=== PATIENT | male | born 1980 | race Caucasian/White ===

== ENCOUNTER 2019-01-04 22:31 | Emergency (ER) | payer OTHER ==
[~2019-01-04] VITALS: Ht 185.4 cm; Wt 143.2 kg
--- OUTSIDE RECORDS SUMMARY | ~2019-01-04 | XMS | Encounter Summary ---
Demographics + + + | Address | [address] | | | [place] [address] | + + + | Home Phone | | + + + | Preferred Language | Unknown | + + + | Marital Status | Single | + + + | Anabaptism Affiliation | NRP | + + + | Race | White | + + + | Ethnic Group | Not or | + + + Author + + + | Author | [facility] | + + + | Organization | [facility] | + + + | Address | Unknown | + + + | Phone | Unavailable | + + + Support + + +---------+ + | Name | Relationship | Address | Phone | + + +---------+ + | Marla Portillo | ECON | Unknown | | + + +---------+ + | Celia Castellanos | ECON | Unknown | | + + +---------+ + Care Team Providers + +------+ + | Care Pathology Tech Name | Role | Phone | + +------+ + | No Pcp Per Patient | PCP | Unavailable | + +------+ + Encounter Details +--------+ + + + + | Date | Type | Department | Care Team | Description | +--------+ + + + + | 09/13/ | Pharmacy | Outpatient Retail | | | | 2015 | Visit | [facility] | | | | | | [address] | | | | | | [facility] | | | | | | [place], [place] | | | | | | [address] | | | +--------+ + + + + Social History + + + +--------+------+ | Tobacco Use | Types | Packs/Day | Years | Date | | | | | Used | | + + + +--------+------+ | Current Every Day | Cigarettes | 1 | 24 | | | Smoker | | | | | + + + +--------+------+ + +---+---+---+ | Smokeless Tobacco: | | | | | Never Used | | | | + +---+---+---+ + + | Comments: smoking since age 10 | + + + + +---------+ + | Alcohol Use | Drinks/Week | oz/Week | Comments | + + +---------+ + | No | 0 Standard drinks | 0.0 | | | | or equivalent | | | + + +---------+ + + + + | Sex Assigned at | Date Recorded | | | | + + + | Not on file | | + + + + + + + | Job Start Date | Occupation | Industry | + + + + | Not on file | Not on file | Not on file | + + + + + + + + | Travel History | Travel Start | Travel End | + + + + + + | No recent travel history available. | + + documented as of this encounter Plan of Treatment Not on filedocumented as of this encounter Visit Diagnoses Not on filedocumented in this encounter"
--- OUTSIDE RECORDS SUMMARY | ~2019-01-04 | XMS | Encounter Summary ---
Demographics + + + | Address | [address] | | | [place] [address] | + + + | Home Phone | | + + + | Preferred Language | Unknown | + + + | Marital Status | Single | + + + | Mormon Affiliation | NRP | + + + | Race | White | + + + | Ethnic Group | Not or | + + + Author + + + | Author | [facility] | + + + | Organization | [facility] | + + + | Address | [...] Team Providers + +------+ + | Care Draw Frame Tender Name | Role | Phone | + +------+ + | Ana Ascencio NP | PCP | Unavailable | + +------+ + Encounter Details +--------+ + + + + | Date | Type | Department | Care Team | Description | +--------+ + + + + | 09/30/ | Telephone | Hematology/Medical | Rut Slade, | | | 2016 | | Oncology at [place] | MD Darron Lerner | | | | | [facility] | [place], [place] | | | | | [address] | [address] | | | | | Mailcode: [place] | [phone] | | | | | for Health and | | | | | | Healing, [address] | | | | | | [place], [place] | | | | | | [address] | | | | | | [phone] | | | +--------+ + + + [...]
--- OUTSIDE RECORDS SUMMARY | ~2019-01-04 | XMS | Encounter Summary ---
Demographics + + + | Address | [address] | | | [place] [address] | + + + | Home Phone | | + + + | Preferred Language | Unknown | + + + | Marital Status | Single | + + + | Adventism Affiliation | NRP | + + + | Race | White | + + + | Ethnic Group | Not or | + + + Author + + + | Author | [facility] | + + + | Organization | [facility] | + + + | Address [...] Team Providers + +------+ + | Care Mining Engineer Name | Role | Phone | + +------+ + | No Pcp Per Patient | PCP | Unavailable | + +------+ + Reason for Visit Consultation (Routine) +--------+--------+ + + + + | Status | Reason | Specialty | Diagnoses / | Referred By | Referred To | | | | | Procedures | Contact | Contact | +--------+--------+ + + + + | Closed | | Hematology & | Diagnoses | Vasquez, | [place], | | | | Oncology | Perirectal | [place] | MD Rut | | | | | abscess | [address] [address] | [address] | | | | | Procedures | [address] | | | | | CONSULT TO | [facility] | [place], [place] | | | | | HEMATOLOGY / | Rd | [address] | | | | | ONCOLOGY | [facility] [place] | Phone: | | | | | | [address] | [phone] | | | | | | Phone: | Fax: | | | | | | [phone] | [phone] | | | | | | Fax: | | | | | | | [phone] | | +--------+--------+ + + + + Encounter Details +--------+---------+ + + + | Date | Type | Department | Care Team | Description | +--------+---------+ + + + | 09/24/ | Office | Hematology/Medical | Rut Slade, | Chronic deep vein | | 2017 | Visit | Oncology at Center | [address] | thrombosis (DVT) of | | | | for Health [facility] Healing | [place], [place] | femoral vein of left | | | | [address] | [address] | lower extremity | | | | Mailcode: [place] | [phone] | (HCC) (Primary Dx) | | | | for Health and | | | | | | Healing, [address] | | | | | | [place], [place] | | | | | | [address] | | | | | | [phone] | | | +--------+---------+ + + + Social History + + [...] + + documented as of this encounter Progress Notes Rut Slade MD - 09/24/2016 1:30 PM PSTOutpatient Hematology Note Consult: 09/25/2015 Last visit: 09/25/2015 Today: 09/24/2016 Referring provider: ALESSANDRO Steward DX: h/o L. Leg DVT [id number] US: L. Leg DVT Patient did not arrive to appointment. 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
--- OUTSIDE RECORDS SUMMARY | ~2019-01-04 | XMS | Encounter Summary ---
Demographics + + + | Address | [address] | | | [place] [address] | + + + | Home Phone | | + + + | Preferred Language | Unknown | + + + | Marital Status | Single | + + + | Baptist Affiliation | NRP | + + + | Race | White | + + + | Ethnic Group | Not or | + + + Author + + + | Author | [facility] | + + + | Organization | [facility] | + + + | Address | Unknown | + + + | Phone | Unavailable | + + + Support + + +---------+ + | Name | Relationship | Address | Phone | + + +---------+ + | Marla Kent | ECON | Unknown | | + + +---------+ + | Celia Castellanos | ECON | Unknown | | + + +---------+ + Care Team Providers + +------+ + | Care [employer]mer Name | Role | Phone | + +------+ + | Ana Ascencio SOIL SCIENCE PROFESSOR | PCP | Unavailable | + +------+ + Reason for Referral Consultation (Routine) +--------+--------+ + + + + | Status | Reason | Specialty | Diagnoses / | Referred By | Referred To | | | | | Procedures | Contact | Contact | +--------+--------+ + + + + | Closed | | Hematology & | Diagnoses | Vasquez, | [place] | | | | Oncology | Perirectal | Sully | MD Francisca | | | | | abscess | ACNP [address] | [address] | | | | | Procedures | [address] | | | | | CONSULT TO | [facility] | [place], [place] | | | | | HEMATOLOGY / | Rd | [address] | | | | | ONCOLOGY | [place], [place] | Phone: | | | | | | [address] | [phone] | | | | | | Phone: | Fax: | | | | | | [phone] | [phone] | | | | | | Fax: | | | | | | | [phone] | | +--------+--------+ + + + + Reason for Visit AUTH/CERT +--------+--------+ + + + + | Status | Reason | Specialty | Diagnoses / | Referred By | Referred To | | | | | Procedures | Contact | Contact | +--------+--------+ + + + + | | | | | | | +--------+--------+ + + + + Encounter Details +--------+ + + + + | Date | Type | Department | Care Team | Description | +--------+ + + + + | 09/10/ | Hospital | [facility] [address] | Cinthia Oro MD | | | 2016 - | Encounter | [address] | [address] | | | | | [place] [address] | [place], | | | 09/13/ | | [phone] | [place] [address] | | | 2015 | | | [phone] | | | | | | | | +--------+ + + + [...] + + documented as of this encounter Last Filed Vital Signs + + + + + | Vital Sign | Reading | Time Taken | Comments | + + + + + | Blood Pressure | 138/71 | 09/13/2015 8:02 AM | | | | | PST | | + + + + + | Pulse | 81 | 09/13/2015 8:02 AM | | | | | PST | | + + + + + | Temperature | 36.6 C (97.9 F) | 09/13/2015 8:02 AM | | | | | PST | | + + + + + | Respiratory Rate | 19 | 09/13/2015 8:02 AM | | | | | PST | | + + + + + | Oxygen Saturation | 95% | 09/13/2015 8:02 AM | | | | | PST | | + + + + + | Inhaled Oxygen | - | - | | | Concentration | | | | + + + + + | Weight | 151 kg (332 lb 12.8 | 09/10/2015 12:39 PM | | | | oz) | PST | | + + + + + | Height | 185.4 cm (6' 1") | 09/10/2015 12:39 PM | | | | | PST | | + + + + + | Body Mass Index | 43.91 | 09/10/2015 12:39 PM | | | | | PST | | + + + + + documented in this encounter Discharge Summaries Sully Ovalle ACNP - 09/13/2015 9:15 AM PST INPATIENT PHYSICIAN DISCHARGE SUMMARY [facility] Green Surgery Team Attending Physician: Cinthia Oro MD PCP: Ana Ascencio NP Admission Date: 09/10/2015 Discharge Date: Diagnoses Principal Final Diagnosis: 1. Hidradenitis suppurativa, pilonidal sinus with left pilonidal abscess, infected left gre ater than right perianal hidradenitis, morbid obesity with BMI 44, severe anal pain Additional Diagnoses: poorly controlled Type 2 Diabetes, tobacco use Procedures 1. Anorectal exam under anesthesia. 2. Drainage of pilonidal abscess. 3. Drainage of infected perianal hidradenitis, extensive. 4. Placement of 4 setons, 1 seton into the pilonidal abscess and the other 3 setons into th e right hidradenitis suppurative Reason For Admission: Morbid obesity, pilonidal sinus with left pilonidal abscess, infected left great than right perianal hidradenitis Hospital Course: Fede Townsend is a 34-year-old male, a morbidly obese ( BMI 44), diabetic male smoker, wh o complained of intermittent low back swelling, pain and drainage since about 2005 without surgical intervention. He was seen by Dr. Oro on September 10, 2015, [facility] Dr[facility] Devan Butler. He had multiple openings in the posterior anal margin and in th e left superior buttock that were draining with uncertain abscess formation. He had severe p ain as well. He was admitted for pain control on September 10, had improvement in his glycem ic control, with nutritional support, insulin coverage, and continued evaluation/discussion about his chosen foods, carb load and choosing lower portions of food, as well as meal plann ing. The hemoglobin A1 C was 10.5 on admission, from 10.4 in June 2015 at the PCP clinic at [facility] in [place]. The vascular duplex of BLE revealed a chronic righ t popliteal/femoral thrombus, non-occlusive with recommendations from Hematology for 2 weeks of 40 mg subcu Lovenox, and followup with the Parks Recreation Coordinator on September 25.. He underwen t exam under anesthesia, placement of 4 Setons, and unroofing of an inflamed hydradenitis wi thout complications.. Findings included numerous openings around the posterior anal margin , pus coming from the left posterior anal margin, a sinus in the midline that was more cep halad which communicated with a left posterior abscess. This appeared to be a pilonidal cyst with an associated abscess and partially draining infected hidradenitis suppurativa. The t unnels were well cannulated and he had placement of 3 setons on the right and 1 seton betwee n the pilonidal sinus and the abscess. There were no complications. He recovered well, wa s eating well without nausea, having bowel movements, vital signs were in range and afebrile . The CBG was 104 in the morning on average every morning, and elevated in the high 140's t o 150's after daytime intake. He was instructed in Lovenox injection daily for 13 days. . He was discharged home in stable condition on HD 4, POD 1. He will return on September 25 for followup with Hematology for discussion of his DVT and postop with Colorectal Surgery cl inic. . Discharge Medication List as of 09/13/2015 12:52 PM START taking these medications Details enoxaparin 40 mg/0.4 mL subcutaneous syringe Inject 0.4 mL under the skin once daily in the evening for 13 doses., Disp-5.2 mL, R-0, eRx oxyCODONE, immediate release, 5 mg oral tablet Take 1 to 3 tablets by mouth every 3 hours a s needed for moderate pain. Taper down to last for 2 weeks., Disp-135 tablet, R-0, eRx polyethylene glycol 17 gram/dose oral powder Dissolve 17g in at least 4 ounces of liquid an d drink once daily., Disp-255 g, R-0, eRx CONTINUE these medications which have CHANGED or have new prescriptions Details acetaminophen 325 mg oral tablet Take 1 to 2 tablets by mouth every 4 hours as needed for m oderate pain., Disp-100 tablet, R-1, eRx CONTINUE these medications which have NOT CHANGED Details cyclobenzaprine 10 mg oral tablet Take 10 mg by mouth three times daily as needed. Do not u se longer than 2-3 weeks., Historical Med docusate sodium 100 mg oral capsule Take 100 mg by mouth two times daily., Historical Med glipiZIDE 5 mg oral tablet Take 5 mg by mouth once daily., Historical Med linagliptin 5 mg oral tablet Take 5 mg by mouth once daily., Historical Med metFORMIN 1,000 mg oral tablet Take 1,000 mg by mouth two times daily., Historical Med MULTIVITAMIN ORAL Take 1 tablet by mouth once daily., Historical Med Potassium Gluconate 595 (99) mg oral tablet Take 595 mg by mouth every two days., Historica l Med PSYLLIUM SEED, WITH DEXTROSE, (FIBER ORAL) Take by mouth. Fiber gummies 2 once a day, Hist orical Med STOP taking these medications oxyCODONE-acetaminophen 5-325 mg oral tablet Comments: Reason for Stopping: Wound Care Keep your anal area dry. Shower twice daily with antibacterial soap, pat dry. Diet Diabetic (Consistent Carbohydrate) Diabetic diet (Consistent Carbohydrate)- You should be careful to control your daily inta ke of carbohydrates and ensure that you are consuming the same amount of carbohydrates each day. Your health care provider will work with you to determine the appropriate amount of ca rbohydrates your body needs. Dilute your juices in half, use the diet Tea with no sugar. Se e your instructions for carb counting. Reduce desserts to 1/2, and spread out over 2 days. Activity 1. No heavy lifting > 10lbs for 2 weeks 2. No driving while on narcotics or feeling weak and dizzy 3. Tub baths or shower twice daily for anal care 4. May shower Destination: Destination: Home Condition on Discharge Stable Future Appointments Provider Department Dept Phone Center 09/25/2015 4:40 PM Cinthia Oro [facility] 6th Floor [phone] [facility] Schedule the following appointment(s) when you get home Follow up with CINTHIA ORO MD In 2 weeks. Specialty: General Surgery Contact information [address] [place] [address] Follow up with FRANCISCA BANERJEE MD On 09/25/2015. Specialty: Hematology & Oncology Why: at 1pm for follow up regarding lower extremity DVT Contact information [address] [place] [address] Other Discharge Orders and Instructions Medication Refill Instructions: If you need a refill on any narcotic pain medications, please call the clinic ([phone] ) by 2 pm on for any weekend needs. It will take 3 business days to mail any presc riptions to you. The resident will not be able to fill narcotic scripts after 5 pm daily an d on the weekends. Please plan ahead and keep track of how many pain pills you have left. When to Call the Doctor - If your incision becomes red, swollen, or has any bloody or pus-like drainage. - If you have a fever of 101.5 F or greater or if you have chills - If you have increased pain, unrelieved by your pain medications - If you have persistent nausea, vomiting, diarrhea, or no bowel movement for more than 2 d ays after discharge from the hospital - If you develop any unusual signs or symptoms, including chest pain, shortness of breath, pulmonary embolism, leg swelling, pain or redness that is abnormal for you, and other sympto ms of concern - If you have any questions or concerns. How to Call the Doctor - You may contact your doctor Wednesday through Wednesday during the day time hours by calling [facility] surgery office at [phone] - After hours, weekends and holidays, you may call the hospital paving machine operator at [phone] an d have the tone artist apprentice [place] Team for general surgery paged. Constipation: It is very important to avoid constipation and straining while trying to have a bowel movem ent. It is common to experience constipation after your operation and when taking narcotics . There are medication like stool softeners ( colace a.k.a. Docusate Sodium) or laxatives ( miralax, senokot+stool softener, Dulcolax suppository). Please work towards having a bowel movement every 1-2 days. A hot drink each morning will also help the sphincter to work in p ushing the stool forward. It is important to stay hydrated, about 45- 60 fluid ounces daily , and this will help your bowel function. Pain: It is expected that you will experience pain after your operation, and it is important to h ave you manage your pain to increase your activity, sleep and overall healing. You are bein g sent home with a prescription for pain relief. This should be taken every 3-6 hours per y our instructions. Some medications, like lortab or hydrocodone have Tylenol in it. Make yaya e you do not take more than 3,000 mg of tylenol or acetaminophen in 24 hours. Outstanding labs/studies: ALESSANDRO Steward [facility] [address] [facility] [place] [address] Discharging Physician: ALESSANDRO Steward Attending Physician: Cinthia Oro MD documented in thi s encounter Medications at Time of Discharge + + + +---------+--------+ + | Medication | Sig | Dispensed | Refills | Start | End Date | | | | | | Date | | + + + +---------+--------+ + | glipiZIDE 5 mg | Take 5 mg by mouth | | 0 | | | | oral tablet | once daily. | | | | | + + + +---------+--------+ + | linagliptin 5 mg | Take 5 mg by mouth | | 0 | | | | oral tablet | once daily. | | | | | + + + +---------+--------+ + | metFORMIN 1,000 mg | Take 1,000 mg by | | 0 | | | | oral tablet | mouth two times | | | | | | | daily. | | | | | + + + +---------+--------+ + | MULTIVITAMIN ORAL | Take 1 tablet by | | 0 | | | | | mouth once daily. | | | | | + + + +---------+--------+ + | Potassium | Take 595 mg by mouth | | 0 | | | | Gluconate 595 (99) | every two days. | | | | | | mg oral tablet | | | | | | + + + +---------+--------+ + | PSYLLIUM SEED, | Take by mouth. | | 0 | | | | WITH DEXTROSE, | Fiber gummies 2 once | | | | | | (FIBER ORAL) | a day | | | | | + + + +---------+--------+ + documented as of this encounter Progress Notes Sully Ovalle ACNP - 09/13/2015 7:41 AM PST [facility] Green Surgery Inpatient Progress Note Hospital Day #3 Author: ALESSANDRO Steward Attending: Cinthia Oro MD ID: Fede Boyer is a 34 year old male, POD 1, HD 4 anorectal exam under anesthesia, d rainage of pilonidal abscess, drainage of infected perianal hidradenitis, extensive, 4 seton s placed Interval Hx: - Down smoking on 8th floor, nicotine patch was only used once - Pain with sitting, improved now with oral pain med - Dc today - Will discuss the need for 2 weeks of Lovenox, discuss his willingness to give these in jections, F/U with Hematology here. [address], compliance has been an issue with diabeti c management - Was given the glucose monitor, teaching was done Subjective: 1. Pain: 2. Nausea and vomitin. Diet 4. Flatus 5. Bowel Movement/ostomy: 6. Ambulation: Physical Examination Last Vitals: BP 108/45 | Pulse 97 | Temp 36.8 C (98.2 F) | RR 20 | Ht 1.854 m (6' 1") | Wt 150.957 kg (332 lb 12.8 oz) | SpO2 95% | BMI 43.92 kg/(m^2) 24 Hour Vital Min/Max: Systolic (24hrs), Av mmHg, Min:108 mmHg, Max:148 mmHgDiastolic (24hrs), Av mmHg, M in:45 mmHg, Max:75 mmHgPulse Av.1 Min: 85 Max: 111 Temp Av.8 C (98.3 F) Min: 36.6 C (97.9 F) Max: 37.6 C (99.7 F) Resp Av.7 Min: 16 Max: 25 SpO2 Av.8 % Min: 82 % Max: 99 % Intake/Output Summary (Last 24 hours) at 09/13/15 0700 Last data filed at 09/13/15 0600 Gross per 24 hour Intake 3072.5 ml Output 4850 ml Net -1777.5 ml General: Awake, alert, and oriented x4, no acute distress HEENT: PERRLA, EOMI Pulm: Bilaterally clear to auscultation; negative wheezes or rales; excellent inspiratory e ffort Cardio: Regular rate and rhythm; negative murmur, rubs, or gallops; S1S2 Abdomen: Soft. Non-tender to palpation in all four quadrants, Normal active bowel sounds MS: Moves all extremities well, Warm and well perfused Derm: -no erythema, edema, ecchymosis Wound: moisture evident at the anal area, [address], decreased drainage/swellin g, no pus Current Inpatient Medications Medication Dose Route Frequency acetaminophen (TYLENOL) tablet 325-650 mg 325-650 mg oral Q4H PRN cyclobenzaprine (FLEXERIL) tablet 10 mg 10 mg oral Q8H PRN docusate sodium (COLACE) capsule 100 mg 100 mg oral BID enoxaparin (LOVENOX) injection 40 mg 40 mg subcutaneous QPM glucagon (GLUCAGEN) injection 1 mg 1 mg intramuscular PRN glucose chewable tablet 16 g 16 g oral PRN HYDROmorphone (DILAUDID) injection 0.2-0.6 mg 0.2-0.6 mg intravenous Q2H PRN insulin lispro (HUMALOG) injection subcutaneous QID nalOXone (NARCAN) injection intravenous PRN nicotine polacrilex (NICORETTE) gum 2 mg 2 mg oral PRN ondansetron (ZOFRAN) injection 4 mg 4 mg intravenous Q12H PRN oxyCODONE (immediate release) (ROXICODONE) tablet 5-15 mg 5-15 mg oral Q3H PRN promethazine (PHENERGAN) injection 12.5 mg 12.5 mg intravenous Q8H PRN Chemistries: Last 72 Hours (or 3 results): Recent Labs 09/10/15 1255 09/12/15 0528 09/12/15 1832 09/12/15 2209 09/13/15 0712 NA 139 -- 137 -- -- -- -- K 4.0 -- 4.0 -- -- -- -- CL 105 -- 103 -- -- -- -- BICARB 27 -- 27 -- -- -- -- BUN 7 -- 14 -- -- -- -- CR 0.66* -- 0.68* -- -- -- -- GLU 100* < > 137* < > 160* 104* 196* CA 8.7 -- 8.7 -- -- -- -- MG 1.4* -- 1.7* -- -- -- -- PO4 3.7 -- 4.1 -- -- -- -- < > = values in this interval not displayed. CBC with diff last 72 hours (or 3 results) Recent Labs 09/11/15 0448 09/12/15 0528 09/13/15 0517 WBC 10.44 8.66 10.82 HB 13.2* 13.3* 13.7 HCT 38.8* 38.4* 40.0* PLT 197 208 215 Patient Active Problem List Diagnosis Perirectal abscess DVT (deep venous thrombosis) ([facility]) DM2 (diabetes mellitus, type 2) ([facility]) Obesity Nicotine addiction ASSESSMENT AND PLAN: Fede Boyer is a 34 y.o. 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 PO D 1 now for anorectal exam under anesthesia, HD 4 NEURO - - Pain control: prn tylenol, prn Oral oxycodone, IV dilaudid for breakthrough CV - BP in range -Continue to monitor PULM - Room air sats in range FEN -no labs were needed GI - Pilonidal/perirectal abscess - had discussion with Dr. Quintero about findings, procedure, care and preventioin RENAL - No issues - Eval for adequate UO ENDO - Hx fo poorly controlled DM2, home medications include three hypoglycemics - Moderate insulin sliding scale, CBGs, no insulin needs in last 24hrs - Hold home oral regimen - Nutrition following for ongoing education, sugar free tea recommended - Called his PCP for last HgA1C. 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 Provide for a home One Touch Monitor. P CP contact number at [facility] is [phone]. I was able to talk with his provider, Pancho Ascencio SOIL SCIENCE PROFESSOR, who has had 2 clinic visits, changed from the prior provider due to noncom pliance. The last HgA1C was 10.4 on 07/06/2015. She added the Tragenta, with 1 tab daily (no t the 1-2 tabs he is describing with high carb intake). 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 She d iscussed exercise, lifestyle changes to improve his Diabetes. HEME/ID - Hx of prior DVT, duplex with evidence of chronic appearing popliteal/femoral thro mbus, non-occlusive, - prophy lovenox for 2 weeks, see if patient if agreeable - patient is agreeable for 2 weeks of home Lovenox, patient education. Will run the script for cost. See Hematology and Dr. Oro on September 25 ALESSANDRO Steward [facility] [address] [place] [address] This assessment and plan was formulated both independently and in conjunction with the Surg ical team as well as the attending provider above. Shun Turpin MD - 09/12/2015 1:40 PM PSTBrief Post Rounds Addendum: Final result of lower extremity duplex: RIGHT: No evidence of deep or superficial vein thrombosis in the right leg. LEFT: In the left leg, there is deep vein thrombosis in the distal femoral and popliteal ve ins. There is no evidence of superficial vein thrombosis in the left leg. This is difficult to interpret given reported history of similar clot and he has undergone some treatment. At this time, we would recommend continuing prophylactic dose lovenox (40mg daily) at the time of discharge for [address] a hematology consult (please reque st appointment with Dr. Banerjee) at the time of discharge to discuss with plaster mechanic abo ut future plans. Shun Garcia MD [facility] Internal Medicine PGY-3 Pager [phone] Patient staffed with attending physician, Dr. Banerjee, who agrees with the above assessme nt and plan. Kenny Loco Md - 09/12/2015 12:30 PM PSTINPATIENT BRIEF OPERATIVE NOTE Procedure Date: 09/12/2015 Author: Kenny Quintero MD Attending Physician: MD Brandy Assistants: MD Leon Prior to the beginning of the procedure, the team paused to verify the patient s identity , the procedure to be performed (in accordance with the consent,) and the correct side/site. The patient was positioned appropriately. All relevant images and results were properly lab eled and displayed. We addressed antibiotic prophylaxis and fluids for irrigation as applica ble to this patient. Any safety precautions were addressed. Preoperative Diagnosis: Hydradenitis, Pilonidal Disease Postoperative Diagnosis: Same Procedure Performed: Exam under anesthesia, Placement of Seton x 4, Unroofing of inflamed h ydradenitis Estimated Blood Loss: 5cc Janet Mcelroy MD - 09/12/2015 5:52 AM PST GREEN PROGRESS: Attending Physician: Cinthia Oro MD 09/12/2015 ID:Fede Boyer is a 34 y.o. 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 HD#2 INTERVAL/SUBJECTIVE: -Seen by [facility] consultant yesterday -Hematology recommendations pending final report of duplex, enoxaparin held for surgery tod ay -Feeling well this am and ready for surgery -Afebrile, non-tachycardic -Blood sugars moderately well controlled, no insulin requirements in last 24 hours -Tolerated diabetic diet yesterday MEDICATIONS: Current facility-administered medications: acetaminophen (TYLENOL) tablet 325-650 mg, 325-6 50 mg, oral, Q4H PRN, Janet Raza MD, 650 mg at 09/12/15 0025 dextrose 50 % in water IV 25 mL, 25 mL, intravenous, PRN, Janet Raza MD docusate sodium (COLACE) capsule 100 mg, 100 mg, oral, BID, Sully Ovalle, ACNP, 100 mg at 09/12/15 0025 glucagon (GLUCAGEN) injection 1 mg, 1 mg, intramuscular, PRN, Janet Raza MD glucose chewable tablet 16 g, 16 g, oral, PRN, Janet Raza MD HYDROmorphone (DILAUDID) injection 0.2-0.6 mg, 0.2-0.6 mg, intravenous, Q2H PRN, Janet Raza MD insulin lispro (HUMALOG) injection, , subcutaneous, QID, Janet Raza MD, 2 Units at 0 09/11/15 0630 lactated ringers IV, 75 mL/hr, intravenous, CONTINUOUS, ALESSANDRO Steward, Last Rate: 75 mL/hr at 09/12/15 0128, 75 mL/hr at 09/12/15 0128 nicotine (NICOTROL) 21 mg/24 hr patch 1 patch, 1 patch, transdermal, DAILY, ALESSANDRO Walters, Stopped at 09/10/15 2113 nicotine polacrilex (NICORETTE) gum 2 mg, 2 mg, oral, PRN, Janet Raza MD ondansetron (ZOFRAN) injection 4 mg, 4 mg, intravenous, Q12H PRN, Janet Raza MD oxyCODONE (immediate release) (ROXICODONE) tablet 5-15 mg, 5-15 mg, oral, Q3H PRN, ALESSANDRO Steward, 15 mg at 09/12/15 0331 sodium phosphates (FLEET) 19-7 gram/118 mL rectal enema 1 Bottle, 1 Bottle, rectal, ONCE, V ictoria ALESSANDRO Ovalle OBJECTIVE: Last Vitals: BP 138/70 | Pulse 78 | Temp 36.5 C (97.7 F) | RR 20 | Ht 1.854 m (6' 1") | Wt 150.957 kg (332 lb 12.8 oz) | SpO2 93% | BMI 43.92 kg/(m^2) 24 Hour Vital Min/Max: Systolic (24hrs), Av mmHg, Min:113 mmHg, Max:144 mmHg Diastolic (24hrs), Av mmHg, Min:61 mmHg, Max:77 mmHg Pulse Min: 68 Max: 78 Temp Min: 36.5 C (97.7 F) Max: 36.6 C (97.9 F) Resp Min: 18 Max: 20 SpO2 Min: 92 % Max: 96 % Intake/Output Summary (Last 24 hours) at 09/12/15 0554 Last data filed at 09/12/15 0500 Gross per 24 hour Intake 2371 ml Output 3125 ml Net -754 ml PHYSICAL EXAM: General: Alert and oriented, NAD Respiratory: unlabored, breathing comfortably on Room air CV: Normal peripheral perfusion Abdomen: obese, soft, nontender, nondistended. Extremities: Warm and well perfused LABS: Chemistries Recent Labs 09/10/15 1255 09/11/15 1146 09/11/15 1822 09/12/15 0025 NA 139 -- -- -- -- K 4.0 -- -- -- -- CL 105 -- -- -- -- BICARB 27 -- -- -- -- BUN 7 -- -- -- -- CR 0.66* -- -- -- -- GLU 100* < > 133* 134* 124* CA 8.7 -- -- -- -- MG 1.4* -- -- -- -- PO4 3.7 -- -- -- -- AST 26 -- -- -- -- ALT 35 -- -- -- -- AP 74 -- -- -- -- TBILI 0.4 -- -- -- -- ALB 3.1* -- -- -- -- < > = values in this interval not displayed. CBC with diff Recent Labs 09/10/15 1255 09/11/15 0448 09/12/15 0528 WBC 8.98 10.44 8.66 HB 14.8 13.2* 13.3* HCT 42.4 38.8* 38.4* PLT 228 197 208 [facility] Lab Results Component Value Date INRPT 1.14 09/10/2015 CBG's Recent Labs 09/10/15 1255 09/10/15 1324 09/10/15 1835 09/10/15 2216 09/11/15 0618 09/11/15 1146 09/11/15 1822 09/12/15 0025 GLU 100* 84 147* 142* 156* 133* 134* 124* ASSESSMENT AND PLAN: Fede Boyer is a 34 y.o. 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 Plan for OR today. NEURO - - Pain control: prn tylenol, prn Oral oxycodone, IV dilaudid for breakthrough CV - BP in range -Continue to monitor PULM - Room air sats in range FEN - NPO for procedure today GI - Pilonidal/perirectal abscess - Consented for OR today; EUA, possible I&D, possible seton, possible fistulotomy RENAL - No issues - Eval for adequate UO ENDO - Hx fo poorly controlled DM2, home medications include three hypoglycemics - Moderate insulin sliding scale, CBGs, no insulin needs in last 24hrs - Hold home oral regimen - Nutrition following for ongoing education, sugar free tea recommended - Called his PCP for last HgA1C. 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 Provide for a home One Touch Monitor. P CP contact number at [facility] is [phone]. I was able to talk with his provider, Pancho Ascencio SOIL SCIENCE PROFESSOR, who has had 2 clinic visits, changed from the prior provider due to noncom pliance. The last HgA1C was 10.4 on 07/06/2015. She added the Tragenta, with 1 tab daily (no t the 1-2 tabs he is describing with high carb intake). 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 She d iscussed exercise, lifestyle changes to improve his Diabetes. HEME/ID - Hx of prior DVT, duplex with evidence of chronic appearing popliteal/femoral thro mbus, non-occlusive, by initial read, final pending - Therapeutic lovenox - Follow up duplex final read and hematology recommendations, DVT ppx per standard protocol PROPHY - therapeutic lovenox, held for procedure today Prophylaxis: Feeding: NPO Activity: Ambulate Sedation/Sleep: na VTE PPY: SCDs, Lovenox Head of bed: >30 degrees Ulcer PPY: none Glycemic Control: SSI Infection PPY: IS, all catheter & line dates reviewed; Janet Raza MD [facility] Surgery, [address] [place] [id number] Diagnoses: K61.1 Perirectal abscess Sully Lugo ACNP - 09/11/2015 6:13 AM PST [place] PROGRESS: Attending Physician: Cinthia Oro MD 09/11/2015 ID:Fede Boyer is a 34 y.o. 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 The Brisk bottled Sweetened Tea that he likes throughout the day has 19 G sugar, 19 g carbs. He will eat at times a whole carton of cottage cheese with canned peaches, tries fo r lite syrup choice. He has difficulty eating healthy on the road, and while on a budget. Angela viera feels that if a doctor comes to tell him what to do with his Diabetes, then he will be ups et. We discussed his current HgA1C of 10, and ways to improve it, including the Dietary cho ices. He is amenable to the Park Services Specialist talking with him. Will provide the One Touch Meche sabrina today for his use MEDICATIONS: Current facility-administered medications: acetaminophen (TYLENOL) tablet 325-650 mg, 325-6 50 mg, oral, Q4H PRN, Janet Raza MD, 325 mg at 09/11/15 0610 dextrose 50 % in water IV 25 mL, 25 mL, intravenous, PRN, Janet Raza MD docusate sodium (COLACE) capsule 100 mg, 100 mg, oral, BID, ALESSANDRO Steward, 100 mg at 09/10/153 enoxaparin (LOVENOX) injection 150 mg, 1 mg/kg, subcutaneous, Q12H (Scheduled), Vivi lomeli MD, 150 mg at 09/10/152112 glucagon (GLUCAGEN) injection 1 mg, 1 mg, intramuscular, PRN, Janet Raza MD glucose chewable tablet 16 g, 16 g, oral, PRN, Janet Raza MD HYDROmorphone (DILAUDID) injection 0.2-0.6 mg, 0.2-0.6 mg, intravenous, Q2H PRN, Janet Raza MD insulin lispro (HUMALOG) injection, , subcutaneous, QID, Janet Raza MD, 2 Units at 0 09/10/15 222 lactated ringers IV, 50 mL/hr, intravenous, CONTINUOUS, ALESSANDRO Steward, Last Rate: 50 mL/hr at 09/10/15 1425, 50 mL/hr at 09/10/15 1425 nicotine (NICOTROL) 21 mg/24 hr patch 1 patch, 1 patch, transdermal, DAILY, ALESSANDRO Walters, Stopped at 09/10/152112 nicotine polacrilex (COMMIT) lozenge 2 mg, 2 mg, oral, Q2H PRN, ALESSANDRO Steward ondansetron (ZOFRAN) injection 4 mg, 4 mg, intravenous, Q12H, Janet Raza MD, 4 mg at 09/10/15 1424 ondansetron (ZOFRAN) injection 4 mg, 4 mg, intravenous, Q12H PRN, Janet Raza MD oxyCODONE (immediate release) (ROXICODONE) tablet 5-15 mg, 5-15 mg, oral, Q3H PRN, ALESSANDRO Steward, 10 mg at 09/11/15 0610 [START ON 09/12/2015] sodium phosphates (FLEET) 19-7 gram/118 mL rectal enema 1 Bottle, 1 Naeem ttle, rectal, ONCE, ALESSANDRO Steward OBJECTIVE: Last Vitals: BP 121/63 | Pulse 78 | Temp 36.5 C (97.7 F) | RR 18 | Ht 1.854 m (6' 1") | Wt 150.957 kg (332 lb 12.8 oz) | SpO2 96% | BMI 43.92 kg/(m^2) 24 Hour Vital Min/Max: Systolic (24hrs), Av mmHg, Min:119 mmHg, Max:137 mmHg Diastolic (24hrs), Av mmHg, Min:63 mmHg, Max:67 mmHg Pulse Min: 77 Max: 78 Temp Min: 36.5 C (97.7 F) Max: 36.5 C (97.7 F) Resp Min: 16 Max: 18 SpO2 Min: 95 % Max: 96 % Intake/Output Summary (Last 24 hours) at 09/11/15 0613 Last data filed at 09/11/15 0300 Gross per 24 hour Intake 1934.17 ml Output 725 ml Net 1209.17 ml PHYSICAL EXAM: General: Alert and oriented, NAD Respiratory: unlabored, breathing comfortably on Room air CV: Normal peripheral perfusion Abdomen: obese, soft, nontender, nondistended. Extremities: Warm and well perfused, LLE larger in diameter than RLE LABS: Chemistries Recent Labs 09/10/15 1255 09/10/15 1324 09/10/15183409/10/156 NA 139 -- -- -- K 4.0 -- -- -- CL 105 -- -- -- BICARB 27 -- -- -- BUN 7 -- -- -- CR 0.66* -- -- -- GLU 100* 84 147* 142* CA 8.7 -- -- -- MG 1.4* -- -- -- PO4 3.7 -- -- -- AST 26 -- -- -- ALT 35 -- -- -- AP 74 -- -- -- TBILI 0.4 -- -- -- ALB 3.1* -- -- -- CBC with diff Recent Labs 09/10/15 1255 09/11/15 0448 WBC 8.98 10.44 HB 14.8 13.2* HCT 42.4 38.8* PLT 228 197 Coag Lab Results Component Value Date INRPT 1.14 09/10/2015 CBG's Recent Labs 09/10/15 1255 09/10/15 1324 09/10/15 18309/10/156 GLU 100* 84 147* 142* ASSESSMENT AND PLAN: Fede Boyer is a 34 y.o. 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 NEURO - - Pain control: prn tylenol, prn Oral oxycodone, IV dilaudid for breakthrough CV - BP in range -Continue to monitor PULM - Room air sats in range FEN - Diabetic diet, NPO at midnight with MIVF GI - Pilonidal/perirectal abscess - Consented for OR tomorrow; EUA, possible I&D, possible seton, possible fistulotomy RENAL - No issues - Eval for adequate UO ENDO - Hx fo poorly controlled DM2, home medications include three hypoglycemics - Moderate insulin sliding scale, CBGs - Hold home oral regimen - Possible Endo consult today for home insulin control planning or care areas of improvemen t including education, Nutritional choices, call his PCP for last HgA1C. 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 Provide for a home One Touch Monitor. PCP contact number at [facility] is [phone] . I was able to talk with his provider, Ana Ascencio NP, who has had 2 clinic visits, ch anged from the prior provider due to noncompliance. The last HgA1C was 10.4 on 07/06/2015. She added the Tragenta, with 1 tab daily (not the 1-2 tabs he is describing with high carb intake). 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 She will send me the last clinic note. He has dif ficulty following up with the necessary clinic visits for followup. She discussed exercise, lifestyle changes to improve his Diabetes. HEME/ID - Hx of prior DVT, duplex with evidence of chronic appearing popliteal/femoral thro mbus, non-occlusive - Therapeutic lovenox - Hematology consult this am PROPHY - therapeutic lovenox Prophylaxis: Feeding: Diabetic diet Activity: Ambulate Sedation/Sleep: na VTE PPY: SCDs, Lovenox Head of bed: >30 degrees Ulcer PPY: none Glycemic Control: SSI Infection PPY: IS, all catheter & line dates reviewed; Janet Raza MD [facility] Green Surgery, [address] [place] [id number] -addendum Sully Ovalle, [facility] [address] [place] [address] Diagnoses: K61.1 Perirectal abscess Associated attestation - Cinthia Oro MD - 09/12/2015 7:39 AM PST[facility] Progress Note I have seen and examined the patient with the resident. I have repeated the critical porti ons of the history and exam. I discussed the case with the resident team, agree with the h istory and findings, and formulated the plan as documented in the resident's note and as add ended by Ms. Ovalle, with the following additions: Assessment: 34 y.o. morbidly obese (BMI 44.7) male with prior yeast infection near penis prior left calf DVT diabetes/1 ppd x 24 years smoker LE dopplers (09/10/15) await final read Hematology consult Ok to hold therapeutic lovenox for surgery Further recommendations to follow final read of LE dopplers Plan: Appreciate nutrition/dietary consult. Appreciate hematology consult. Hold lovenox tonight. NPO after midnight Anorectal exam under anesthesia, possible drainage, possible seton, possible fistulotomy, t omorrow, on 09/26/14. Prone heri-knife position. Fleets enema the morning of surgery. Continue pain medications. Review of systems: See resident/Ms. Ovalle's note. All other systems reviewed and are ne gative. documented in this encounter Plan of Treatment Not on filedocumented as of this encounter Procedures + +--------+ + + + | Procedure Name | Priori | Date/Time | Associated Diagnosis | Comments | | | ty | | | | + +--------+ + + + | OPERATION RECORD | | 10/07/2015 | | Results for this | | | | 2:59 PM | | procedure are in the | | | | PST | | results section. | + +--------+ + + + | CAPILLARY BLOOD | Routin | 09/13/2015 | Perirectal abscess | Results for this | | GLUCOSE (NO CHG), | e | 8:00 AM | | procedure are in the | | POC | | PST | | results section. | + +--------+ + + + | CAPILLARY BLOOD | Routin | 09/13/2015 | Perirectal abscess | Results for this | | GLUCOSE (NO CHG), | e | 7:12 AM | | procedure are in the | | POC | | PST | | results section. | + +--------+ + + + | CBC (HEMOGRAM) ONLY | Urgent | 09/13/2015 | | Results for this | | | | 5:17 AM | | procedure are in the | | | | PST | | results section. | + +--------+ + + + | CBC ONLY | Urgent | 09/13/2015 | | Results for this | | | | 5:17 AM | | procedure are in the | | | | PST | | results section. | + +--------+ + + + | CAPILLARY BLOOD | Routin | 09/12/2015 | Perirectal abscess | Results for this | | GLUCOSE (NO CHG), | e | 10:09 PM | | procedure are in the | | POC | | PST | | results section. | + +--------+ + + + | CAPILLARY BLOOD | Routin | 09/12/2015 | Perirectal abscess | Results for this | | GLUCOSE (NO CHG), | e | 6:32 PM | | procedure are in the | | POC | | PST | | results section. | + +--------+ + + + | CAPILLARY BLOOD | Routin | 09/12/2015 | Perirectal abscess | Results for this | | GLUCOSE (NO CHG), | e | 1:06 PM | | procedure are in the | | POC | | PST | | results section. | + +--------+ + + + | ANAL FISTULOTOMY | Electi | 09/12/2015 | Rectal pain | | | | ve | 10:56 AM | | | | | Surgic | PST | | | | | al | | | | + +--------+ + + + +---+--------+ | | | | | Specia | | | l | | | Needs | | | Pt to | | | admit | | | 2 | | | days | | | prior | +---+--------+ + +--------+ + + + | CAPILLARY BLOOD | Routin | 09/12/2015 | Perirectal abscess | Results for this | | GLUCOSE (NO CHG), | e | 6:38 AM | | procedure are in the | | POC | | PST | | results section. | + +--------+ + + + | CBC (HEMOGRAM) ONLY | Urgent | 09/12/2015 | | Results for this | | | | 5:28 AM | | procedure are in the | | | | PST | | results section. | + +--------+ + + + | RENAL FUNCTION SET | Routin | 09/12/2015 | | Results for this | | (NA,K,CL,CO2,BUN,CRE | e | 5:28 AM | | procedure are in the | | AT,GLUC,CA,PHOS,ALB | | PST | | results section. | | ) | | | | | + +--------+ + + + | CBC ONLY | Urgent | 09/12/2015 | | Results for this | | | | 5:28 AM | | procedure are in the | | | | PST | | results section. | + +--------+ + + + | MAGNESIUM, PLASMA | Routin | 09/12/2015 | | Results for this | | | e | 5:28 AM | | procedure are in the | | | | PST | | results section. | + +--------+ + + + | CAPILLARY BLOOD | Routin | 09/12/2015 | Perirectal abscess | Results for this | | GLUCOSE (NO CHG), | e | 12:25 AM | | procedure are in the | | POC | | PST | | results section. | + +--------+ + + + | CAPILLARY BLOOD | Routin | 09/11/2015 | Perirectal abscess | Results for this | | GLUCOSE (NO CHG), | e | 6:22 PM | | procedure are in the | | POC | | PST | | results section. | + +--------+ + + + | CAPILLARY BLOOD | Routin | 09/11/2015 | Perirectal abscess | Results for this | | GLUCOSE (NO CHG), | e | 11:46 AM | | procedure are in the | | POC | | PST | | results section. | + +--------+ + + + | CAPILLARY BLOOD | Routin | 09/11/2015 | Perirectal abscess | Results for this | | GLUCOSE (NO CHG), | e | 6:18 AM | | procedure are in the | | POC | | PST | | results section. | + +--------+ + + + | CBC (HEMOGRAM) ONLY | Urgent | 09/11/2015 | | Results for this | | | | 4:48 AM | | procedure are in the | | | | PST | | results section. | + +--------+ + + + | CBC ONLY | Urgent | 09/11/2015 | | Results for this | | | | 4:48 AM | | procedure are in the | | | | PST | | results section. | + +--------+ + + + | APTT (ACT. PART. | Urgent | 09/10/2015 | | Results for this | | THROMBO TIME) | | 10:24 PM | | procedure are in the | | | | PST | | results section. | + +--------+ + + + | CAPILLARY BLOOD | Routin | 09/10/2015 | Perirectal abscess | Results for this | | GLUCOSE (NO CHG), | e | 10:16 PM | | procedure are in the | | POC | | PST | | results section. | + +--------+ + + + | CAPILLARY BLOOD | Routin | 09/10/2015 | Perirectal abscess | Results for this | | GLUCOSE (NO CHG), | e | 6:35 PM | | procedure are in the | | POC | | PST | | results section. | + +--------+ + + + | X-RAY CHEST 2 VIEW | Routin | 09/10/2015 | | Results for this | | | e | 5:36 PM | | procedure are in the | | | | PST | | results section. | + +--------+ + + + | VASC LAB PORTABLE | Routin | 09/10/2015 | | Results for this | | VENOUS DUPLEX LOWER | e | 3:13 PM | | procedure are in the | | EXTREMITY BILATERAL | | PST | | results section. | | COMPLETE | | | | | + +--------+ + + + | CAPILLARY BLOOD | Routin | 09/10/2015 | Perirectal abscess | Results for this | | GLUCOSE (NO CHG), | e | 1:24 PM | | procedure are in the | | POC | | PST | | results section. | + +--------+ + + + | CBC (HEMOGRAM) ONLY | Urgent | 09/10/2015 | | Results for this | | | | 12:55 PM | | procedure are in the | | | | PST | | results section. | + +--------+ + + + | INR | Urgent | 09/10/2015 | | Results for this | | | | 12:55 PM | | procedure are in the | | | | PST | | results section. | + +--------+ + + + | PREALBUMIN, SERUM | Routin | 09/10/2015 | | Results for this | | | e | 12:55 PM | | procedure are in the | | | | PST | | results section. | + +--------+ + + + | COMPLETE METABOLIC | Routin | 09/10/2015 | | Results for this | | SET | e | 12:55 PM | | procedure are in the | | (NA,K,CL,CO2,BUN,CRE | | PST | | results section. | | AT,GLUC,CA,AST,ALT,B | | | | | | INDIGO TOTAL,ALK | | | | | | PHOS,ALB,PROT TOTAL) | | | | | + +--------+ + + + | C-REACTIVE PROTEIN | Routin | 09/10/2015 | | Results for this | | | e | 12:55 PM | | procedure are in the | | | | PST | | results section. | + +--------+ + + + | CBC ONLY | Urgent | 09/10/2015 | | Results for this | | | | 12:55 PM | | procedure are in the | | | | PST | | results section. | + +--------+ + + + | PHOSPHORUS, PLASMA | Routin | 09/10/2015 | | Results for this | | | e | 12:55 PM | | procedure are in the | | | | PST | | results section. | + +--------+ + + + | HEMOGLOBIN A1C, | Routin | 09/10/2015 | | Results for this | | BLOOD | e | 12:55 PM | | procedure are in the | | | | PST | | results section. | + +--------+ + + + | MAGNESIUM, PLASMA | Routin | 09/10/2015 | | Results for this | | | e | 12:55 PM | | procedure are in the | | | | PST | | results section. | + +--------+ + + + | 12 LEAD ECG | Routin | 09/10/2015 | | Results for this | | | e | 12:39 PM | | procedure are in the | | | | PST | | results section. | + +--------+ + + + documented in this encounter Results OPERATION RECORD (10/07/2015 2:59 PM PST) + + | Transcriptions | + + | Cinthia Oro MD - 09/12/2015 1:34 PM PST Date of Service: 09/12/2015 Attending | | Surgeon: Cinthia Oro MD Bridge Design Engineer(s): Kenny Quintero M.D. | | Preoperative Diagnoses: 1. Severe anal pain.2. Possible pilonidal | | abscess.3. Possible perineal hidradenitis suppurativa.4. Morbid obesity. 5. Poorly | | controlled diabetes.Postoperative Diagnoses: 1. Severe anal pain.2. Pilonidal sinus | | with left pilonidal abscess.3. Infected, left greater than right, perianal | | hidradenitis.4. Morbid obesity. 5. Poorly controlled diabetes.Procedure: 1. Anorectal | | exam under anesthesia.2. Drainage of pilonidal abscess.3. Drainage of extensive infected | | perianal hidradenitis.4. Placement of 4 setons: 1 seton into the pilonidal abscess | | and the other 3 setons into the right hidradenitis suppurative.Anesthesia: General | | endotracheal.Iv Fluids: 200 mL.Estimated Blood Loss: Minimal.Specimens: | | None.Indications: The patient is a 34-year-old morbidly obese diabetic male smoker, who | | has complained of intermittent low back swelling, pain, and drainage since about 2005. | | That had never been operated on. I saw him on September 10, 2015, at the request of his | | local surgeon, Dr. Devan Butler. When I saw him, it was not clear that he had an | | obvious abscess, but there were multiple openings in the posterior anal margin and in | | the left superior buttock that were draining. He had severe pain. We admitted him for | | pain control on September 10. We improve his glycemic control. He comes today for an | | anorectal exam under anesthesia.Findings: There were numerous openings around the | | posterior anal margin. There was pus coming from the left posterior anal margin. There | | was also a pilonidal sinus in the midline and more cephalad. That sinus communicated | | with a left posterior abscess. This looked like a pilonidal cyst with an associated | | abscess and partially draining infected hidradenitis suppurativa. We cannulated all the | | tunnels and either opened them/curetted out the wounds or we placed setons if they were | | longer tracts. We ended up placing 3 setons on the right and 1 seton between the | | pilonidal sinus and the abscess.Description Of Procedure: After the patient, site, and | | procedure were identified, the patient was brought back to the operating room. General | | anesthesia was induced without incident. The patient was moved into a prone jackknife | | position. We made sure that all bony prominences were protected. There was no pressure | | on the genitalia. The arms were not hyperabducted, and the neck was not hyperextended. | | The patient was prepped and draped in the usual sterile fashion. Note, due to the | | nature of the case, the patient did not require antibiotic prophylaxis. On perineal | | exam, we found quiescent hidradenitis of both thighs. He had significant hidradenitis | | suppurativa of the posterior anal margin. The openings were filled with sebum or hair. | | We removed the sebum and hair. The ones on the left had had some pus coming out of | | them. There was also a more cephalad midline sinus which was consistent with pilonidal | | sinus. That communicated with a more left posterior abscess. On digital rectal exam, he | | had no mass or abscess. On anoscopy, with the Hill-Carter retractor, he had no | | internal openings. We injected some of the openings close to the anal verge, but there | | was no extravasation within the anal canal.Through the long tracts, we placed setons | | (small vessel loops) as follows. We cannulated the tracts with a [facility] | | probe, placed an A-line wire down the tract, tied a 2-0 silk to the A-line wire, and | | pulled that silk through the tract. We tied a small vessel loops to the 2-0 silk and | | pulled that through the tract. We tied the ends of the vessel loop together with 0 silk | | ties. We placed a seton between the pilonidal sinus and its abscess and within 3 long | | tunnels in the right anal margin. We opened up the more superficial shorter tracts, and | | excised skin edges, so they will not heal prematurely. We curetted the base of those | | tracts.We re-examined his perineum. We had opened up all the significant tunneling. We | | had excellent hemostasis. There was no more purulence to drain. We cleaned up | | Betadine from the perineal wound. We injected 0.25% Marcaine with epinephrine around | | the perineal wounds for postop pain control. The patient was returned to the supine | | position, was extubated, and was transferred to the PACU. I was present and scrubbed for | | the entire procedure.LEÓN Buchanan/MODLDD: 09/12/2015 12:38:49DT: 09/12/2015 | | 13:34:17Job #: [id number] | | | |We placed a seton between the pilonidal sinus and its abscess and within 3 long tunnels in the right anal margin. We opened up the more superficial shorter tracts, and excised skin e dges, so they will not heal prematurely. | | We curetted the base of those tracts. | | | |We re-examined his perineum. We had opened up all the significant tunneling. We had excel lent hemostasis. There was no more purulence to drain. | | | |We cleaned up Betadine from the perineal wound. We injected 0.25% Marcaine with epinephrin e around the perineal wounds for postop pain control. The patient was returned to the supin e position, was extubated, and was transferred to the PACU. | | | |I was present and scrubbed for the entire procedure. | | | | | | | |Cinthia Oro MD | |[facility] | | | | | | /[id number] | + + CAPILLARY BLOOD GLUCOSE (NO CHG), POC (09/13/2015 8:00 AM PST) + +---------+ + + + | Component | Value | Ref Range | Performed | Pathologist | | | | | At | Signature | + +---------+ + + + | BLOOD | 135 (H) | 60 - 99 mg/dL | [facility] | | | GLUCOSE, | | | [facility] | | | POC | | | [facility] | | | | | | [facility] | | | | | | TESTS | | + +---------+ + + + + + | Specimen | + + | | + + + + + + + | Performing | Address | City/State/Zipcode | Phone Number | | Organization | | | | + + + + + | [facility] | [address] | [place], [place] | | | [facility] | [address] | [phone] | | | TESTS | | | | + + + + + CAPILLARY BLOOD GLUCOSE (NO CHG), POC (09/13/2015 7:12 AM PST) + +---------+ + + + | Component | Value | Ref Range | Performed | Pathologist | | | | | At | Signature | + +---------+ + + + | BLOOD | 196 (H) | 60 - 99 mg/dL | [facility] | | | GLU[facility]SE, | | | [facility] | | | POC | | | [facility] | | | | | | [facility] | | | | | | TESTS | | + +---------+ + + + + + | Specimen | + + | | + + + + + + + | Performing | Address | City/State/Zipcode | Phone Number | | Organization | | | | + + + + + | [facility] | [address] | [place], [place] | | | [facility] | [address] | [phone] | | | TESTS | | | | + + + + + CBC (HEMOGRAM) ONLY (09/13/2015 5:17 AM PST) + + + + + + | Component | Value | Ref Range | Performed | Pathologist | | | | | At | Signature | + + + + + + | WHITE CELL | 10.82 | 4.40 - 11.00 | [facility] | | | COUNT | | K/cu mm | LABORATORY | | | | | | SERVICES, | | | | | | CORE | | + + + + + + | RED CELL | 4.28 (L) | 4.50 - 6.00 | [facility] | | | COUNT | | M/cu mm | LABORATORY | | | | | | SERVICES, | | | | | | CORE | | + + + + + + | HEMOGLOBIN | 13.7 | 13.5 - 17.5 | [facility] | | | | | g/dL | LABORATORY | | | | | | SERVICES, | | | | | | CORE | | + + + + + + | HEMATOCRIT | 40.0 (L) | 41.0 - 53.0 % | [facility] | | | | | | LABORATORY | | | | | | SERVICES, | | | | | | CORE | | + + + + + + | MCV | 93.5 | 80.0 - 96.0 fL | [facility] | | | | | | LABORATORY | | | | | | SERVICES, | | | | | | CORE | | + + + + + + | MCHC | 34.3 | 33.0 - 35.5 | [facility] | | | | | g/dL | LABORATORY | | | | | | SERVICES, | | | | | | CORE | | + + + + + + | RDW SD | 42.2 | 35.1 - 46.3 fL | [facility] | | | | | | LABORATORY | | | | | | SERVICES, | | | | | | CORE | | + + + + + + | PLATELET | 215 | 150 - 400 K/cu | [facility] | | | COUNT | | mm | LABORATORY | | | | | | SERVICES, | | | | | | CORE | | + + + + + + | MPV | 10.1 | 9.7 - 12.3 fL | [facility] | | | | | | LABORATORY | | | | | | SERVICES, | | | | | | CORE | | + + + + + + | NRBC% | 0.0 | 0.0 - 0.3 % | [facility] | | | | | | LABORATORY | | | | | | SERVICES, | | | | | | CORE | | + + + + + + | NRBC# | 0.00 | 0.00 - 0.02 | [facility] | | | | | K/cu mm | LABORATORY | | | | | | SERVICES, | | | | | | CORE | | + + + + + + + + | Specimen | + + | Blood | + + + + + + + | Performing | Address | City/State/Zipcode | Phone Number | | Organization | | | | + + + + + | [facility] | [address] | [place] [address] | | | SERVICES, CORE | [address] | | | + + + + + CAPILLARY BLOOD GLUCOSE (NO CHG), POC (09/12/2015 10:09 PM PST) + +---------+ + + + | Component | Value | Ref Range | Performed | Pathologist | | | | | At | Signature | + +---------+ + + + | BLOOD | 104 (H) | 60 - 99 mg/dL | [facility] - | | | GLUCOSE, | | | [place] | | | POC | | | [facility] | | | | | | OF CARE | | | | | | TESTS | | + +---------+ + + + + + | Specimen | + + | | + + + + + + + | Performing | Address | City/State/Zipcode | Phone Number | | Organization | | | | + + + + + | [facility] | [address] | [place], [place] | | | [facility] | [address] | [address] | | | TESTS | | | | + + + + + CAPILLARY BLOOD GLUCOSE (NO CHG), POC (09/12/2015 6:32 PM PST) + +---------+ + + + | Component | Value | Ref Range | Performed | Pathologist | | | | | At | Signature | + +---------+ + + + | BLOOD | 160 (H) | 60 - 99 mg/dL | [facility] - | | | GLUCOSE, | | | [facility] | | | POC | | | [facility] | | | | | | OF CARE | | | | | | TESTS | | + +---------+ + + + + + | Specimen | + + | | + + + + + + + | Performing | Address | City/State/Zipcode | Phone Number | | Organization | | | | + + + + + | [facility] | [address] | [place], [place] | | | [facility] | [address] | [address] | | | TESTS | | | | + + + + + CAPILLARY BLOOD GLUCOSE (NO CHG), POC (09/12/2015 1:06 PM PST) + +---------+ + + + | Component | Value | Ref Range | Performed | Pathologist | | | | | At | Signature | + +---------+ + + + | BLOOD | 146 (H) | 60 - 99 mg/dL | [facility] - | | | GLUCOSE, | | | [facility] | | | POC | | | [facility] | | | | | | OF CARE | | | | | | TESTS | | + +---------+ + + + + + | Specimen | + + | | + + + + + + + | Performing | Address | City/State/Zipcode | Phone Number | | Organization | | | | + + + + + | [facility] | [address] | [place], [place] | | | [facility] | [address] | [address] | | | TESTS | | | | + + + + + CAPILLARY BLOOD GLUCOSE (NO CHG), POC (09/12/2015 6:38 AM PST) + +---------+ + + + | Component | Value | Ref Range | Performed | Pathologist | | | | | At | Signature | + +---------+ + + + | BLOOD | 136 (H) | 60 - 99 mg/dL | [facility] - | | | GLUCOSE, | | | [facility] | | | POC | | | [facility] | | | | | | OF CARE | | | | | | TESTS | | + +---------+ + + + + + | Specimen | + + | | + + + + + + + | Performing | Address | City/State/Zipcode | Phone Number | | Organization | | | | + + + + + | [facility] | [address] | [place], [place] | | | [facility] | [address] | [address] | | | TESTS | | | | + + + + + CBC (HEMOGRAM) ONLY (09/12/2015 5:28 AM PST) + + + + + + | Component | Value | Ref Range | Performed | Pathologist | | | | | At | Signature | + + + + + + | WHITE CELL | 8.66 | 4.40 - 11.00 | [facility] | | | COUNT | | K/cu mm | LABORATORY | | | | | | SERVICES, | | | | | | CORE | | + + + + + + | RED CELL | 4.14 (L) | 4.50 - 6.00 | [facility] | | | COUNT | | M/cu mm | LABORATORY | | | | | | SERVICES, | | | | | | CORE | | + + + + + + | HEMOGLOBIN | 13.3 (L) | 13.5 - 17.5 | [facility] | | | | | g/dL | LABORATORY | | | | | | SERVICES, | | | | | | CORE | | + + + + + + | HEMATOCRIT | 38.4 (L) | 41.0 - 53.0 % | [facility] | | | | | | LABORATORY | | | | | | SERVICES, | | | | | | CORE | | + + + + + + | MCV | 92.8 | 80.0 - 96.0 fL | [facility] | | | | | | LABORATORY | | | | | | SERVICES, | | | | | | CORE | | + + + + + + | MCHC | 34.6 | 33.0 - 35.5 | [facility] | | | | | g/dL | LABORATORY | | | | | | SERVICES, | | | | | | CORE | | + + + + + + | RDW SD | 41.4 | 35.1 - 46.3 fL | [facility] | | | | | | LABORATORY | | | | | | SERVICES, | | | | | | CORE | | + + + + + + | PLATELET | 208 | 150 - 400 K/cu | [facility] | | | COUNT | | mm | LABORATORY | | | | | | SERVICES, | | | | | | CORE | | + + + + + + | MPV | 10.0 | 9.7 - 12.3 fL | [facility] | | | | | | LABORATORY | | | | | | SERVICES, | | | | | | CORE | | + + + + + + | NRBC% | 0.0 | 0.0 - 0.3 % | [facility] | | | | | | LABORATORY | | | | | | SERVICES, | | | | | | CORE | | + + + + + + | NRBC# | 0.00 | 0.00 - 0.02 | [facility] | | | | | K/cu mm | LABORATORY | | | | | | SERVICES, | | | | | | CORE | | + + + + + + + + | Specimen | + + | Blood | + + + + + + + | Performing | Address | City/State/Zipcode | Phone Number | | Organization | | | | + + + + + | [facility] | [address] | [place] [address] | | | SERVICES, CORE | [address] | | | + + + + + RENAL FUNCTION SET (NA,K,CL,CO2,BUN,CREAT,GLUC,CA,PHOS,ALB ) (09/12/2015 5:28 AM PST) + + + + + + | Component | Value | Ref Range | Performed | Pathologist | | | | | At | Signature | + + + + + + | GLUCOSE, | 137 (H) | 60 - 99 mg/dL | [facility] | | | PLASMA | | | LABORATORY | | | (LAB) | | | SERVICES, | | | | | | CORE | | + + + + + + | BUN, PLASMA | 14 | 6 - 20 mg/dL | [facility] | | | (LAB) | | | LABORATORY | | | | | | SERVICES, | | | | | | CORE | | + + + + + + | CREATININE | 0.68 (L) | 0.70 - 1.30 | [facility] | | | PLASMA | | mg/dL | LABORATORY | | | (LAB) | | | SERVICES, | | | | | | CORE | | + + + + + + | EGFR | >60 | >60 mL/min | [facility] | | | - | | | LABORATORY | | | RUSSIAN | | | SERVICES, | | | | | | CORE | | + + + + + + | EGFR NON | >60 | >60 mL/min | [facility] | | | -LEEANN | | | LABORATORY | | | RICAN | | | SERVICES, | | | | | | CORE | | + + + + + + | SODIUM, | 137 | 136 - 145 | [facility] | | | PLASMA | | mmol/L | LABORATORY | | | (LAB) | | | SERVICES, | | | | | | CORE | | + + + + + + | POTASSIUM, | 4.0 | 3.4 - 5.0 | [facility] | | | PLASMA | | mmol/L | LABORATORY | | | (LAB) | | | SERVICES, | | | | | | CORE | | + + + + + + | CHLORIDE, | 103 | 97 - 108 mmol/L | [facility] | | | PLASMA | | | LABORATORY | | | (LAB) | | | SERVICES, | | | | | | CORE | | + + + + + + | TOTAL CO2, | 27 | 21 - 32 mmol/L | [facility] | | | PLASMA | | | LABORATORY | | | (LAB) | | | SERVICES, | | | | | | CORE | | + + + + + + | CALCIUM, | 8.7 | 8.6 - 10.2 | [facility] | | | PLASMA | | mg/dL | LABORATORY | | | (LAB) | | | SERVICES, | | | | | | CORE | | + + + + + + | ALBUMIN, | 3.0 (L) | 3.5 - 4.7 g/dL | [facility] | | | PLASMA | | | LABORATORY | | | (LAB) | | | SERVICES, | | | | | | CORE | | + + + + + + | PHOSPHORUS, | 4.1 | 2.4 - 4.7 mg/dL | [facility] | | | PLASMA | | | LABORATORY | | | (LAB) | | | SERVICES, | | | | | | CORE | | + + + + + + | POTASSIUM | No Hemo | | [facility] | | | CMNT | | | LABORATORY | | | | | | SERVICES, | | | | | | CORE | | + + + + + + | ANION GAP | 7 | mmol/L | [facility] | | | | | | LABORATORY | | | | | | SERVICES, | | | | | | CORE | | + + + + + + | ANION | 9 | 4 - 11 mmol/L | [facility] | | | GAP(ALB | | | LABORATORY | | | CORRECTED) | | | SERVICES, | | | | | | CORE | | + + + + + + + + | Specimen | + + | Blood | + + + + + | Narrative | Performed At | + + + | GFR is estimated using the MDRD equation recommended by the | [facility] | | National Kidney Disease Education Program. Estimated GFR | LABORATORY | | Interpretive Information: <60 mL/min/1.73 sq | SERVICES, CORE | | m Chronic Kidney Disease <15 mL/min/1.73 | | | sq m Kidney Failure Estimated GFR greater | | | that 60 mL/min/1.73 sq m is of limited clinical value. The MDRD | | | equation is not valid in the following situations: - Patients under | | | 18 years of age - Severe malnutrition or obesity - Vegetarian diet | | | - Rapidly changing kidney function | | + + + + + + + + | Performing | Address | City/State/Zipcode | Phone Number | | Organization | | | | + + + + + | [facility] | [address] | [place] [address] | | | BRITTANY, OLESYA | [address] | | | + + + + + MAGNESIUM, PLASMA (09/12/2015 5:28 AM PST) + +---------+ + + + | Component | Value | Ref Range | Performed | Pathologist | | | | | At | Signature | + +---------+ + + + | MAGNESIUM,P | 1.7 (L) | 1.8 - 2.5 mg/dL | [facility] | | | LASMA | | | LABORATORY | | | | | | SERVICES, | | | | | | [facility] | | + +---------+ + + + + + | Specimen | + + | Blood | + + + + + + + | Performing | Address | City/State/Zipcode | Phone Number | | Organization | | | | + + + + + | [facility] | [address] | [place] [address] | | | SERVICES, CORE | [address] | | | + + + + + CAPILLARY BLOOD GLUCOSE (NO CHG), POC (09/12/2015 12:25 AM PST) + +---------+ + + + | Component | Value | Ref Range | Performed | Pathologist | | | | | At | Signature | + +---------+ + + + | BLOOD | 124 (H) | 60 - 99 mg/dL | [facility] - | | | GLUCOSE, | | | [facility] | | | POC | | | [facility] | | | | | | OF CARE | | | | | | TESTS | | + +---------+ + + + + + | Specimen | + + | | + + + + + + + | Performing | Address | City/State/Zipcode | Phone Number | | Organization | | | | + + + + + | [facility] | [address] | [place], [place] | | | [facility] | [address] | [address] | | | TESTS | | | | + + + + + CAPILLARY BLOOD GLUCOSE (NO CHG), POC (09/11/2015 6:22 PM PST) + +---------+ + + + | Component | Value | Ref Range | Performed | Pathologist | | | | | At | Signature | + +---------+ + + + | BLOOD | 134 (H) | 60 - 99 mg/dL | [facility] - | | | GLUCOSE, | | | [facility] | | | POC | | | [facility] | | | | | | OF CARE | | | | | | TESTS | | + +---------+ + + + + + | Specimen | + + | | + + + + + + + | Performing | Address | City/State/Zipcode | Phone Number | | Organization | | | | + + + + + | [facility] | [address] | [place], [place] | | | [facility] | [address] | [address] | | | TESTS | | | | + + + + + CAPILLARY BLOOD GLUCOSE (NO CHG) POC (09/11/2015 11:46 AM PST) + +---------+ + + + | Component | Value | Ref Range | Performed | Pathologist | | | | | At | Signature | + +---------+ + + + | BLOOD | 133 (H) | 60 - 99 mg/dL | [facility] - | | | GLUCOSE, | | | [facility] | | | POC | | | [facility] | | | | | | OF CARE | | | | | | TESTS | | + +---------+ + + + + + | Specimen | + + | | + + + + + + + | Performing | Address | City/State/Zipcode | Phone Number | | Organization | | | | + + + + + | [facility] | [address] | [place], [place] | | | [facility] | [address] | [address] | | | TESTS | | | | + + + + + CAPILLARY BLOOD GLUCOSE (NO CHG), POC (09/11/2015 6:18 AM PST) + +---------+ + + + | Component | Value | Ref Range | Performed | Pathologist | | | | | At | Signature | + +---------+ + + + | BLOOD | 156 (H) | 60 - 99 mg/dL | [facility] - | | | GLUCOSE, | | | [facility] | | | POC | | | [facility] | | | | | | OF CARE | | | | | | TESTS | | + +---------+ + + + + + | Specimen | + + | | + + + + + + + | Performing | Address | City/State/Zipcode | Phone Number | | Organization | | | | + + + + + | [facility] | [address] | [place], [place] | | | [facility] | [address] | [address] | | | TESTS | | | | + + + + + CBC (HEMOGRAM) ONLY (09/11/2015 4:48 AM PST) + + + + + + | Component | Value | Ref Range | Performed | Pathologist | | | | | At | Signature | + + + + + + | WHITE CELL | 10.44 | 4.40 - 11.00 | [facility] | | | COUNT | | K/cu mm | LABORATORY | | | | | | SERVICES, | | | | | | CORE | | + + + + + + | RED CELL | 4.10 (L) | 4.50 - 6.00 | [facility] | | | COUNT | | M/cu mm | LABORATORY | | | | | | SERVICES, | | | | | | CORE | | + + + + + + | HEMOGLOBIN | 13.2 (L) | 13.5 - 17.5 | [facility] | | | | | g/dL | LABORATORY | | | | | | SERVICES, | | | | | | CORE | | + + + + + + | HEMATOCRIT | 38.8 (L) | 41.0 - 53.0 % | [facility] | | | | | | LABORATORY | | | | | | SERVICES, | | | | | | CORE | | + + + + + + | MCV | 94.6 | 80.0 - 96.0 fL | [facility] | | | | | | LABORATORY | | | | | | SERVICES, | | | | | | CORE | | + + + + + + | MCHC | 34.0 | 33.0 - 35.5 | [facility] | | | | | g/dL | LABORATORY | | | | | | SERVICES, | | | | | | CORE | | + + + + + + | RDW SD | 42.4 | 35.1 - 46.3 fL | [facility] | | | | | | LABORATORY | | | | | | SERVICES, | | | | | | CORE | | + + + + + + | PLATELET | 197 | 150 - 400 K/cu | [facility] | | | COUNT | | mm | LABORATORY | | | | | | SERVICES, | | | | | | CORE | | + + + + + + | MPV | 10.0 | 9.7 - 12.3 fL | [facility] | | | | | | LABORATORY | | | | | | SERVICES, | | | | | | CORE | | + + + + + + | NRBC% | 0.0 | 0.0 - 0.3 % | [facility] | | | | | | LABORATORY | | | | | | SERVICES, | | | | | | CORE | | + + + + + + | NRBC# | 0.00 | 0.00 - 0.02 | [facility] | | | | | K/cu mm | LABORATORY | | | | | | SERVICES, | | | | | | CORE | | + + + + + + + + | Specimen | + + | Blood | + + + + + + + | Performing | Address | City/State/Zipcode | Phone Number | | Organization | | | | + + + + + | [facility] | [address] | [place] [address] | | | SERVICES, CORE | [address] | | | + + + + + APTT (ACT. PART. THROMBO TIME) (09/10/2015 10:24 PM PST) + +-------+ + + + | Component | Value | Ref Range | Performed | Pathologist | | | | | At | Signature | + +-------+ + + + | APTT | 32.6 | 26.0 - 36.0 | [facility] | | | | | seconds | LABORATORY | | | | | | SERVICES, | | | | | | CORE | | + +-------+ + + + + + | Specimen | + + | Blood | + + + + + | Narrative | Performed At | + + + | APTT Therapeutic | [facility] | | Range: (75 - 120) sec | LABORATORY | | Heparin levels of 0.35 - 0.7 U/mL | [facility] | + + + + + + + + | Performing | Address | City/State/Zipcode | Phone Number | | Organization | | | | + + + + + | [facility] | [address] | [place] [address] | | | [facility] | [address] | | | + + + + + CAPILLARY BLOOD GLUCOSE (NO CHG), POC (09/10/2015 10:16 PM PST) + +---------+ + + + | Component | Value | Ref Range | Performed | Pathologist | | | | | At | Signature | + +---------+ + + + | BLOOD | 142 (H) | 60 - 99 mg/dL | [facility] - | | | GLUCOSE, | | | [facility] | | | POC | | | [facility] | | | | | | OF CARE | | | | | | TESTS | | + +---------+ + + + + + | Specimen | + + | | + + + + + + + | Performing | Address | City/State/Zipcode | Phone Number | | Organization | | | | + + + + + | [facility] | [address] | [place], [place] | | | [facility] | [address] | [address] | | | TESTS | | | | + + + + + CAPILLARY BLOOD GLUCOSE (NO CHG), POC (09/10/2015 6:35 PM PST) + +---------+ + + + | Component | Value | Ref Range | Performed | Pathologist | | | | | At | Signature | + +---------+ + + + | BLOOD | 147 (H) | 60 - 99 mg/dL | [facility] - | | | GLUCOSE, | | | [facility] | | | POC | | | [facility] | | | | | | OF CARE | | | | | | TESTS | | + +---------+ + + + + + | Specimen | + + | | + + + + + + + | Performing | Address | City/State/Zipcode | Phone Number | | Organization | | | | + + + + + | [facility] | [address] | [place], [place] | | | [facility] | [address] | [address] | | | TESTS | | | | + + + + + X-RAY CHEST 2 VIEW (09/10/2015 5:36 PM PST) + + + + + + | Component | Value | Ref Range | Performed | Pathologist | | | | | At | Signature | + + + + + + | CHEST, 2 | EXAM: CHEST 2 VIEWS | | | | | VIEWS [place] | 09/10/15 17:36:00 | | | | | STEREO | HISTORY: Preop | | | | | | (perirectal abscess | | | | | | surgery) COMPARISON: | | | | | | None FINDINGS: The | | | | | | cardiomediastinal | | | | | | contour is normal. The | | | | | | lungs are clear. There | | | | | | is nopleural effusion. | | | | | | There is no pulmonary | | | | | | edema or pneumothorax. | | | | | | The bones areintact. | | | | | | IMPRESSION: Clear lungs | | | | | | Attending Radiologists: | | | | | | YAW SHEIKH, | | | | | | MDAuthor: ABEBA | | | | | | MD TALON I | | | | | | personally reviewed the | | | | | | images and, if | | | | | | necessary, edited the | | | | | | report. I agreewith the | | | | | | report as now presented. | | | | | | | | | | | | Final/Electronically | | | | | | signed / YAW Hernandez | | | | | | AGUILAR 09/11/2015 9:00 | | | | | | AM | | | | + + + + + + + + | Specimen | + + | | + + + +---------+ + + | Performing | Address | City/State/Zipcode | Phone Number | | Organization | | | | + +---------+ + + | [facility] DEPARTMENT OF | | | | | RADIOLOGY | | | | + +---------+ + + VASC LAB PORTABLE VENOUS DUPLEX LOWER EXTREMITY BILATERAL COMPLETE (09/10/2015 3:13 PM PST ) + + + + + + | Component | Value | Ref Range | Performed | Pathologist | | | | | At | Signature | + + + + + + | VASC LAB | Bilateral: The duplex | | | | | PORTABLE | scanner was used to | | | | | VENOUS | examine the deep and | | | | | DUPLEX | superficialveins of the | | | | | LOWER | right and left lower | | | | | EXTREMITY | extremities. There | | | | | BILATERAL | is non-occlusivethrombus | | | | | COMPLETE | in the left distal | | | | | | femoral and popliteal | | | | | | veins. All other veins | | | | | | arepatent bilaterally | | | | | | with normal flows and | | | | | | responses to | | | | | | augmentation | | | | | | andcompression maneuvers | | | | | | and no thrombus is | | | | | | noted. Conclusions: | | | | | | Abnormal | | | | | | examination.RIGHT: No | | | | | | evidence of deep or | | | | | | superficial vein | | | | | | thrombosis in the right | | | | | | leg.LEFT: In the left | | | | | | leg, there is deep | | | | | | vein thrombosis in the | | | | | | distal femoral | | | | | | andpopliteal | | | | | | veins. There is no | | | | | | evidence of superficial | | | | | | vein thrombosis in | | | | | | theleft leg. Attending | | | | | | Radiologists: SYLVIE | | | | | | RICHI HILLSuthor: | | | | | | SYLVIE HILLS MD I | | | | | | have personally viewed | | | | | | this procedure/exam, | | | | | | reviewed this report, | | | | | | and madechanges to it | | | | | | where appropriate. | | | | | | Final/Electronically | | | | | | signed / SYLVIE | | | | | | JEANA 09/10/2015 15:57 | | | | | | PM | | | | + + + + + + + + | Specimen | + + | | + + + +---------+ + + | Performing | Address | City/State/Zipcode | Phone Number | | Organization | | | | + +---------+ + + | [facility] DEPARTMENT OF | | | | | RADIOLOGY | | | | + +---------+ + + CAPILLARY BLOOD GLUCOSE (NO CHG), POC (09/10/2015 1:24 PM PST) + +-------+ + + + | Component | Value | Ref Range | Performed | Pathologist | | | | | At | Signature | + +-------+ + + + | BLOOD | 84 | 60 - 99 mg/dL | [facility] - | | | GLUCOSE, | | | [facility] | | | POC | | | [facility] | | | | | | OF CARE | | | | | | TESTS | | + +-------+ + + + + + | Specimen | + + | | + + + + + + + | Performing | Address | City/State/Zipcode | Phone Number | | Organization | | | | + + + + + | [facility] | [address] | [place], [place] | | | [facility] | [address] | [address] | | | TESTS | | | | + + + + + CBC (HEMOGRAM) ONLY (09/10/2015 12:55 PM PST) + +-------+ + + + | Component | Value | Ref Range | Performed | Pathologist | | | | | At | Signature | + +-------+ + + + | WHITE CELL | 8.98 | 4.40 - 11.00 | [facility] | | | COUNT | | K/cu mm | LABORATORY | | | | | | SERVICES, | | | | | | CORE | | + +-------+ + + + | RED CELL | 4.52 | 4.50 - 6.00 | [facility] | | | COUNT | | M/cu mm | LABORATORY | | | | | | SERVICES, | | | | | | CORE | | + +-------+ + + + | HEMOGLOBIN | 14.8 | 13.5 - 17.5 | [facility] | | | | | g/dL | LABORATORY | | | | | | SERVICES, | | | | | | CORE | | + +-------+ + + + | HEMATOCRIT | 42.4 | 41.0 - 53.0 % | [facility] | | | | | | LABORATORY | | | | | | SERVICES, | | | | | | CORE | | + +-------+ + + + | MCV | 93.8 | 80.0 - 96.0 fL | [facility] | | | | | | LABORATORY | | | | | | SERVICES, | | | | | | CORE | | + +-------+ + + + | MCHC | 34.9 | 33.0 - 35.5 | [facility] | | | | | g/dL | LABORATORY | | | | | | SERVICES, | | | | | | CORE | | + +-------+ + + + | RDW SD | 42.5 | 35.1 - 46.3 fL | [facility] | | | | | | LABORATORY | | | | | | SERVICES, | | | | | | CORE | | + +-------+ + + + | PLATELET | 228 | 150 - 400 K/cu | [facility] | | | COUNT | | mm | LABORATORY | | | | | | SERVICES, | | | | | | CORE | | + +-------+ + + + | MPV | 10.1 | 9.7 - 12.3 fL | [facility] | | | | | | LABORATORY | | | | | | SERVICES, | | | | | | CORE | | + +-------+ + + + | NRBC% | 0.0 | 0.0 - 0.3 % | [facility] | | | | | | LABORATORY | | | | | | SERVICES, | | | | | | CORE | | + +-------+ + + + | NRBC# | 0.00 | 0.00 - 0.02 | [facility] | | | | | K/cu mm | LABORATORY | | | | | | SERVICES, | | | | | | CORE | | + +-------+ + + + + + | Specimen | + + | Blood | + + + + + + + | Performing | Address | City/State/Zipcode | Phone Number | | Organization | | | | + + + + + | [facility] | [address] | [place] [address] | | | SERVICES, CORE | [address] | | | + + + + + C-REACTIVE PROTEIN (09/10/2015 12:55 PM PST) + +-------+ + + + | Component | Value | Ref Range | Performed | Pathologist | | | | | At | Signature | + +-------+ + + + | C-REACTIVE | 9.9 | <10.0 mg/L | [facility] | | | PROTEIN | | | LABORATORY | | | | | | SERVICES, | | | | | | CORE | | + +-------+ + + + + + | Specimen | + + | Blood | + + + + + | Narrative | Performed At | + + + | New method, new reference range and new reporting units as of | [facility] | | 01/24/2014. | LABORATORY | | | [place] SOTO | + + + + + + + + | Performing | Address | City/State/Zipcode | Phone Number | | Organization | | | | + + + + + | [facility] | [address] | [place] [address] | | | SERVICES, CORE | [address] | | | + + + + + PREALBUMIN, SERUM (09/10/2015 12:55 PM PST) + +-------+ + + + | Component | Value | Ref Range | Performed | Pathologist | | | | | At | Signature | + +-------+ + + + | PREALBUMIN | 19.0 | 17.0 - 42.0 | [facility] | | | | | mg/dL | [facility] | | | | | | [place] | | + +-------+ + + + + + | Specimen | + + | Blood - Blood | + + + + + + + | Performing | Address | City/State/Zipcode | Phone Number | | Organization | | | | + + + + + | [facility] | [id number] | [place], [place] [address] | | | [place] | | | | + + + + + HEMOGLOBIN A1C, BLOOD (09/10/2015 12:55 PM PST) + + + + + + | Component | Value | Ref Range | Performed | Pathologist | | | | | At | Signature | + + + + + + | HEMOGLOBIN | 10.5 (H)Comment: Hbg A1c | <5.7 % | [facility] | | | A1C | Interpretive | | LABORATORY | | | | Information: | | SERVICES, | | | | <5.7% - | | SPECIAL IMM | | | | Normal 5.7-6.4% - | | + COAG | | | | Consistent with | | | | | | pre-diabetes | | | | | | >6.4% - Consistent with | | | | | | diabetes | | | | + + + + + + + + | Specimen | + + | Blood | + + + + + + + | Performing | Address | City/State/Zipcode | Phone Number | | Organization | | | | + + + + + | [facility] | [address] | [place] [address] | | | SERVICES, SPECIAL | [address] | | | | IMM + COAG | | | | + + + + + INR (09/10/2015 12:55 PM PST) + +-------+ + + + | Component | Value | Ref Range | Performed | Pathologist | | | | | At | Signature | + +-------+ + + + | INR | 1.14 | 0.90 - 1.20 INR | [facility] | | | | | | LABORATORY | | | | | | SERVICES, | | | | | | CORE | | + +-------+ + + + + + | Specimen | + + | Blood | + + + + + | Narrative | Performed At | + + + | INR Therapeutic ranges for full anticoagulation: INR for | [facility] | | Venous Thromboembolism (2.0 - 3.0) INR INR | LABORATORY | | for most patients with mech. valves (2.5 - 3.5) INR | [facility], CORE | + + + + + + + + | Performing | Address | City/State/Zipcode | Phone Number | | Organization | | | | + + + + + | [facility] | [address] | [place] [address] | | | SERVICES, [place] | [address] | | | + + + + + PHOSPHORUS, PLASMA (09/10/2015 12:55 PM PST) + +-------+ + + + | Component | Value | Ref Range | Performed | Pathologist | | | | | At | Signature | + +-------+ + + + | PHOSPHORUS, | 3.7 | 2.4 - 4.7 mg/dL | [facility] | | | PLASMA | | | LABORATORY | | | (LAB) | | | SERVICES, | | | | | | CORE | | + +-------+ + + + + + | Specimen | + + | Blood | + + + + + + + | Performing | Address | City/State/Zipcode | Phone Number | | Organization | | | | + + + + + | [facility] | [address] | [place] [address] | | | SERVICES, CORE | [address] | | | + + + + + MAGNESIUM, PLASMA (09/10/2015 12:55 PM PST) + +---------+ + + + | Component | Value | Ref Range | Performed | Pathologist | | | | | At | Signature | + +---------+ + + + | MAGNESIUM,P | 1.4 (L) | 1.8 - 2.5 mg/dL | [facility] | | | LASMA | | | LABORATORY | | | | | | SERVICES, | | | | | | CORE | | + +---------+ + + + + + | Specimen | + + | Blood | + + + + + + + | Performing | Address | City/State/Zipcode | Phone Number | | Organization | | | | + + + + + | [facility] | [address] | [place] [address] | | | SERVICES, CORE | [address] | | | + + + + + COMPLETE METABOLIC SET (NA,K,CL,CO2,BUN,CREAT,GLUC,CA,AST,ALT,BILI TOTAL,ALK PHOS,ALB,PROT TOTAL) (09/10/2015 12:55 PM PST) + + + + + + | Component | Value | Ref Range | Performed | Pathologist | | | | | At | Signature | + + + + + + | GLUCOSE, | 100 (H) | 60 - 99 mg/dL | [facility] | | | PLASMA | | | LABORATORY | | | (LAB) | | | SERVICES, | | | | | | CORE | | + + + + + + | BUN, PLASMA | 7 | 6 - 20 mg/dL | [facility] | | | (LAB) | | | LABORATORY | | | | | | SERVICES, | | | | | | CORE | | + + + + + + | CREATININE | 0.66 (L) | 0.70 - 1.30 | [facility] | | | PLASMA | | mg/dL | LABORATORY | | | (LAB) | | | SERVICES, | | | | | | CORE | | + + + + + + | EGFR | >60 | >60 mL/min | [facility] | | | - | | | LABORATORY | | | RUSSIAN | | | SERVICES, | | | | | | CORE | | + + + + + + | EGFR NON | >60 | >60 mL/min | [facility] | | | -LEEANN | | | LABORATORY | | | RICAN | | | SERVICES, | | | | | | CORE | | + + + + + + | SODIUM, | 139 | 136 - 145 | [facility] | | | PLASMA | | mmol/L | LABORATORY | | | (LAB) | | | SERVICES, | | | | | | CORE | | + + + + + + | POTASSIUM, | 4.0 | 3.4 - 5.0 | [facility] | | | PLASMA | | mmol/L | LABORATORY | | | (LAB) | | | SERVICES, | | | | | | CORE | | + + + + + + | CHLORIDE, | 105 | 97 - 108 mmol/L | [facility] | | | PLASMA | | | LABORATORY | | | (LAB) | | | SERVICES, | | | | | | CORE | | + + + + + + | TOTAL CO2, | 27 | 21 - 32 mmol/L | [facility] | | | PLASMA | | | LABORATORY | | | (LAB) | | | SERVICES, | | | | | | CORE | | + + + + + + | CALCIUM, | 8.7 | 8.6 - 10.2 | [facility] | | | PLASMA | | mg/dL | LABORATORY | | | (LAB) | | | SERVICES, | | | | | | CORE | | + + + + + + | BILIRUBIN | 0.4 | 0.3 - 1.2 mg/dL | [facility] | | | TOTAL | | | LABORATORY | | | | | | SERVICES, | | | | | | CORE | | + + + + + + | TOTAL | 7.5 | 6.4 - 8.2 g/dL | [facility] | | | PROTEIN, | | | LABORATORY | | | PLASMA | | | SERVICES, | | | (LAB) | | | CORE | | + + + + + + | ALBUMIN, | 3.1 (L) | 3.5 - 4.7 g/dL | [facility] | | | PLASMA | | | LABORATORY | | | (LAB) | | | SERVICES, | | | | | | CORE | | + + + + + + | ALK PHOS | 74 | 53 - 128 U/L | [facility] | | | | | | LABORATORY | | | | | | SERVICES, | | | | | | CORE | | + + + + + + | AST(SGOT) | 26 | <=41 U/L | [facility] | | | | | | LABORATORY | | | | | | SERVICES, | | | | | | CORE | | + + + + + + | ALT (SGPT) | 35 | <=60 U/L | [facility] | | | | | | LABORATORY | | | | | | SERVICES, | | | | | | CORE | | + + + + + + | ANION | 9 | 4 - 11 mmol/L | [facility] | | | GAP(ALB | | | LABORATORY | | | CORRECTED) | | | SERVICES, | | | | | | CORE | | + + + + + + | POTASSIUM | No Hemo | | [facility] | | | CMNT | | | LABORATORY | | | | | | SERVICES, | | | | | | CORE | | + + + + + + | BILI T CMNT | No Hemo | | [facility] | | | | | | LABORATORY | | | | | | SERVICES, | | | | | | CORE | | + + + + + + | AST CMNT | No Hemo | | [facility] | | | | | | LABORATORY | | | | | | SERVICES, | | | | | | CORE | | + + + + + + | ANION GAP | 7 | mmol/L | [facility] | | | | | | LABORATORY | | | | | | SERVICES, | | | | | | CORE | | + + + + + + + + | Specimen | + + | Blood | + + + + + | Narrative | Performed At | + + + | GFR is estimated using the MDRD equation recommended by the | [facility] | | National Kidney Disease Education Program. Estimated GFR | LABORATORY | | Interpretive Information: <60 mL/min/1.73 sq | SERVICES, CORE | | m Chronic Kidney Disease <15 mL/min/1.73 | | | sq m Kidney Failure Estimated GFR greater | | | that 60 mL/min/1.73 sq m is of limited clinical value. The MDRD | | | equation is not valid in the following situations: - Patients under | | | 18 years of age - Severe malnutrition or obesity - Vegetarian diet | | | - Rapidly changing kidney function | | + + + + + + + + | Performing | Address | City/State/Zipcode | Phone Number | | Organization | | | | + + + + + | [facility] | [address] | [place] [address] | | | OLESYA SOTO | [address] | | | + + + + + 12 LEAD ECG (09/10/2015 12:39 PM PST) + + + + + + | Component | Value | Ref Range | Performed | Pathologist | | | | | At | Signature | + + + + + + | VENTRICULAR | 73 | bpm | [facility] | | | RATE | | | OF | | | | | | CARDIOLOGY | | + + + + + + | ATRIAL RATE | 73 | bpm | [facility] | | | | | | OF | | | | | | CARDIOLOGY | | + + + + + + | P-R | 140 | ms | [facility] | | | INTERVAL | | | OF | | | | | | CARDIOLOGY | | + + + + + + | P AXIS | 69 | deg | [facility] | | | | | | OF | | | | | | CARDIOLOGY | | + + + + + + | QRS | 92 | ms | [facility] | | | DURATION | | | OF | | | | | | CARDIOLOGY | | + + + + + + | QT | 388 | ms | [facility] | | | | | | OF | | | | | | CARDIOLOGY | | + + + + + + | QTCB | 428 | ms | [facility] | | | | | | OF | | | | | | CARDIOLOGY | | + + + + + + | R AXIS | -30 | deg | [facility] | | | | | | OF | | | | | | CARDIOLOGY | | + + + + + + | T AXIS | 52 | deg | [facility] | | | | | | OF | | | | | | CARDIOLOGY | | + + + + + + | ECG | SINUS RHYTHMATRIAL | | [facility] | | | IMPRESSION | PREMATURE COMPLEX- | | OF | | | | OTHERWISE NORMAL ECG | | CARDIOLOGY | | | | -Electronically signed | | | | | | by: ELVIA LAM | | | | | | 09-10-2015 12:53:41 | | | | + + + + + + + + | Specimen | + + | | + + + + + | Narrative | Performed At | + + + | | | + + + + + + + + | Performing | Address | City/State/Zipcode | Phone Number | | Organization | | | | + + + + + | [facility] | [address] | [place], [place] | | | CARDIOLOGY | [address] | [phone] | | + + + + + documented in this encounter Visit Diagnoses + + | Diagnosis | + + | Perirectal abscess - Primary Abscess of anal and rectal regions | + + | DVT (deep venous thrombosis) ([facility]) Acute venous embolism and thrombosis of | | unspecified deep vessels of lower extremity | + + | DM2 (diabetes mellitus, type 2) ([facility]) Type II or unspecified type diabetes mellitus | | without mention of complication, not stated as uncontrolled | + + | Obesity Obesity, unspecified | + + | Nicotine addiction Tobacco use disorder | + + documented in this encounter Administered Medications + +--------+ +--------+------+------+ | Medication Order | MAR | Action | Dose | Rate | Site | | | Action | Date | | | | + +--------+ +--------+------+------+ | acetaminophen (TYLENOL) tablet | Given | 09/13/19 | 650 mg | | | | 325-650 mg 325-650 mg, oral, | | 16 10:52 | | | | | EVERY 4 HOURS NEEDED, Starting | | AM PST | | | | | 09/10/15 at 1142, Until Fri | | | | | | | 09/13/15 at 1905, mild pain | | | | | | + +--------+ +--------+------+------+ +-------+ +--------+---+---+ | Given | 09/13/19 | 650 mg | | | | | 16 2:41 | | | | | | AM PST | | | | +-------+ +--------+---+---+ | Given | 09/12/19 | 650 mg | | | | | 16 12:25 | | | | | | AM PST | | | | +-------+ +--------+---+---+ +---+---+ | | | +---+---+ + +-------+ +--------+---+---+ | docusate sodium (COLACE) | Given | 09/13/19 | 100 mg | | | | capsule 100 mg 100 mg, oral, | | 16 9:56 | | | | | TWICE DAILY, First dose on Wed | | AM PST | | | | | 09/10/15 at 1400, Until | | | | | | | Discontinued | | | | | | + +-------+ +--------+---+---+ +-------+ +--------+---+---+ | Given | 09/12/19 | 100 mg | | | | | 16 9:06 | | | | | | PM PST | | | | +-------+ +--------+---+---+ | Given | 09/12/19 | 100 mg | | | | | 16 12:25 | | | | | | AM PST | | | | +-------+ +--------+---+---+ +---+---+ | | | +---+---+ + +-------+ +--------+---+---+ | enoxaparin (LOVENOX) injection | Given | 09/10/19 | 150 mg | | | | 150 mg 150 mg (rounded from 151 | | 16 9:13 | | | | | mg = 1 mg/kg | | PM PST | | | | | 151 kg), subcutaneous, EVERY 12 | | | | | | | HOURS, First dose on Wed09/10/15 | | | | | | | at 2100, Until Discontinued | | | | | | + +-------+ +--------+---+---+ +---+---+ | | | +---+---+ + +-------+ +--------+---+---+ | enoxaparin (LOVENOX) injection | Given | 09/11/19 | 150 mg | | | | 150 mg 150 mg (rounded from 151 | | 16 9:14 | | | | | mg = 1 mg/kg | | AM PST | | | | | 151 kg), subcutaneous, ONCE, 1 | | | | | | | dose, 09/11/15 at 0845 | | | | | | + +-------+ +--------+---+---+ +---+---+ | | | +---+---+ + +-------+ +-------+---+---+ | enoxaparin (LOVENOX) injection | Given | 09/12/19 | 40 mg | | | | 40 mg 40 mg, subcutaneous, EVERY | | 16 9:02 | | | | | EVENING, First dose on Argenis | | PM PST | | | | | 09/12/15 at 2100, Until | | | | | | | Discontinued | | | | | | + +-------+ +-------+---+---+ +---+---+ | | | +---+---+ + +---------+ +--------+---+---+ | HYDROmorphone 25 mg in | New Bag | 09/12/19 | 0.2 mg | | | | preservative free NaCl 0.9% 50 mL | | 16 2:00 | | | | | CHEESE MAKER infusion intravenous, | | PM PST | | | | | CONTINUOUS, Starting Argenis 09/12/15 | | | | | | | at 1330, Until 09/13/15 at | | | | | | | 0224 | | | | | | + +---------+ +--------+---+---+ + +---+ | | | + +---+ | HYDROmorphone CHEESE MAKER infusion 1 | | | dose, Starting Argenis 09/12/15 at | | | 1332, Until Argenis 09/12/15 at 1400 | | + +---+ | | | + +---+ + +-------+ +---------+---+---+ | insulin lispro (HUMALOG) | Given | 09/12/19 | 2 Units | | | | injection subcutaneous, FOUR | | 16 6:47 | | | | | TIMES DAILY, First dose on Wed | | PM PST | | | | | 09/10/15 at 1215, Until | | | | | | | Discontinued | | | | | | + +-------+ +---------+---+---+ +-------+ +---------+---+---+ | Given | 09/12/19 | 1 Units | | | | | 16 1:11 | | | | | | PM PST | | | | +-------+ +---------+---+---+ | Given | 09/11/19 | 2 Units | | | | | 16 6:30 | | | | | | AM PST | | | | +-------+ +---------+---+---+ +---+---+ | | | +---+---+ + +---------+ + + +---+ | lactated ringers IV 50 mL/hr, | New Bag | 09/10/19 | 50 mL/hr | 50 mL/hr | | | intravenous, CONTINUOUS, Starting | | 16 2:25 | | | | | 09/10/15 at 1345, Until Wed | | PM PST | | | | | 09/11/15 at 1022 | | | | | | + +---------+ + + +---+ +---+---+ | | | +---+---+ + +---------+ + + +---+ | lactated ringers IV 75 mL/hr, | New Bag | 09/12/19 | 75 mL/hr | 75 mL/hr | | | intravenous, CONTINUOUS, Starting | | 16 2:07 | | | | | 09/11/15 at 2300, Until Argenis | | PM PST | | | | | 09/12/15 at 1507 | | | | | | + +---------+ + + +---+ + + +---+---+---+ | given by anesthesiology | 09/12/19 | | | | | | 16 12:13 | | | | | | PM PST | | | | + + +---+---+---+ | New Bag | 09/12/19 | | | | | | 16 10:27 | | | | | | AM PST | | | | + + +---+---+---+ +---+---+ | | | +---+---+ + +---------+ + + +---+ | lactated ringers IV 75 mL/hr, | New Bag | 09/12/19 | 75 mL/hr | 75 mL/hr | | | intravenous, CONTINUOUS, Starting | | 16 6:55 | | | | | Argenis 09/12/15 at 1915, Until Fri | | PM PST | | | | | 09/13/15 at 0651 | | | | | | + +---------+ + + +---+ +---+---+ | | | +---+---+ + +---------+ +-----+---+---+ | magnesium sulfate in water IV | New Bag | 09/10/19 | 4 g | | | | (RTU) 4 g 4 g, intravenous, | | 16 3:52 | | | | | ONCE, 1 dose, 09/10/15 at 1530 | | PM PST | | | | + +---------+ +-----+---+---+ +---+---+ | | | +---+---+ + + + +---------+---+---+ | nicotine (NICOTROL) 21 mg/24 hr | Applied | 09/10/19 | 1 patch | | | | patch 1 patch 1 patch, | Patch | 16 2:26 | | | | | transdermal, DAILY, First dose on | | PM PST | | | | | 09/10/15 at 1400, Until | | | | | | | Discontinued | | | | | | + + + +---------+---+---+ +---+---+ | | | +---+---+ + +---------+ +------+---+---+ | ondansetron (ZOFRAN) injection | New Bag | 09/12/19 | 4 mg | | | | 4 mg 4 mg, intravenous, EVERY 12 | | 16 4:38 | | | | | HOURS NEEDED, Starting Tue | | PM PST | | | | | 09/10/15 at 1800, Until Fri | | | | | | | 09/13/15 at 1905, nausea/vomiting | | | | | | + +---------+ +------+---+---+ +---+---+ | | | +---+---+ + +-------+ +-------+---+---+ | oxyCODONE (immediate release) | Given | 09/12/19 | 15 mg | | | | (ROXICODONE) tablet 5-15 mg 5-15 | | 16 6:53 | | | | | mg, oral, EVERY 3 HOURS | | AM PST | | | | | NEEDED, Starting 09/10/15 at | | | | | | | 1216, Until Argenis 09/12/15 at 1507, | | | | | | | moderate pain | | | | | | + +-------+ +-------+---+---+ +-------+ +-------+---+---+ | Given | 09/12/19 | 15 mg | | | | | 16 3:31 | | | | | | AM PST | | | | +-------+ +-------+---+---+ | Given | 09/12/19 | 15 mg | | | | | 16 12:25 | | | | | | AM PST | | | | +-------+ +-------+---+---+ +---+---+ | | | +---+---+ + +-------+ +-------+---+---+ | oxyCODONE (immediate release) | Given | 09/13/19 | 15 mg | | | | (ROXICODONE) tablet 5-15 mg 5-15 | | 16 12:50 | | | | | mg, oral, EVERY 3 HOURS | | PM PST | | | | | NEEDED, Starting Wed09/13/15 at | | | | | | | 0224, Until Wed09/13/15 at 1905, | | | | | | | moderate pain | | | | | | + +-------+ +-------+---+---+ +-------+ +-------+---+---+ | Given | 09/13/19 | 15 mg | | | | | 16 9:56 | | | | | | AM PST | | | | +-------+ +-------+---+---+ | Given | 09/13/19 | 15 mg | | | | | 16 6:22 | | | | | | AM PST | | | | +-------+ +-------+---+---+ +---+---+ | | | +---+---+ + +---------+ +---------+---+---+ | promethazine (PHENERGAN) | New Bag | 09/12/19 | 12.5 mg | | | | injection 12.5 mg 12.5 mg, | | 16 6:51 | | | | | intravenous, EVERY 8 HOURS | | PM PST | | | | | NEEDED, Starting Argenis 09/12/15 at | | | | | | | 1841, Until 09/13/15 at 1905, | | | | | | | nausea/vomiting | | | | | | + +---------+ +---------+---+---+ +---+---+ | | | +---+---+ + +-------+ + +---+---+ | sodium phosphates (FLEET) 19-7 | Given | 01/21/20 | 1 Bottle | | | | gram/118 mL rectal enema 1 Bottle | | 16 6:41 | | | | | 1 Bottle, rectal, ONCE, 1 dose, | | AM PST | | | | | Argenis 09/12/15 at 0600 | | | | | | + +-------+ + +---+---+ +---+---+ | | | +---+---+ documented in this encounter
--- OUTSIDE RECORDS SUMMARY | ~2019-01-04 | XMS | Encounter Summary ---
Demographics + + + | Address | [address] | | | [place] [address] | + + + | Home Phone | | + + + | Preferred Language | Unknown | + + + | Marital Status | Single | + + + | Temple Affiliation | NRP | + + + | Race | White | + + + | Ethnic Group | Not or | + + + Author + + + | Author | [facility] | + + + | Organization | [facility] | + + + | [...] Team Providers + +------+ + | Care Metalsmith Apprentice Name | Role | Phone | + +------+ + | Ana Ascencio NP | PCP | Unavailable | + +------+ + Reason for Visit AUTH/CERT +--------+--------+ + [...] Description | +--------+---------+ + + + | 09/12/ | Surgery | 6A Intra Op [facility] | Cinthia Oro MD | ANORECTAL EXAM UNDER | | 2015 | | [facility] | [address] [facility] | ANESTHESIA; | | | | Admitting Desk | [facility], | POSSIBLE DRAINAGE | | | | Located on the | [place] [address] | [address], | | | | floor [address] [facility] | [phone] | POSSIBLE FISTULOTOMY | | | | [facility] | | | | | | [place], [place] | | | | | | [address] | | | +--------+---------+ + + + [...] 10, 2015, at the request of his loca l surgeon, Dr. Devan Butler. He had multiple [...] June 2015 at the PCP clinic at [facility] in [place]. 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 He underwen t exam [...] PM Cinthia Oro [facility] 6th Floor [phone] [facility] Schedule the following appointment(s) when you get home Follow up with CINTHIA ORO MD In 2 weeks. Specialty: General Surgery Contact information [address] [facility] [address] Follow up with FRANCISCA BANERJEE MD On 09/25/2015. Specialty: Hematology & Oncology Why: at 1pm for follow up regarding lower extremity DVT Contact information [address] [place] [address] Other Discharge Orders and Instructions Medication Refill Instructions: If you need a refill on any narcotic pain medications, please call the clinic ([phone] ) by 2 pm on for any [...] during the day time hours by calling our [facility] surgery office at [phone] - After hours, weekends and holidays, you may call the hospital service car operator at [phone] an d have the economic specialist Green Team for general surgery paged. Constipation: It [...] activity, sleep and overall healing. You are zelad graham sent home with a prescription for pain relief. This should be taken every 3-6 hours per y our instructions. Some medications, like lortab or hydrocodone have Tylenol in it. Make yaya e you do not take more than 3,000 mg of tylenol or acetaminophen in 24 hours. 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 Provide for a home One Touch Monitor. P CP contact number at [facility] is [phone]. I was able to talk with his provider, Pancho Ascencio SOLID WASTE MANAGEMENT ENGINEER, who has had 2 clinic visits, changed [...] Dr. Oro on September 25 ALESSANDRO Steward [facility] [address] [place] [address] This assessment and plan was formulated both [...] the time of discharge to discuss with helminthology teacher tana ut future plans. Shun Garcia MD [facility] Internal Medicine PGY-3 Pager [phone] Patient staffed with attending physician, Dr. Banerjee, who agrees with the above assessme nt and plan. Kenny Loco Md - 09/12/2015 12:30 PM PSTINPATIENT BRIEF OPERATIVE NOTE Procedure Date: 09/12/2015 Author: Kneny Quintero MD Attending Physician: MD Brandy Assistants: [...] inflamed h ydradenitis Estimated Blood Loss: 5cc EYKiJanet gonsales MD - 09/12/2015 5:52 AM PST GREEN PROGRESS: Attending Physician: Cinthia Oro MD 09/12/2015 ID:Fede Boyer is a 34 y.o. 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 Provide for a home One Touch Monitor. P CP contact number at [facility] is [phone]. I was able to talk with his provider, Pancho Ascencio SOLID WASTE MANAGEMENT ENGINEER, who has had 2 clinic visits, changed [...] & line dates reviewed; Janet Raza MD [facility] Surgery, [place] [phone] Diagnoses: K61.1 Perirectal abscess akovec, S[facility] - 09/11/2015 6:13 AM PST MIL[facility] PROGRESS: [...] cho ices. He is amenable to the Dice Manager talking with him. Will provide the One Touch [facility] today for his use MEDICATIONS: Current facility-administered medications: acetaminophen (TYLENOL) tablet 325-650 mg, 325-6 50 mg, oral, Q4H PRN, Janet Raza MD, 325 mg at 09/11/15 0610 dextrose 50 % in water IV 25 mL, 25 mL, intravenous, PRN, Janet Raza MD docusate sodium (COLACE) capsule 100 mg, 100 mg, oral, BID, ALESSANDRO Steward, 100 mg at 09/10/152112 enoxaparin (LOVENOX) injection 150 mg, 1 mg/kg, [...] at 09/10/15 1425, 50 mL/hr at 09/10/15 142 nicotine (NICOTROL) 21 mg/24 hr patch 1 [...] Chemistries Recent Labs 09/10/15 1255 09/10/15 1324 09/10/15 1835 09/10/15 2216 NA 139 -- -- -- K 4.0 [...] 1255 09/10/15 1324 09/10/15 1835 09/10/15 2216 GLU 100* 84 147* 142* ASSESSMENT AND [...] 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 Provide for a home One Touch Monitor. PCP contact number at [facility] is [phone] . I was able to talk with his provider, Ana Ascencio SOLID WASTE MANAGEMENT ENGINEER, who has had 2 clinic visits, ch [...] & line dates reviewed; Janet Raza MD [facility] Surgery, R1 Team pg [id number] -addendum Sully Ovalle, ACNP [facility] [address] [place], [place] [id number] Diagnoses: K61.1 Perirectal abscess Associated attestation - Cinthia Oro MD - 09/12/2015 7:39 AM PSTCOLON AND RECTAL SURGERY At [facility] Progress Note I have seen and examined [...] AT,GLUC,CA,AST,ALT,B | | | | | | NIDIGO TOTAL,ALK | | | | | | [...] + + | Transcriptions | + + Cinthia Butts MD - 09/12/2015 1:34 PM PST Date of Service: 09/12/2015 Attending | | Surgeon: Cinthia Oro MD Full Stack Software Developer(s): Kenny Quintero M.D. | | Preoperative Diagnoses: [...] follows. We cannulated the tracts with a Maru | | probe, placed an A-line wire [...] scrubbed for | | the entire procedure.LEÓN Buchanan/LENNOXLDD: 09/12/2015 12:38:49DT: 09/12/2015 | | 13:34:17Job #: [id number] | | | |We placed a seton [...] | | | |Cinthia Oro MD | |[facility] | | | | | | /[id number] | + + CAPILLARY BLOOD GLUCOSE (NO [...] WALLS | [address] | [place], [place] | | | DONTE POINT OF CARE | [address] | [address] | | | TESTS | | | [...] + + + + + | [facility] | [address] | [place], [place] | | | TAYLOR KENT OF SHANIQUA | [address] | [address] | | | TESTS | | | [...] | + + + + + | [facility] | [address] | [place] [address] | | | SERVICES, CORE | PAUL [...] (H) | 60 - 99 mg/dL | [facility] - | | | GLUCOSE, | | [...] WALLS | [address] | [place], [place] | | | TAY[place]OR K[place] | [facility] | [address] | | | TESTS | | | | + + + + + CAPILLARY BLOOD GLUCOSE (NO CHG)DOUGLAS (09/12/2015 6:32 PM PST) + +---------+ + + + | Component | Value | Ref Range | Performed | Pathologist | | | | | At | Signature | + +---------+ + + + | BLOOD | 160 (H) | 60 - 99 mg/dL | [facility] - | | | GLUCOSE, | | | [facility] | | | POC | | | HILL, POINT | | | | | | [...] ARNOLAM | [address] | [place], [place] | | | TAYLOR KENT OF [place] | [facility] | [address] | | | TESTS | | | [...] (H) | 60 - 99 mg/dL | [facility] - | | | GLUCOSE, | | [...] WALLS | [address] | [place], [place] | | | TAYLOR KENT OF CARE | [address] | [address] | | | TESTS | | | [...] TITI | [address] | [place], [place] | | | TAYLOR KENT OF [place] | [address] | [address] | | | TESTS | | | [...] | + + + + + | [facility] | [address] | [place] [address] | | | SERVICES, CORE | PAUL [...] | | | LABORATORY | | | [place] | | | SERVICES, | | | [...] | Interpretive Information: <60 mL/min/1.73 sq | BRITTANY, CORE | | m Chronic Kidney Disease [...] | + + + + + | [facility] | [address] | [place] [address] | | | OLESYA SOTO | PAUL [...] | + + + + + | [facility] | [address] | [place] [address] | | | SERVICES, CORE | PAUL [...] (H) | 60 - 99 mg/dL | [facility] - | | | GLUCOSE, | | [...] WALLS | [address] | [place], [place] | | | DONTE POINT OF CARE | [address] | [address] | | | TESTS | | | [...] MAR[place] | [address] | [place], [place] | | | TAYLOR KENT OF CARE | [address] | [address] | | | TESTS | | | | + + + + + CAPILLARY BLOOD GLUCOSE (NO CHG), POC (09/11/2015 11:46 AM PST) + +---------+ [...] + | [facility] | [address] | [place], [place] | | | TAYLOR KENT OF CARE | [address] | [address] | | | TESTS | | | [...] (H) | 60 - 99 mg/dL | [facility] - | | | GLUCOSE, | | [...] + + + | [facility] | [address] | [place], [place] | | | DONTE POINT OF CARE | [address] | [address] | | | TESTS | | | [...] [facility] | [address] | [place] [address] | | | SERVICES, CORE | PARK [...] levels of 0.35 - 0.7 U/mL | SERVICES, CORE | + + + + + + + + | Performing | Address | City/State/Zipcode | Phone Number | | Organization | | | | + + + + + | [facility] | [address] | [place] [address] | | | BRITTANY, OLESYA | PAUL [...] (H) | 60 - 99 mg/dL | [facility] - | | | GLUCOSE, | | [...] [place] | [address] | [place], [place] | | | T[place]OR K[place] | [address] | [address] | | | TESTS | | | [...] WALLS | [address] | [place], [place] | | | TAYLOR KENT OF CARE | [address] | [address] | | | TESTS | | | [...] | | | | | | MD Sole HANLEY | | | | | | personally [...] Final/Electronically | | | | | | sandrita / SYLVIE | | | | | [...] WALLS | [address] | [place], [place] | | | TAYLOR K[place] | [address] | [address] | | | TESTS | | | [...] [facility] | [address] | [place] [address] | | | SERVICES, CORE | [address] | | | + + + + + C-REACTIVE PROTEIN (09/10/2015 12:55 PM PST) + +-------+ + + + | Component | Value | Ref Range | Performed | Pathologist | | | | | At | Signature | + +-------+ + + + | C-REACTIVE | 9.9 | <10.0 mg/L | [facility] | | | PROTEIN | | | [...] | 01/24/2014. | LABORATORY | | | SERVICES, CORE | + + + + + + + + | Performing | Address | City/State/Zipcode | Phone Number | | Organization | | | | + + + + + | [facility] | [address] | [place] [address] | | | SERVICES, CORE | PAUL [...] | + + + + + | [facility] - | [address] | [place] [address] | | | [place] | | | | + + + [...] [facility] | [address] | [place] [address] | | | SERVICES, SPECIAL | [address] | | | | IMM + [...] mech. valves (2.5 - 3.5) INR | SERVICES, CORE | + + + + + + + + | Performing | Address | City/State/Zipcode | Phone Number | | Organization | | | | + + + + + | [facility] | [address] | [place] [address] | | | BRITTANY, OLESYA | PAUL [...] | + + + + + | [facility] | [address] | [place] [address] | | | SERVICES, CORE | [address] | | | + + + + + MAGNESIUM, PLASMA (09/10/2015 12:55 PM PST) + +---------+ + + + | Component | Value | Ref Range | Performed | Pathologist | | | | | At | Signature | + +---------+ + + + | MAGNESIUM,P | 1.4 (L) | 1.8 - 2.5 mg/dL | [facility] | | | LASMA | | | [...] | + + + + + | [facility] | [address] [facility] | [place] [address] | | | SERVICES, CORE | PAUL [...] | | | LABORATORY | | | [place] | | | SERVICES, | | | [...] | + + + + + | [facility] | [address] | [place] [address] | | | SERVICES, CORE | [address] | | | + + + + + 12 LEAD ECG (09/10/2015 12:39 PM PST) + + + + + + | Component | Value | Ref Range | Performed | Pathologist | | | | | At | Signature | + + + + + + | VENTRICULAR | 73 | bpm | [facility] DEPT | | | RATE | | [...] DEPT OF | [address] | [place], [place] | | | CARDIOLOGY | [address] | [address] | | + + + + + documented in this encounter Visit Diagnoses + + | Diagnosis | + + | Rectal pain Anal or rectal pain | + + documented in this encounter Administered Medications + +--------+ +---------+------+ + | Medication Order | MAR | Action | Dose | Rate | Site | | | Action | Date | | | | + +--------+ +---------+------+ + | bacitracin ointment | Given | 09/12/19 | 1 strip | | Perineum | | INTRAPROCEDURE PRN, Starting Argenis | | 16 12:39 | | | | | 09/12/15 at 1239, Until Argenis | | PM PST | | | | | 09/12/15 at 1239 | | | | | | + +--------+ +---------+------+ + +---+---+ | | | +---+---+ + +-------+ +-------+---+ + | bupivacaine-EPINEPHrine | Given | 09/12/19 | 30 mL | | Perineum | | (MARCAINE-EPINEPHRINE) 0.25 | | 16 12:15 | | | | | %-1:200,000 injection | | PM PST | | | | | INTRAPROCEDURE PRN, Starting Argenis | | | | | | | 09/12/15 at 1215, Until Argenis | | | | | | | 09/12/15 at 1230 | | | | | | + +-------+ +-------+---+ + +---+---+ | | | +---+---+ documented in this encounter
--- OUTSIDE RECORDS SUMMARY | ~2019-01-04 | XMS | Encounter Summary ---
Demographics + + + | Address | [address] | | | [place] [address] | + + + | Home Phone | | + + + | Preferred Language | Unknown | + + + | Marital Status | Single | + + + | Jain Affiliation | NRP | + + + | Race | White | + + + | Ethnic Group | Not or | + + + Author + + + | Author | [facility] | + + + | Organization | [facility] | + + + | Address | Unknown | + + + | Phone | Unavailable | + + + Support + + +---------+ + | Name | Relationship | Address | Phone | + + +---------+ + | Marla Portillo | ECON | Unknown | | + + +---------+ + | Celia Castelalnos | ECON | Unknown | | + + +---------+ + Care Team Providers + +------+ + | Care Licensed Mortgage Loan Officer Name | Role | Phone | + +------+ + | Ana Ascencio NP | PCP | | + +------+ + Reason for Visit + + + | Reason | Comments | + + + | Medical Records | | | Review | | + + + Encounter Details +--------+ + + + + | Date | Type | Department | Care Team | Description | +--------+ + + + + | 06/12/ | Abstract | Dig[facility]ive Health | Cinthia Nava MD | Medical Records | | 2016 | | Center at [facility] [address] | [address] | Review | | | | [address] | [address] [place], | | | | | Mailcode: [place] | [place] [address] | | | | | for Health and | [phone] | | | | | [facility] [address] | | | | | | [place], [place] | | | | | | [address] | | | | | | [phone] | | | +--------+ + + + [...]
--- OUTSIDE RECORDS SUMMARY | ~2019-01-04 | XMS | Encounter Summary ---
Demographics + + + | Address | [address] | | | [place] [address] | + + + | Home Phone | | + + + | Preferred Language | Unknown | + + + | Marital Status | Single | + + + | Mandaeism Affiliation | NRP | + + + | Race | White | + + + | Ethnic Group | Not or | + + + Author + + + | Author | [facility] | + + + | Organization | [facility] | + + + | Address | [...] Team Providers + +------+ + | Care Front Maker Lockstitch Name | Role | Phone | + +------+ + | No Pcp Per Patient | PCP | Unavailable | + +------+ + Reason for Visit + + + | Reason | Comments | + + + | Surgery Scheduling | | + + + | Scheduling | | + + + | Other | Drainage | + + + Encounter Details +--------+ + + + + | Date | Type | Department | Care Team | Description | +--------+ + + + + | 06/18/ | Telephone | Digestive Health | Cinthia Nava MD | Surgery Scheduling; | | 2015 | | Center at [facility] [address] | [address] | Scheduling; Other | | | | [address] | [facility], | ([facility]) | | | | Mailcode: [place] | [place] [address] | | | | | [facility] and | [phone] | | | | | [facility] [address] | | | | | | [place], [place] | | | | | | [address] | | | | | | [phone] | | | +--------+ + + + [...]
--- OUTSIDE RECORDS SUMMARY | ~2019-01-04 | XMS | Encounter Summary ---
Demographics + + + | Address | [address] | | | [place] [address] | + + + | Home Phone | | + + + | Preferred Language | Unknown | + + + | Marital Status | Single | + + + | Restoration Affiliation | NRP | + + + | Race | White | + + + | Ethnic Group | Not or | + + + Author + + + | Author | [facility] | + + + | Organization | [facility] | + + + | Address [...] Team Providers + +------+ + | Care Production Material Handler Name | Role | Phone | + +------+ + | Ana Ascencio NP | PCP | Unavailable | + +------+ + Reason for Visit + + + | Reason | Comments | + + + | Follow-up visit | | + + + | Hidradenitis | | | suppurativa | | + + + Office Visit - E/M Services (Routine) +--------+--------+ + + + + | Status | Reason | Specialty | Diagnoses / | Referred By | Referred To | | | | | Procedures | Contact | Contact | +--------+--------+ + + + + | Closed | | Surgery | | Non-[facility] | Gs | | | | | | Epic Dept | Colorectal | | | | | | | [facility] [address] | | | | | | | [address] | | | | | | | Mailcode: | | | | | | | [facility] | | | | | | | [facility] and | | | | | | | Healing, | | | | | | | [address] | | | | | | | [place], [place] | | | | | | | [address] | | | | | | | Phone: | | | | | | | [phone] | | | | | | | Fax: | | | | | | | [phone] | +--------+--------+ + + + + Encounter Details +--------+---------+ + + + | Date | Type | Department | Care Team | Description | +--------+---------+ + + + | / | Office | Digestive Health | Cinthia Nava MD | Hidradenitis | | 2016 | Visit | Center at [facility] [address] | [address] | suppurativa of anus | | | | [address] | [address] [place], | (Primary Dx); | | | | Mailcode: [place] | [place] [address] | Pilonidal cyst with | | | | for Health and | [phone] | abscess | | | | [facility] [address] | | | | | | [place], [place] | | | | | | [address] | | | | | | [phone] | | | +--------+---------+ + + + [...] + + + | Blood Pressure | 148/61 | 10/21/2015 11:43 AM | | | | | PST | | + + + + + | Pulse | 84 | 10/21/2015 11:43 AM | | | | | PST | | + + + + + | Temperature | 37.2 C (98.9 F) | 10/21/2015 11:43 AM | | | | | PST | | + + + + + | Respiratory Rate | 19 | 10/21/2015 11:43 AM | | | | | PST | | + + + + + | Oxygen Saturation | 100% | 10/21/2015 11:43 AM | | | | | PST | | + + + + + | Inhaled Oxygen | - | - | | | Concentration | | | | + + + + + | Weight | - | - | | + + + + + | Height | - | - | | + + + + + | Body Mass Index | - | - | | + + + + + documented in this encounter Patient Instructions Patient Instructions Cinthia Nava MD - 10/21/2015 12:31 PM PSTPlan: I removed his setons at his request. Follow up with me as needed documented in this encounter Progress Notes Al Palm MA - 10/21/2015 12:36 PM PSTExamination chaperoned by Al Palm MA.Elect ronically signed by Al Palm MA at 11/17/2015 8:53 PM Cinthia Sierra MD - 10/21/2015 12 :18 PM PSTCOLON AND RECTAL SURGERY Clinic Note Established Patient Assessment: 34 y.o. morbidly obese (BMI 44.7) male with prior yeast infection near penis prior left calf DVT venous dopplers (09/10/15) DVT in left distal femoral and popliteal inpatient hematology consult (09/12/15) lovenox 40 mg a day for 2 weeks after discharge diabetes/1 ppd x 24 years smoker pilonidal abscess/perineal hidradenitis suppurativa drainage of left pilonidal abscess (seton)/posterior hidradenitis (right setons x3) on 09/12/15 Plan: I removed his setons at his request. Follow up with me as needed Subjective: admitted 09/10/15 drainage of left pilonidal abscess (seton)/posterior hidradenitis (right setons x3) on 09/12/15 discharged on 09/13/15 last seen by me on 09/25/15. The only discomfort he has is from chafing of the setons. Not taking any pain medication. Having a lot less drainage. No fevers, chills, or urinary retention. 1 BM every 2 days . Recent skin rash resolved. He has not checked his sugars recently. State won't pay for hi s circumcision. All other systems reviewed and are negative. He comes for further followup . He would like his setons removed. Objective: BP 148/61 | Pulse 84 | Temp (Src) 37.2 C (98.9 F) (Oral) | RR 19 | SpO2 100% Perineum: seton in left pilonidal abscess, 3 right-sided setons no erythema, fluctuance, crepitus, or drainage Rectal: deferred at his request With this Return/Re-evaluation patient, I spent 14 minutes of kcer-dw-atfx time, of which m ore than half the time was spent in counseling.Electronically signed by Cinthia Nava MD at 10/22 8:53 PM PDTdocumented in this encounter Plan of Treatment Not on filedocumented as of this encounter Visit Diagnoses + + | Diagnosis | + + | Hidradenitis suppurativa of anus - Primary Hidradenitis | + + | Pilonidal cyst with abscess | + + documented in this encounter"
--- OUTSIDE RECORDS SUMMARY | ~2019-01-04 | XMS | Clinical Summary ---
Demographics + + + | Address | [address] | | | [place] [address] | + + + | Home Phone | | + + + | Preferred Language | Unknown | + + + | Marital Status | Legally | + + + | Hinduism Affiliation | Unknown | + + + | Race | Unknown | + + + | Ethnic Group | Unknown | + + + Author + + + | Author | [facility] | + + + | Organization | [facility] | + + + | Address | Unknown | + + + | Phone | Unavailable | + + + Support + + +---------+ + | Name | Relationship | Address | Phone | + + +---------+ + | Sarai Samuel | ECON | Unknown | | + + +---------+ + | Amparo Lagunas | ECON | Unknown | | + + +---------+ + Care Team Providers + +------+ + | Care Entry Level Truck Driver Name | Role | Phone | + +------+ + | Dr. Hyun | PP | Unavailable | + +------+ + Allergies + + + + + + | Active Allergy | Reactions | Severity | Noted | Comments | | | | | Date | | + + + + + + | Morphine | Itching | Medium | 01/11/20 | | | | | | 12 | | + + + + + + Current Medications + + +-------+---------+------+------+-------+ | Prescription | Sig. | Disp. | Refills | Star | End | Statu | | | | | | t | Date | s | | | | | | Date | | | + + +-------+---------+------+------+-------+ | metFORMIN | Take 1,000 mg by | | | | | Activ | | (GLUCOPHAGE) 500 MG | mouth 2 (two) times | | | | | e | | tablet | daily with meals. | | | | | | + + +-------+---------+------+------+-------+ | Multiple Vitamin | Take 1 tablet by | | | | | Activ | | (ONE-A-DAY MENS PO) | mouth daily. | | | | | e | + + +-------+---------+------+------+-------+ | Insulin Detemir | Inject 50 Units into | | | | | Activ | | (LEVEMIR FLEXPEN SC) | the skin daily. | | | | | e | + + +-------+---------+------+------+-------+ | linagliptin | Take 5 mg by mouth | | | | | Activ | | (TRADJENTA) 5 MG | daily. | | | | | e | | tablet | | | | | | | + + +-------+---------+------+------+-------+ Active Problems + + + | Problem | Noted Date | + + + | Phimosis | 04/27/2017 | + + + | DM type 2 (diabetes mellitus, type 2) | 10/31/2013 | + + + | Cardiac murmur | 10/31/2013 | + + + | DVT, lower extremity | 01/26/2013 | + + + Family History + + +------+ + | Medical History | Relation | Name | Comments | + + +------+ + | Diabetes type II | Mother | | | + + +------+ + + +------+--------+ + | Relation | Name | Status | Comments | + +------+--------+ + | Mother | | Alive | | + +------+--------+ + Social History + +-------+ +--------+------+ | Tobacco Use | Types | Packs/Day | Years | Date | | | | | Used | | + +-------+ +--------+------+ | Current Every Day | | 0.5 | 29 | | | Smoker | | | | | + +-------+ +--------+------+ + + +---------+ + | Alcohol Use | Drinks/We | oz/Week | Comments | | | ek | | | + + +---------+ + | Yes | | | "once gracie blue cisse" | + + +---------+ + + + + | Sex Assigned at | Date Recorded | | | | + + + | Not on file | | + + + Last Filed Vital Signs + + + + | Vital Sign | Reading | Time Taken | + + + + | Blood Pressure | 118/70 | 12/13/2013 2:16 PM PDT | + + + + | Pulse | 91 | 12/13/2013 2:16 PM PDT | + + + + | Temperature | 36.4 C (97.6 F) | 01/11/2012 10:11 PM PDT | + + + + | Respiratory Rate | 20 | 04/27/2017 2:20 PM PDT | + + + + | Oxygen Saturation | 95% | 10/31/2013 2:41 PM PDT | + + + + | Inhaled Oxygen | - | - | | Concentration | | | + + + + | Weight | 156 kg (344 lb) | 04/27/2017 2:20 PM PDT | + + + + | Height | 185.4 cm (6' 1") | 04/27/2017 2:20 PM PDT | + + + + | Body Mass Index | 45.39 | 04/27/2017 2:20 PM PDT | + + + + Plan of Treatment + + + + + | Health Maintenance | Due Date | Last Done | Comments | + + + + + | Diabetic Eye Exam | | | | | | 9 | | | + + + + + | Diabetic Foot Exam | | | | | | 9 | | | + + + + + | Hemoglobin A1c | | | | | | 9 | | | + + + + + | Microalbumin | | | | | Screening | 9 | | | + + + + + | Vaccine: | | | | | Dtap/Tdap/Td (1 - | 8 | | | | Tdap) | | | | + + + + + | Vaccine: | | | | | Pneumococcal 19-64 | 8 | | | | (PPSV23 only) Medium | | | | | Risk (1 of 1 - | | | | | PPSV23) | | | | + + + + + | Statin Therapy | | | | | (optimal intensity) | 6 | | | + + + + + | Vaccine: Influenza | | | | | (Season Ended) | 9 | | | + + + + + Results Not on filefrom Last 3 Months Insurance + +--------+ +------+-------+ + | Payer | Benefi | Subscriber | Type | Phone | Address | | | t Plan | ID | | | | | | / | | | | | | | Group | | | | | + +--------+ +------+-------+ + | MEDICAID | [place] | [id number] | | | [address] | | | [place] | | | | [place] | | | [place] | | | | [address] | | | [employer] | | | | | + +--------+ +------+-------+ + + +--------+ +--------+ + + | Guarantor Name | Accoun | Relation to | Date | Phone | Billing Address | | | t Type | Patient | of | | | | | | | | | | + +--------+ +--------+ + + | FEDE BOYER | Person | Self [birth year] Home: | [address] | | | al/Fam | | 1980 | [phone] | [place] [address] | | | [place] | | | [phone] | | + +--------+ +--------+ + +
--- OUTSIDE RECORDS SUMMARY | ~2019-01-04 | XMS | Encounter Summary ---
Demographics + + + | Address | [address] | | | [place] [address] | + + + | Home Phone | | + + + | Preferred Language | Unknown | + + + | Marital Status | Single | + + + | Presybeterian Affiliation | NRP | + + + | Race | White | + + + | Ethnic Group | Not or | + + + Author + + + | Author | [facility] | + + + | Organization | [facility] | + + + | [...] Team Providers + +------+ + | Care Director Of Sustainable Design Name | Role | Phone | + +------+ + | Ana Ascencio NP | PCP | Unavailable | + +------+ + Reason for Visit +--------+ + | Reason | Comments | +--------+ + | Pain | | +--------+ + Encounter Details +--------+ + + + + | Date | Type | Department | Care Team | Description | +--------+ + + + + | 10/02/ | Telephone | [facility] | Cinthia Nava MD | Pain | | 2016 | | [place] [address] [address] | [address] | | | | | [address] | [address] [facility], | | | | | Mailcode: [place] | [place] [address] | | | | | for Health and | [phone] | | | | | [facility] [address] | | | | | | [place], [place] | | | | | | [address] | | | | | | [phone] | | | +--------+ + + + [...]
--- OUTSIDE RECORDS SUMMARY | ~2019-01-04 | XMS | Encounter Summary ---
Demographics + + + | Address | [address] | | | [place] [address] | + + + | Home Phone | | + + + | Preferred Language | Unknown | + + + | Marital Status | Single | + + + | Judaism Affiliation | NRP | + + + | Race | White | + + + | Ethnic Group | Not or | + + + Author + + + | Author | [facility] | + + + | Organization | [facility] | + + + | Address [...] Team Providers + +------+ + | Care Jewelry Polisher Name | Role | Phone | + +------+ + | No Pcp Per Patient | PCP | Unavailable | + +------+ + Reason for Visit + + + | Reason | Comments | + + + | Follow-up encounter | | + + + | Abscess | | + + + | Hidradenitis [...] | | | | | | | [facility] | | | | | | | [facility] and | | | | | | | Healing, | | | | | | | [address] | | | | | | | [place], [place] | | | | | | | [address] | | | | | | | Phone: | | | | | | | [phone] | | | | | | | Fax: | | | | | | | [phone] | +--------+--------+ + + + + Encounter Details +--------+---------+ + + + | Date | Type | Department | Care Team | Description | +--------+---------+ + + + | 07/13/ | Office | [facility] | Cinthia Nava MD | Chapisenitis | | 2016 | Visit | [facility] [address] | [address] | suppurativa of anus | | | | [address] | [address] [place], | (Primary Dx); | | | | Mailcode: Center | [place] [address] | Encounter for | | | | for Health and | [phone] | smoking cessation | | | | [facility] | | counseling | | | | [place], [place] | | | | | | [address] | | | | | | [phone] | | | +--------+---------+ + + + [...] + + + | Blood Pressure | 153/84 | 07/13/2016 3:45 PM | | | | | PST | | + + + + + | Pulse | 100 | 07/13/2016 3:45 PM | | | | | PST | | + + + + + | Temperature | 36.7 C (98 F) | 07/13/2016 3:45 PM | | | | | PST | | + + + + + | Respiratory Rate | 19 | 07/13/2016 3:45 PM | | | | | PST | | + + + + + | Oxygen Saturation | - | - | | + + + + + | Inhaled Oxygen | - | - | | | Concentration | | | | + + + + + | Weight | 156 kg (344 lb) | 07/13/2016 3:45 PM | | | | | PST | | + + + + + | Height | 185.4 cm (6' 1") | 07/13/2016 3:45 PM | | | | | PST | | + + + + + | Body Mass Index | 45.39 | 07/13/2016 3:45 PM | | | | | PST | | + + + + + documented in this encounter Patient Instructions Patient Instructions Cinthia Nava MD - 07/13/2016 3:00 PM PSTGetting ready to quit? Here's how to get started. Plan: Needs to get a PCP. Smoking cessation education. Chantix prescribed Call us when quit smoking. o Most smokers know that quitting improves your health. But did you know that when you qu it, you will likely: Reduce your chances of getting sick from smoking. Have more energy and breathe easier Heal more easily from surgery, injuries, and infections. Reduce your chance of a heart attack, stroke, or cancer. Reduce your chances of a second heart attack (if you've already had one). Give your baby a healthier start in life if you are . Help the people (and pets!) you live with be healthier. Breathing in smoke can cause a sthma and other health problems, especially in children. Have more money to spend. Stop the hassles about finding a place to smoke and worrying about running out of cigare ttes. o Most smokers have seriously tried to quit, usually more than once. But, when you cut back or stop smoking, withdrawal symptoms from nicotine can make you feel not your normal celine f. Quitters can feel anxious, restless, sad or depressed, frustrated, or even angry. With drawal can make you hungrier and make it harder to sleep and think clearly. Most withdrawal symptoms go away after 3-6 weeks, although cravings can last longer. o For some smokers, quitting means first figuring out why you want to quit and then finding the best ways to overcome withdrawal. Others may just decide to quit right now and want to know what to do. The experts recommend the [place] to Quitting. o Call the [place] Tobacco Quitline at: 8-QUIT NOW or visit the website www.[place].org. A Quitline specialist will talk to you and help you decide the best way to quit. Th e Quitline may also be able to send you FREE medications. o For help online: Centers for Disease Control website at www.cdc.gov/tobacco or [facility] website for live on-line assistance for smokers at www.smokefree.gov [place] to Quitting These four keys can help withdrawal and help you successfully quit. 1. Set a specific date to quit. 2. Take the stop smoking medication your doctor recommends. 3. Get help and support from friends, family, and your health professional. 4. Learn how to stay quit. [place] to Quitting [place] 1: SET A QUIT DATE Choose a day that works for you. What's better: Wednesday morning? Wednesday morning? Sp ecial days like anniversaries or birth? Maybe today is the day! Consider giving yourself a few days to a couple of weeks to get ready. Try changing bran ds and cutting back. If you still smoke in your car or house, think about only smoking outsi de until your quit day. Be prepared for your quit day: o Be determined to succeed & stay busy! o Plan to spend time with non-smokers. o Collect a few things to have with you to help with urges. Quitters have tried sugarless g um and mints, red hot candy, water bottle, carrot sticks, a list of the reasons for quitting , pictures of family members and pets. Choose (or invent!) what you think will help. The day before your quit day, get rid of all your cigarettes, lighters and ashtrays. Perry an your car and your home to help get ready. [place] 2: TAKE A MEDICATION o Take the medication your doctor recommends. Stop smoking medications can double or tripl e your chances of success. o Medications can help you with physical, nicotine withdrawal symptoms so you can feel more like your normal self while learning not to smoke. IMPORTANT: Be sure to use enough medication and use it as long as recommended. People who smoke a lot sometimes use two medications together. But, some quitters stop using the medica tion as soon as they feel better. This can be too soon! Your doctor can help you decide. Hear[place] 3: GET HELP AND SUPPORT o Studies show that getting support helps increase your chances of quitting. o Ask your friends and family for help, but be specific. Know that some people may be helpf ul and others may not. You want to make quitting easier, not more stressful! o Find other quitters who can help. Try joining a class, getting individual coaching, or ch ecking out internet quit sites. o Call the [place] Tobacco Quitline at 5-544-Quit Now. [place] 4: LEARN HOW TO STAY QUIT o Always take it one day at a time. o Try avoiding smokers and smoking areas for the first weeks. Seeing and smelling smoke can be a big trigger and cause you to start up again. o Stick with it even if you slip up. o Remind yourself (even if you don't feel that way) that you will feel better and quitting will get easier. o Help stay motivated by rewarding yourself. Commonly Asked Questions Why do I get really uncomfortable when I try to quit? These are normal feelings. Nicotine is a drug in tobacco that affects your mind and body by causing chemical changes in your brain. Most smokers know that smoking (nicotine) can hel p you feel relaxed and calm and also keep you alert and help you concentrate. It can also re duce your appetite and delay eating. Your body gets used to having lots of nicotine over yea rs of smoking. When you suddenly cut way down or stop, your body reacts. Withdrawal starts within a couple of hours after your last cigarette. What can I expect from withdrawal? When smokers quit they often feel irritated, anxious, tired, sad or down or have a hard ti me thinking clearly. Many can't sleep as well, feel hungrier, and many gain some weight. No wonder it is hard to quit! Is there a way to quit without withdrawal? Most smokers have withdrawal when they stop. Medications help, but there isn't a painless way to quit. Some smokers have said: You just have to make up your mind to stop, or Just get past the physical craving and you'll be alright, or Don't beat yourself up i f quitting is harder for you than for your friends And, all are right! It can be hard to keep your mental attitude positive about quitting when you are feeling withdrawal. Following the [place] to Quitting can help smokers make withdrawal easier and be successf ul. I am trying to get away from nicotine! Why would I use nicotine patches, gum, or the lozen ge? This is a common question. Nicotine is an addictive drug. But it isn't nicotine that cause s cancer and the other serious diseases. It is all the other chemicals in tobacco and in the smoke that cause so much harm. When you follow a program with the patch, gum, or lozenge y ou gradually decrease the amount of nicotine you are getting. Your body has more time to adj ust and you get rid of all of the other chemicals from the tobacco and the smoke that cause harm. You can also try non-nicotine medications for quitting including bupropion (Zyban/Well butrin) or varenicline (Chantix). Can I really quit? YES! Quitting takes commitment and patience> it also takes staying with it even if it is hard to do. Think of past quit attempts as practice, not failures. Forty years ago more than 42% of Americans smoked. Now there are more ex-smokers than smokers. You can quit if you ar e willing to stick with it! Developed by: [facility]ess[facility] www.[facility] [place].edu/smokingcessation 04/26/07 documented in this encounter Progress Notes Susana Quach RN - 07/13/2016 3:00 PM PSTNeeds to quit smoking before rescheduling. Elect ronically signed by Susana Quach RN at 08/25/2016 4:29 PM Lilian Coronado MA - 016 3:00 PM PSTExamination chaperoned by Emy Ramirez MA. Cinthia Gentile MD - 07/13 3:00 PM PST [facility] Clinic Note Established Patient Assessment: 35 y.o. morbidly obese (BMI 44.7) male with prior yeast infection near penis prior left calf DVT venous dopplers (09/10/15) DVT in left distal femoral and popliteal inpatient hematology consult (09/12/15) lovenox 40 mg a day for 2 weeks after discharge diabetes/1 ppd x 24 years smoker pilonidal abscess/perineal hidradenitis suppurativa drainage of left pilonidal abscess (seton)/posterior hidradenitis (right setons x3) on 09/12/15 my clinic exam (07/13/16) perineum: posterior anal margin draining hidradenitis Plan: Needs to get a PCP. Smoking cessation education. Chantix prescribed. Call us when quit smoking. Chief Complaint: 35 y.o. male with perineal pain and drainage History of Present Illness: Patient well known to me. admitted 09/10/15 drainage of left pilonidal abscess (seton)/posterior hidradenitis (right setons x3) on 08/24 09/07 discharged on 09/13/15 last seen by me on 10/21/15 no show on 11/25/15 On 10/21/15, he told me: "The only discomfort he has is from chafing of the setons. Not taking any pain medication . Having a lot less drainage. No fevers, chills, or urinary retention. 1 BM every 2 day s. Recent skin rash resolved. He has not checked his sugars recently. State won't pay for hi s circumcision." At his request, I removed his setons. He developed 2 new spots of infection in April,. Dr. Cleveland drained an abscess i n May,. His drainage has persisted but has decreased. He wears pads. He has i ntermittent 5/10 perineal pain with sitting. No fevers, chills, or urinary retention. He comes for urgent evaluation. Past Medical History Diagnosis Date Blood clot in vein 2012 or 2013 left calf DVT? on warfarin Diabetes (HCC) Yeast infection near penis, uncircumcised Past Surgical History Procedure Laterality Date Left elbow surgery as a child Drainage of left pilonidal abscess (seton)/posterior hidradenitis (right setons x3) Allergies Allergen Reactions Morphine Headache and Pruritus Current Outpatient Prescriptions Medication Sig glipiZIDE 5 mg oral tablet Take 5 mg by mouth once daily. linagliptin 5 mg oral tablet Take 5 mg by mouth once daily. metFORMIN 1,000 mg oral tablet Take 1,000 mg by mouth two times daily. MULTIVITAMIN ORAL Take 1 tablet by mouth once daily. oxyCODONE, immediate release, 5 mg oral tablet Take 5 mg by mouth three times daily as needed. Potassium Gluconate 595 (99) mg oral tablet Take 595 mg by mouth every two days. PSYLLIUM SEED, WITH DEXTROSE, (FIBER ORAL) Take by mouth. Fiber gummies 2 once a day varenicline (CHANTIX) 0.5 mg (11)- 1 mg (42) oral tablets,dose pack Take 0.5 mg daily f or 3 days, then increase to 0.5 mg twice daily for 4 days, then increase to 1 mg twice daily . No current facility-administered medications for this visit. 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 Intermittent LUQ abdominal tenderness when he eats too much. See HPI. A ll other systems reviewed and are negative. Physical exam: BP 153/84 | Pulse 100 | Temp (Src) 36.7 C (98 F) (Oral) | RR 19 | Ht 1. 854 m (6' 1") | Wt 156 kg (344 lb) | BMI 45.39 kg/(m^2) General: well-developed, morbidly obese (BMI 45.4) male in NAD Mental Status: A&O x 4 Neurologic: moves all extremities well HEENT: anicteric sclera, EOMI, no facial sinus tenderness, oropharynx benign Neck: supple, no LAD, no thyromegaly Lungs: clear to auscultation bilaterally Heart: regular rate and rhythm Abd: soft, nontender, nondistended Back: no spinal or costovertebral tenderness Groins: no inguinal lymphadenopathy Vascular: 2+ femoral pulses Extremities: no calf tenderness, no clubbing/cyanosis/edema Perineum: posterior anal margin draining hidradenitis Rectal: deferred With this Return/Re-evaluation patient, I spent 24 minutes of dsdg-op-hrua time, of which m ore than half the time was spent in counseling. 3 minute document review [facility] umented in this encounter Plan of Treatment Not on filedocumented as of this encounter Visit Diagnoses + + | Diagnosis | + + | Hidradenitis suppurativa of anus - Primary Hidradenitis | + + | Encounter for smoking cessation counseling Counseling on substance use and abuse | + + documented in this encounter
--- OUTSIDE RECORDS SUMMARY | ~2019-01-04 | XMS | Encounter Summary ---
Demographics + + + | Address | [address] | | | [place] [address] | + + + | Home Phone | | + + + | Preferred Language | Unknown | + + + | Marital Status | Single | + + + | Sikhism Affiliation | NRP | + + + | Race | White | + + + | Ethnic Group | Not or | + + + Author + + + | Author | [facility] | + + + | Organization | [facility] | + + + | [...] Team Providers + +------+ + | Care Egg Grader Name | Role | Phone | + +------+ + | Ana Ascencio NP | PCP | Unavailable | + +------+ + Reason for Visit + + + | Reason | Comments | + + + | Follow-up encounter | | + + + | Abscess | | + + + | Hidradenitis | | | suppurativa | | + + + Consultation (Routine) +--------+--------+ + + + + | Status | Reason | Specialty | Diagnoses / | Referred By | Referred To | | | | | Procedures | Contact | Contact | +--------+--------+ + + + + | Closed | | Surgery | Diagnoses | Carrie, | Cinthia Nava, | | | | | Pilonidal | Devan Portillo MD | [address] | | | | | cyst Rectal | [place] | [address] | | | | | pain | SURGICAL | [address] | | | | | | CLINIC [facility] | [place], [place] | | | | | | [address] | [address] | [address] | | | [address] | Phone: | | | | | | [place], | [phone] | | | | | | [place] [address] | Fax: | | | | | | Phone: | [phone] | | | | | | [phone] | | | | | | | Fax: | | | | | | | [phone] | | +--------+--------+ + + + + Encounter Details +--------+---------+ + + + | Date | Type | Department | Care Team | Description | +--------+---------+ + + + | 09/25/ | Office | Digestive Health | Cinthia Nava MD | Hidradenitis | | 2016 | Visit | Center at [facility] [address] | [address] | suppurativa of anus | | | | [address] | [address] [place], | (Primary Dx); | | | | Mailcode: [place] | [place] [address] | Pilonidal cyst with | | | | for Health and | [phone] | abscess | | | | [facility], [facility] 2 | | | | | | [place], [place] | | | | | | [address] | | | | | | [phone] | | | +--------+---------+ + + + [...] + + + | Blood Pressure | 127/60 | 09/25/2015 3:18 PM | | | | | PST | | + + + + + | Pulse | 78 | 09/25/2015 3:18 PM | | | | | PST | | + + + + + | Temperature | 36.4 C (97.5 F) | 09/25/2015 3:18 PM | | | | | PST | | + + + + + | Respiratory Rate | 18 | 09/25/2015 3:18 PM | | | | | PST | | + + + + + | Oxygen Saturation | 95% | 09/25/2015 3:18 PM | | | | | PST | | + + + + + | Inhaled Oxygen | - | - | | | Concentration | | | | + + + + + | Weight | 155.7 kg (343 lb 3.2 | 09/25/2015 3:18 PM | | | | oz) | PST | | + + + + + | Height | 185.4 cm (6' 1") | 09/25/2015 3:18 PM | | | | | PST | | + + + + + | Body Mass Index | 45.28 | 09/25/2015 3:18 PM | | | | | PST | | + + + + + documented in this encounter Patient Instructions Patient Instructions Cinthia Nava MD - 09/25/2015 3:48 PM PSTPlan: Leave setons for now. See me back in 6-8 weeks. documented in this encounter Progress Notes ThelmaEmy - 09/25/2015 3:46 PM PSTExamination chaperoned by Emy RENEE. inthia Nava MD - 09/25/19 12:57 PM PSTCOLON AND RECTAL SURGERY Clinic Note [...] hidradenitis (right setons x3) on 09/12/15 Plan: Leave setons for now. See me back in 6-8 weeks. We released him to work tomorrow. I wrote him a letter. Subjective: admitted 09/10/15 drainage of left pilonidal abscess (seton)/ posterior hidradenitis (right setons x3) on 09/12/15 discharged on 09/13/15 saw hematology today. His pain has improved significantly overall. However, he is bothered by the setons. He thin ks they were contributing to his post-op pain. Taking pain meds occasionally. No anal pain n ow, since oxycodone 15 mg this morning. Took 15 mg of oxycodone yesterday. No fevers, ch ills, or urinary retention. Still having some yellow tinted drainage. 1 BM every 2-3 days. He finished his lovenox. Recent skin rash resolving. All other systems reviewed and are n egative. He comes for further followup. Objective: BP 127/60 | Pulse 78 | Temp (Src) 36.4 C (97.5 F) (Oral) | RR 18 | Ht 1.854 m (6' 1") | Wt 155.674 kg (343 lb 3.2 oz) | SpO2 95% | BMI 45.29 kg/(m^2) Perineum: seton in left pilonidal abscess, 3 right-sided setons bilateral superficial wound without erythema, fluctuance, or crepitus Rectal: deferred at his request With this Return/Re-evaluation patient, I spent 19 minutes of udok-ap-zzsb time, of which m ore than half the time was spent in counseling. 13 minute document review do cumented in this encounter Plan of Treatment Not on filedocumented as of this encounter Visit Diagnoses + + | Diagnosis | + + | Hidradenitis suppurativa of anus - Primary Hidradenitis | + + | Pilonidal cyst with abscess | + + documented in this encounter
--- OUTSIDE RECORDS SUMMARY | ~2019-01-04 | XMS | Encounter Summary ---
Demographics + + + | Address | [address] | | | [place] [address] | + + + | Home Phone [...] Author + + + | Author | [facility] | + + + | Organization | [facility] | + + + | Address [...] Team Providers + +------+ + | Care Tank House Operator Name | Role | Phone | + [...] | Pilonidal | Devan Portillo MD | [address] | | | | | cyst Rectal | [place] | [address] | | | | | pain | SURGICAL | [address] | | | | | | CLINIC [facility] | [place], [place] | | | | | | [address] | [address] | | | | | | [address]VE | Phone: | | | | | | [place], | [phone] | | | | | | [place] [address] | Fax: | | | | | | Phone: | [phone] | | | | | | [phone] | | | | | | | Fax: | | | | | | | [phone] | | +--------+--------+ + + + + Encounter Details +--------+---------+ + + + | Date | Type | Department | Care Team | Description | +--------+---------+ + + + | 09/25/ | Office | Digestive Health | Cinthia Nava MD | Hidradenitis | | 2016 | Visit | Center at [facility] [address] | [address] | suppurativa of anus | | | | [address] | [address] [place], | (Primary Dx); | | | | Mailcode: [place] | [place] [address] | Pilonidal cyst with | | | | for Health and | [phone] | abscess | | | | [facility], [facility] 2 | | | | | | [place], [place] | | | | | | [address] | | | | | | [phone] | | | +--------+---------+ + + + [...] in this encounter Patient Instructions Patient Instructions Cinthai Nava MD - 09/25/2015 3:48 PM PSTPlan: [...] Return/Re-evaluation patient, I spent 19 minutes of utmh-rh-rydl time, of which m ore than half [...]
--- OUTSIDE RECORDS SUMMARY | ~2019-01-04 | XMS | Encounter Summary ---
Demographics + + + | Address | [address] | | | [place] [address] | + + + | Home Phone | | + + + | Preferred Language | Unknown | + + + | Marital Status | Single | + + + | Cheondoism Affiliation | NRP | + + + | Race | White | + + + | Ethnic Group | Not or | + + + Author + + + | Author | [facility] | + + + | Organization | [facility] | + + + | Address [...] Team Providers + +------+ + | Care Property And Casualty Insurance Agent Name | Role | Phone | + +------+ + | Ana Ascencio NP | PCP | Unavailable | + +------+ + Reason for Visit + + + | Reason | Comments | + + + | Question | Regarding seton | + + + Encounter Details +--------+ + + + + | Date | Type | Department | Care Team | Description | +--------+ + + + + | 10/10/ | Telephone | Digestive Health | Cinthia Nava MD | Question (Regarding | | 2016 | | Center at [facility] [address] | [address] | [place]) | | | | [address] | [address] [place], | | | | | Mailcode: [place] | [place] [address] | | | | | for Health and | [phone] | | | | | [facility] 2 | | | | | | [place], [place] | | | | | | [address] | | | | | | [phone] | | | +--------+ + + + [...]
--- OUTSIDE RECORDS SUMMARY | ~2019-01-04 | XMS | Encounter Summary ---
Demographics + + + | Address | [address] | | | [place] [address] | + + + | Home Phone | | + + + | Preferred Language | Unknown | + + + | Marital Status | Single | + + + | Orthodoxy Affiliation | NRP | + + + | Race | White | + + + | Ethnic Group | Not or | + + + Author + + + | Author | [facility] | + + + | Organization | [facility] | + + + | Address | [...] Team Providers + +------+ + | Care Corrugator Operator Name | Role | Phone | + +------+ + | No Pcp Per Patient | PCP | Unavailable | + +------+ + Encounter Details +--------+ + + + + | Date | Type | Department | Care Team | Description | +--------+ + + + + | 07/13/ | Pharmacy | [facility] | | | | 2015 | Visit | [facility] | | | | | | [address] | | | | | | [place], [place] | | | | | | [address] | | | | | | [phone] | | | +--------+ + + + [...]
--- OUTSIDE RECORDS SUMMARY | ~2019-01-04 | XMS | Encounter Summary ---
Demographics + + + | Address | [address] | | | [place] [address] | + + + | Home Phone | | + + + | Preferred Language | Unknown | + + + | Marital Status | Single | + + + | Oriental Orthodox Affiliation | NRP | + + + | Race | White | + + + | Ethnic Group | Not or | + + + Author + + + | Author | [facility] | + + + | Organization | [facility] | + + + | Address [...] Team Providers + +------+ + | Care Remelt Sugar Boiler Name | Role | Phone | + +------+ + | Ana Ascencio NP | PCP | Unavailable | + +------+ + Reason for Visit + + + | Reason | Comments | + + + | Referral To Surgery | | | - General | | + + + Encounter Details +--------+ + + + + | Date | Type | Department | Care Team | Description | +--------+ + + + + | 09/03/ | Abstract | Digestive Health | Clinic, Surgery | Referral To Surgery | | 2015 | | Center at [facility] [address] | | - General | | | | [address] | | | | | | Mailcode: Center | | | | | | for Health and | | | | | | [facility] 2 | | | | | | [place], [place] | | | | | | [address] | | | | | | [phone] | | | +--------+ + + + + Social History + +-------+ +--------+------+ | Tobacco Use | Types | Packs/Day | Years | Date | | | | | Used | | + +-------+ +--------+------+ | Never Assessed | | | | | + +-------+ +--------+------+ + + + | Sex Assigned at [...]
--- OUTSIDE RECORDS SUMMARY | ~2019-01-04 | XMS | Clinical Summary ---
Demographics + + + | Address | [address] | | | [place] [address] | + + + | Home Phone | | + + + | Preferred Language | Unknown | + + + | Marital Status | Legally | + + + | Muslim Affiliation | Unknown | + + + | Race | Unknown | + + + | Ethnic Group | Unknown | + + + Author + + + | Author | [facility] [employer] | + + + | Organization | [facility] [employer] | + + + | Address [...] Team Providers + +------+ + | Care Grants Analyst Name | Role | Phone | + [...] +------+-------+ + | MEDICAID | [place] | [id number] | | | [address] | | | [place] | | | | [place] | | | [place] | | | | [address] | | | G[employer]ING [employer]ATION [employer]PER | | | | | + +--------+ [...] | [birth year] | Home: | [address] | | | al/Fam | | 1980 | [phone] [place] [address] | | | [place] | | | [phone] | | + +--------+ +--------+ + +
--- OUTSIDE RECORDS SUMMARY | ~2019-01-04 | XMS | Encounter Summary ---
Demographics + + + | Address | [address] | | | [place] [address] | + + + | Home Phone [...] Author + + + | Author | [facility] | + + + | Organization | [facility] | + + + | [...] Team Providers + +------+ + | Care Cabinetmaker Maintenance Name | Role | Phone | + [...] | | | | | | | [facility] | | | | | | | [facility] and | | | | | | | Healing, | | | | | | | Building [address] | | | | | | | [place], [place] | | | | | | | [address] | | | | | | | Phone: | | | | | | | [phone] | | | | | | | Fax: | | | | | | | [phone] | +--------+--------+ + + + + Encounter Details +--------+---------+ + + + | Date | Type | Department | Care Team | Description | +--------+---------+ + + + | / | Office | Digestive Health | Cinthia Nava MD | Hidradenitis | | 2016 | Visit | Center at [facility] [address] | [address] | suppurativa of anus | | | | [address] | [address] [place], | (Primary Dx); | | | | Mailcode: [place] | [place] [address] | Pilonidal cyst with | | | | for Health and | [phone] | abscess | | | | [facility] | | | | | | [place], [place] | | | | | | [address] | | | | | | [phone] | | | +--------+---------+ + + + [...] Return/Re-evaluation patient, I spent 14 minutes of svup-dl-xmoy time, of which m ore than half [...]
--- OUTSIDE RECORDS SUMMARY | ~2019-01-04 | XMS | Encounter Summary ---
Demographics + + + | Address | [address] | | | [place] [address] | + + + | Home Phone | | + + + | Preferred Language | Unknown | + + + | Marital Status | Single | + + + | Sikh Affiliation | NRP | + + + | Race | White | + + + | Ethnic Group | Not or | + + + Author + + + | Author | [facility] | + + + | Organization | [facility] | + + + | Address [...] Team Providers + +------+ + | Care Towel Hemmer Name | Role | Phone | + +------+ + | Ana Ascencio NP | PCP | Unavailable | + +------+ + Reason for Visit + + + | Reason | Comments | + + + | Post-discharge | | | follow-up | | + + + Encounter Details +--------+ + + + + | Date | Type | Department | Care Team | Description | +--------+ + + + + | 09/16/ | Telephone | Digestive Health | Sully Ovalle, | Post-discharge | | 2016 | | Center at [facility] [address] | [facility] [address] [facility] | follow-up | | | | [address] | [address] | | | | | Mailcode: Center | [place], [place] | | | | | for Health and | [address] | | | | | [facility] 2 | [phone] | | | | | [place], [place] | | | | | | [address] | | | | | | [phone] | | | +--------+ + + + [...]
--- OUTSIDE RECORDS SUMMARY | ~2019-01-04 | XMS | Encounter Summary ---
Demographics + + + | Address | [address] | | | [place] [address] | + + + | Home Phone | | + + + | Preferred Language | Unknown | + + + | Marital Status | Single | + + + | Yarsani Affiliation | NRP | + + + | Race | White | + + + | Ethnic Group | Not or | + + + Author + + + | Author | [facility] | + + + | Organization | [facility] | + + + | Address | [...] Team Providers + +------+ + | Care Sole Seamer Name | Role | Phone | + +------+ + | Ana Ascencio NP | PCP | Unavailable | + +------+ + Reason for Visit + + + | Reason | Comments | + + + | New patient | | | consultation | | + + + | Abscess | | + + + AUTH/CERT +--------+--------+ + + + + | [...] Description | +--------+---------+ + + + | 09/10/ | Office | Digestive Health | Cinthia Nava MD | Rectal pain (Primary | | 2016 | Visit | [place] [facility] [address] | [address] | Dx) | | | | [address] | [address] [place], | | | | | Mailcode: [place] | [place] [address] | | | | | for Health and | [phone] | | | | | [facility], [facility] 2 | | | | | | [place], [place] | | | | | | [address] | | | | | | [phone] | | | +--------+---------+ + + + [...] + + + | Blood Pressure | 129/73 | 09/10/2015 9:22 AM | | | | | PST | | + + + + + | Pulse | 82 | 09/10/2015 9:22 AM | | | | | PST | | + + + + + | Temperature | 36.4 C (97.6 F) | 09/10/2015 9:22 AM | | | | | PST | | + + + + + | Respiratory Rate | 18 | 09/10/2015 9:22 AM | | | | | PST | | + + + + + | Oxygen Saturation | 98% | 09/10/2015 9:22 AM | | | | | PST | | + + + + + | Inhaled Oxygen | - | - | | | Concentration | | | | + + + + + | Weight | 153.7 kg (338 lb | 09/10/2015 9:22 AM | | | | 12.8 oz) | PST | | + + + + + | Height | 185.4 cm (6' 1") | 09/10/2015 9:22 AM | | | | | PST | | + + + + + | Body Mass Index | 44.7 | 09/10/2015 9:22 AM | | | | | PST | | + + + + + documented in this encounter Patient Instructions Patient Instructions Cinthia Nava MD - 09/10/2015 10:24 AM PSTPlan: Admit to me for severe rectal pain. LE dopplers (r/o persistent left DVT). Control blood sugars (usually run 200-300). Hospitalist consult for glycemic control. Anorectal exam under anesthesia, possible drainage, possible seton, possible fistulotomy on 09/26/14. Prone heri-knife position. Fleets enema the morning of surgery. NPO after midnight prior to surgery. After a PARQ conference in which the risks including but not limited to bleeding, infection , anastomotic leak (<4%), pneumonia, UTI, recurrence, fecal incontinence, DVT, PE, PR, stroke, and were discussed, he wished to proceed with the above plan. documented in this encounter Progress Notes Susana Quach RN - 09/10/2015 10:55 AM PSTCalled and gave SBAR report to RN on 14A. Electr onically signed by Susana Quach RN at 09/10/2015 10:59 AM PSTAlAl mims MA - 09/10/2015 9:54 AM PSTExamination chaperoned by Al Palm MA. Cinthia Gentile MD - 09/10/2015 9:21 AM PSTFormatting of this no te might be different from the original. COLON AND RECTAL SURGERY History and Physical New Patient Assessment: 34 y.o. morbidly obese (BMI 44.7) male with prior yeast infection near penis prior left calf DVT diabetes/1 ppd x 24 years smoker Plan: Admit to me for severe rectal pain. LE dopplers (r/o persistent left DVT). Control blood sugars (usually run 200-300). Hospitalist consult for glycemic control. Anorectal exam under anesthesia, possible drainage, possible seton, possible fistulotomy on 09/26/14. Prone heri-knife position. Fleets enema the morning of surgery. NPO after midnight prior to surgery. After a PARQ conference in which the risks including but not limited to bleeding, infection , anastomotic leak (<4%), pneumonia, UTI, recurrence, fecal incontinence, DVT, PE, PR, stroke, and were discussed, he wished to proceed with the above plan. Chief Complaint: 34 y.o. morbidly obese male with intermittent lower back swelling, pain, a nd drainage since ~2005 History of Present Illness: Since 2005, he has had constant drainage from the left "crack of his butt". That can look yellow or white. Intermittently (once a week to once a month ), he has a flare. During that flare, he would have lower back swelling and 10/10 sharp "l julio césar a knife" lower back pain. Occasionally, the pain will radiate to his legs. This pain worsens with sitting. It improves if he minimizes pressure on it. He currently has 10/10 perianal/lower back pain. No fevers or chills. With an over the counter [employer] laxative q day, he has 1-2 BM's/day. No rectal bleeding. Good fecal continence; he only lost stool once on a long road trip (3-6 months ago). He was recently (~08/27/15) seen in an OSH ER. He was disimpacted under IV conscious sedatio n. On ~08/29/15, he saw Dr. Devan Butler, who diagnosed him with pilonidal disease. He was r eferred to me for further evaluation. Note: never had a colonoscopy. Never had any surgery for this condition or any anorectal surgery. Cbg's run 200-300. Past Medical History Diagnosis Date Diabetes (HCC) Blood clot in vein 2012 or 2013 left calf DVT? on warfarin Yeast infection near penis, uncircumcised Past Surgical History Procedure Laterality Date Left elbow surgery as a child Allergies Allergen Reactions Morphine Headache and Pruritis Current Outpatient Prescriptions Medication Sig glipiZIDE 5 mg oral tablet Take 5 mg by mouth once daily. linagliptin 5 mg oral tablet Take 5 mg by mouth once daily. metFORMIN 1,000 mg oral tablet Take 1,000 mg by mouth two times daily. MULTIVITAMIN ORAL Take 1 tablet by mouth once daily. oxyCODONE-acetaminophen 5-325 mg oral tablet Take 1 tablet by mouth every four hours as needed. Not to exceed 10 tablets per any 24 hour period. Potassium Gluconate 595 (99) mg oral tablet Take 595 mg by mouth every two days. PSYLLIUM SEED, WITH DEXTROSE, (FIBER ORAL) Take by mouth. Fiber gummies 2 once a day No current facility-administered medications for this visit. 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 No feve rs, chills, cough, shortness of breath, chest pain, chest pressure, or abdominal pain. See HPI. All other systems reviewed and are negative. Physical exam: BP 129/73 | Pulse 82 | Temp (Src) 36.4 C (97.6 F) (Oral) | RR 18 | Ht 1 .854 m (6' 1") | Wt 153.679 kg (338 lb 12.8 oz) | SpO2 98% | BMI 44.71 kg/(m^2) General: well-developed, morbidly obese (BMI 44.7) male in NAD Mental Status: A&O x 4 Neurologic: moves all extremities well HEENT: anicteric sclera, EOMI, no facial sinus tenderness, oropharynx benign Neck: supple, no LAD, no thyromegaly Lungs: clear to auscultation bilaterally Heart: regular rate and rhythm Abd: soft, nontender, nondistended Back: lumbar spinal but no other spinal or costovertebral tenderness Groins: no inguinal lymphadenopathy Vascular: 2+ femoral pulses Extremities: no calf tenderness, no clubbing/cyanosis/edema Perineum: pilonidal, left buttock, posterior and bilateral posterior anal margin sinuses dr suárez pus no erythema, fluctuance, or crepitus areas very tender Rectal: Deferred at his request With this New Referral patient, I spent 48 minutes of mkoh-mo-ajjd time, of which more than half the time was spent in counseling. 10 minute document review do cumented in this encounter Plan of Treatment Not on filedocumented as of this encounter Visit Diagnoses + + | Diagnosis | + + | Rectal pain - Primary Anal or rectal pain | + + documented in this encounter
--- OUTSIDE RECORDS SUMMARY | ~2019-01-04 | XMS | Encounter Summary ---
Demographics + + + | Address | [address] | | | [place] [address] | + + + | Home Phone | | + + + | Preferred Language | Unknown | + + + | Marital Status | Single | + + + | Zoroastrianism Affiliation | NRP | + + + | Race | White | + + + | Ethnic Group | Not or | + + + Author + + + | Author | [facility] | + + + | Organization | [facility] | + + [...] Team Providers + +------+ + | Care Relief Mate Name | Role | Phone | + [...] | | | | | | | [facility] for | | | | | | | Health and | | | | | | | Healing, | | | | | | | Building [address] | | | | | | | [place], [place] | | | | | | | [address] | | | | | | | Phone: | | | | | | | [phone] | | | | | | | Fax: | | | | | | | [phone] | +--------+--------+ + + + + Encounter [...] | [address] | [address] [place], | (Primary Dx); | | | | Mailcode: Center | [place] [address] | Encounter for | | | | for Health and | [phone] | smoking cessation | | | | [facility], [facility] 2 | | counseling | | | | [place], [place] | | | | | | [address] | | | | | | [phone] | | | +--------+---------+ + + + [...] to do. The experts recommend the [employer] to Quitting. o Call the [place] Tobacco Quitline at: 2-QUIT NOW or visit the website www.[place] TripShake.org. A Quitline specialist will talk to you and help you decide the best way to quit. Th e Quitline may also be able to send you FREE medications. o For help online: Centers for Disease Control website at www.cdc.gov/tobacco or [facility] [place] website for live on-line assistance for smokers at www.smokefree.gov [employer] to Quitting These four keys can help withdrawal and help you successfully quit. 1. Set a specific date to quit. 2. Take the stop smoking medication your doctor recommends. 3. Get help and support from friends, family, and your health professional. 4. Learn how to stay quit. [employer] to Quitting [place] 1: SET A QUIT [...] out internet quit sites. o Call the [place] Tobacco Quitline at 5-222-Quit Now. [place] 4: LEARN HOW TO STAY [...] you are feeling withdrawal. Following the [employer] to Quitting can help smokers make withdrawal [...] willing to stick with it! 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 3 minute document review [facility] umented in this encounter Plan of Treatment Not on filedocumented as of this encounter Visit Diagnoses + + | Diagnosis | + + | Hidradenitis suppurativa of anus - Primary Hidradenitis | + + | Encounter for smoking cessation counseling Counseling on substance use and abuse | + + documented in this encounter
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
--- OUTSIDE RECORDS SUMMARY | ~2019-01-04 | XMS | Encounter Summary ---
Demographics + + + | Address | [address] | | | [place] [address] | + + + | Home Phone [...] + + + | Author | [facility] | + + + | Organization | [facility] | + + + | Address | [...] Providers + +------+ + | Care Production Machine Tender Name | Role | Phone | [...] | +--------+ + + + + | 09/12/ | Anesthesia | 6A Intra Op [facility] | Rosalva Steinberg, | | | 2015 | Event | [facility] | MD | | | | | Admitting Desk | | | | | | Located on the 9 | | | | | | [address] | | | | | | [facility] | | | | | | [place], [place] | | | | | | [address] | | | +--------+ + + + + Anesthesia Record + + + + + | Procedure Name | Responsible | Anesthesia Start | Anesthesia Stop Time | | | Anesthesiologist | Time | | + + + + + | ANAL FISTULOTOMY | Dominik Antunez, | 09/12/15 1053 | 09/12/15 1237 | | (N/A Trixie) | PhD LUIS M | | | + + + + + +----+---+ + + | Da | T | Event | Comment | | te | i | | | | | m | | | | | e | | | +----+---+ + + | 01 | 1 | Eq Check | Anesthesia machine checked Equipment verified | | /2 | 0 | | | | 1/ | 2 | | | | 20 | 9 | | | | 16 | | | | +----+---+ + + | | 1 | Pt. Check | Prior to anesthesia start, pt. Identified, examined, chart | | | 0 | | reviewed, PARLopez held, anesthetic plan made or approved by | | | 4 | | attending anesthesiologist. NPO status confirmed as appropriate | | | 3 | | for procedure Preoperative evaluation: unchanged | +----+---+ + + | | 1 | An Start | | | | 0 | | | | | 5 | | | | | 3 | | | +----+---+ + + | | 1 | | | | | 0 | | | | | 5 | | | | | 5 | | | +----+---+ + + | | 1 | An Start | | | | 0 | Data | | | | 5 | | | | | 7 | | | +----+---+ + + | | 1 | Vitals | Monitors applied Vital signs checked Patient ready for anesthesia | | | 0 | Checked | | | | 5 | | | | | 9 | | | +----+---+ + + | | 1 | Std. Airway | | | | 1 | Mgt. | | | | 0 | | | | | 5 | | | +----+---+ + + | | 1 | Ready | | | | 1 | | | | | 0 | | | | | 6 | | | +----+---+ + + | | 1 | Abx held | Abx held for Medical Reason: Contraindicated or already receiving | | | 1 | Medical or | antibiotics | | | 1 | Surgical | | | | 7 | Reason | | +----+---+ + + | | 1 | Pause | | | | 1 | | | | | 2 | | | | | 7 | | | +----+---+ + + | | 1 | Incision | | | | 1 | | | | | 2 | | | | | 8 | | | +----+---+ + + | | 1 | Local | | | | 2 | Anesthetic | | | | 1 | by Surgeon | | | | 4 | | | +----+---+ + + | | 1 | Surgery end | | | | 2 | | | | | 2 | | | | | 3 | | | +----+---+ + + | | 1 | An Extubate | Neuromuscular function Intact. Pharynx suctioned. Patient obeys | | | 2 | | commands. Adequate pulmonary mechanics. | | | 2 | | | | | 7 | | | +----+---+ + + | | 1 | an stop | | | | 2 | data | | | | 2 | | | | | 9 | | | +----+---+ + + | | 1 | Anesthesia | | | | 2 | End | | | | 3 | | | | | 7 | | | +----+---+ + + +------+ | Meds | +------+ + +---------+ | Name | Total | + +---------+ | midazolam | 2 mg | + +---------+ | succinylcholine | 160 mg | + +---------+ | fentaNYL | 150 mcg | + +---------+ | lidocaine 2% | 40 mg | + +---------+ | propofol | 200 mg | + +---------+ | ondansetron | 4 mg | + +---------+ | PHENYLEPHrine | 150 mcg | + +---------+ | lactated ringers IV | 200 mL | + +---------+ + + | Name | + + | O2 FR Avance (Total Liters) | + + | Insp Sevo | + + | Et Sevo | + + + + | No blood administrations on file. | + + +--------+ + + + | Type | Details | Placement | Removal | +--------+ + + + | Periph | 09/10/15; 1430; Left; Forearm; 20 | 09/10/15 1430 by | 09/12/15 2332 by Amanda | | eral | g; 09/12/15; 2332; Per order | Stevie Becerra, | Hussain, RN | | IV | | RN | | +--------+ + + + | Wound | 09/10/15; 1506; Yes; Left; Lower; | 09/10/15 1506 by | 06/11/17 0659 by | | | gluteal; Undetermined; 06/11/17 | Stevie Becerra, | Discontinued After | | | (Automatic cleanup per RA | RN | Discharge | | | 3006--contact admin for | | | | | questions.); 0659 (Automatic | | | | | cleanup per RA 3006--contact | | | | | admin for questions.) | | | +--------+ + + + | Incisi | 09/12/15; 1147; Dr. Cinthia Nava; | 09/12/15 1147 by | 06/11/17 0659 by | | on | Anterior; perirectal; 06/11/17 | Carina Power RN | Discontinued After | | | (Automatic cleanup per RA | | Discharge | | | 3006--contact admin for | | | | | questions.); 0659 (Automatic | | | | | cleanup per RA 3006--contact | | | | | admin for questions.) | | | +--------+ + + + documented in this encounter Social History + + + +--------+------+ | [...] Visit Diagnoses Not on filedocumented in this encounter Administered Medications + +--------+ +--------+------+------+ | Medication Order | MAR | Action | Dose | Rate | Site | | | Action | Date | | | | + +--------+ +--------+------+------+ | fentaNYL citrate (PF) | Given | 09/12/19 | 50 mcg | | | | (SUBLIMAZE) injection | | 16 11:55 | | | | | INTRAPROCEDURE PRN, Starting Argenis | | AM PST | | | | | 09/12/15 at 1105, Until Argenis | | | | | | | 09/12/15 at 1229, sedation | | | | | | + +--------+ +--------+------+------+ +-------+ +--------+---+---+ | Given | 09/12/19 | 25 mcg | | | | | 16 11:42 | | | | | | AM PST | | | | +-------+ +--------+---+---+ | Given | 09/12/19 | 25 mcg | | | | | 16 11:36 | | | | | | AM PST | | | | +-------+ +--------+---+---+ +---+---+ | | | +---+---+ + +---------+ [...] +---+---+---+ +---+---+ | | | +---+---+ + +-------+ +-------+---+---+ | lidocaine PF (XYLOCAINE MPF) 20 | Given | 09/12/19 | 40 mg | | | | mg/mL (2 %) injection | | 16 11:05 | | | | | INTRAPROCEDURE PRN, Starting Argenis | | AM PST | | | | | 09/12/15 at 1105, Until Argenis | | | | | | | 09/12/15 at 1229 | | | | | | + +-------+ +-------+---+---+ +---+---+ | | | +---+---+ + +-------+ +------+---+---+ | midazolam (VERSED) injection | Given | 09/12/19 | 2 mg | | | | INTRAPROCEDURE PRN, Starting Argenis | | 16 10:57 | | | | | 09/12/15 at 1057, Until Argenis | | AM PST | | | | | 09/12/15 at 1229, sedation | | | | | | + +-------+ +------+---+---+ +---+---+ | | | +---+---+ + +-------+ +------+---+---+ | ondansetron (ZOFRAN) injection | Given | 09/12/19 | 4 mg | | | | INTRAPROCEDURE PRN, Starting Argenis | | 16 11:29 | | | | | 09/12/15 at 1129, Until Argenis | | AM PST | | | | | 09/12/15 at 1229 | | | | | | + +-------+ +------+---+---+ +---+---+ | | | +---+---+ + +-------+ +---------+---+---+ | PHENYLEPHrine 100 mcg/mL IV | Given | 09/12/19 | 150 mcg | | | | syringe INTRAPROCEDURE PRN, | | 16 11:08 | | | | | Starting Argenis 09/12/15 at 1108, | | AM PST | | | | | Until Argenis 09/12/15 at 1229, blood | | | | | | | pressure | | | | | | + +-------+ +---------+---+---+ +---+---+ | | | +---+---+ + +-------+ +--------+---+---+ | propofol INTRAPROCEDURE PRN, | Given | 09/12/19 | 200 mg | | | | Starting Argenis 09/12/15 at 1105, | | 16 11:05 | | | | | Until Argenis 09/12/15 at 1229 | | AM PST | | | | + +-------+ +--------+---+---+ +---+---+ | | | +---+---+ + +-------+ +--------+---+---+ | SUCCINYLCHOLINE CHLORIDE 20 | Given | 09/12/19 | 160 mg | | | | MG/ML INJ (PROSED/RSI) | | 16 11:05 | | | | | INTRAPROCEDURE PRN, Starting Argenis | | AM PST | | | | | 09/12/15 at 1105, Until Argenis | | | | | | | 09/12/15 at 1229, Neuromuscular | | | | | | | block | | | | | | + +-------+ +--------+---+---+ +---+---+ | | | +---+---+ documented in this encounter"
--- OUTSIDE RECORDS SUMMARY | ~2019-01-04 | XMS | Encounter Summary ---
Demographics + + + | Address | [address] | | | [place] [address] | + + + | Home Phone [...] Author + + + | Author | [facility] | + + + | Organization | [facility] | + + + | [...] Team Providers + +------+ + | Care Billing Services Manager Name | Role | Phone | + +------+ + | Ana Ascencio BALLAST CLEANING MACHINE OPERATOR | PCP | Unavailable | + +------+ + Reason for Visit + + + | Reason | Comments | + + + | No Show Encounter - | | | Disregard | | + + + | Hidradenitis | | | suppurativa | | + + + | Cyst | | + + + Office Visit [...] | | | | | | | [facility] | | [facility] | | | | | | | [facility], | | | | | | | Building [address] | | | | | | | [place], [place] | | | | | | | [address] | | | | | | | Phone: | | | | | | | [phone] | | | | | | | Fax: | | | | | | | [phone] | +--------+--------+ + + + + Encounter Details +--------+---------+ + + + | Date | Type | Department | Care Team | Description | +--------+---------+ + + + | 11/24/ | Office | [facility] | Cinthia Nava MD | No-show for | | 2015 | Visit | Center at [facility] [address] | [address] | appointment (Primary | | | | [address] | [address] [place], | Dx) | | | | Mailcode: [place] | [place] [address] | | | | | for Health and | [phone] | | | | | [facility] [address] | | | | | | [place], [place] | | | | | | [address] | | | | | | [phone] | | | +--------+---------+ + + + [...] documented as of this encounter Progress Notes Cinthia Nava MD - 11/25/2015 11:13 AM PDTCOLON AND RECTAL SURGERY Clinic Note Established Patient [...] hidradenitis (right setons x3) on 09/12/15 Plan: Follow up with me as needed Subjective: admitted 09/10/15 drainage of left pilonidal abscess (seton)/posterior hidradenitis (right setons x3) on 09/12/15 discharged on 09/13/15 last seen by me on 10/21/15. No show for clinic today. [facility] Plan of Treatment Not on filedocumented as of this encounter Visit Diagnoses + + | Diagnosis | + + | No-show for appointment - Primary | + + documented in this encounter"
--- OUTSIDE RECORDS SUMMARY | ~2019-01-04 | XMS | Encounter Summary ---
Demographics + + + | Address | [address] | | | [place] [address] | + + + | Home Phone [...] Author + + + | Author | [facility] | + + + | Organization | [facility] | + + + | Address [...] Team Providers + +------+ + | Care River Boat Captain Name | Role | Phone | + +------+ + | No Pcp Per Patient | PCP | Unavailable | + +------+ + Reason for Referral Consult to [place] (Routine) +--------+--------+ + + + + | Status | Reason | Specialty | Diagnoses / | Referred By | Referred To | | | | | Procedures | Contact | Contact | +--------+--------+ + + + + | Closed | | Surgery | Diagnoses | Cinthia Nava, | Cinthia Nava, | | | | | Perianal | [address] | | | | | abscess | [address] | | | | | Procedures | [address] | [address] | | | | | REQUEST TO | [place], [place] | [place] | | | | | SURGERY | [address] | [address] | | | | | PHOTOENGRAVING HELPER | Phone: | Phone: | | | | | SC DRAINAGE | [phone] | [phone] | | | | | OF SKIN | Fax: | Fax: | | | | | ABSCESS SC | | [phone] | | | | | DRAIN SKIN | | | | | | | ABSCESS | | | | | | | COMPLIC SC | | | | | | | COMPLEX | | | | | | | DRAINAGE, | | | | | | | WOUND day | | | | | | | procedure | | | +--------+--------+ + + + + Reason for Visit + + + | Reason | Comments | + + + | Surgery Scheduling | | + + + Encounter Details +--------+ + + + + | Date | Type | Department | Care Team | Description | +--------+ + + + + | 05/22/ | Telephone | Dig[facility]ive Health | Cinthia Nava MD | Surgery Scheduling | | 2015 | | Center at [facility] [address] | [address] | | | | | [address] | [address] [place], | | | | | Mailcode: [place] | [place] [address] | | | | | for Health and | [phone] | | | | | [facility] 2 | | | | | | [place], [place] | | | | | | [address] | | | | | | [phone] | | | +--------+ + + + [...] + | Diagnosis | + + | Perianal abscess - Primary Abscess of anal and rectal regions | + + documented in this encounter"
--- OUTSIDE RECORDS SUMMARY | ~2019-01-04 | XMS | Encounter Summary ---
Demographics + + + | Address | [address] | | | [place] [address] | + + + | Home Phone | | + + + | Preferred Language | Unknown | + + + | Marital Status | Single | + + + | Protestant Affiliation | NRP | + + + | Race | White | + + + | Ethnic Group | Not or | + + + Author + + + | Author | [facility] | + + + | Organization | [facility] | + + + | Address [...] Team Providers + +------+ + | Care Accounts Administrator Name | Role | Phone | + [...] | [address] | [address] [place], | | | | | Mailcode: [place] | [place] [address] | | | | | for Health and | [phone] | | | | | [facility] 2 | | | | | | [place], [place] | | | | | | [address] | | | | | | [phone] | | | +--------+ + + + [...]
--- OUTSIDE RECORDS SUMMARY | ~2019-01-04 | XMS | Encounter Summary ---
Demographics + + + | Address | [address] | | | [place] [address] | + + + | Home Phone | | + + + | Preferred Language | Unknown | + + + | Marital Status | Single | + + + | Episcopal Affiliation | NRP | + + + | Race | White | + + + | Ethnic Group | Not or | + + + Author + + + | Author | [facility] | + + + | Organization | [facility] | + + + | Address [...] Team Providers + +------+ + | Care Furniture Packer Name | Role | Phone | + [...] EXAM UNDER | | 2015 | | [facility] | [address] [facility] | ANESTHESIA; | | | | Admitting Desk | [facility], | POSSIBLE DRAINAGE | | | | Located on the | [place] [address] | [address]AC[address], | | | | floor [address] [facility] | [phone] | POSSIBLE FISTULOTOMY | | | | [facility] | | | | | | [place], [place] | | | | | | [address] | | | +--------+---------+ + + + [...] 9:15 AM PST INPATIENT PHYSICIAN DISCHARGE SUMMARY [facility] Green Surgery Team Attending Physician: Cinthia [...] June 2015 at the PCP clinic at [facility] in [place]. 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 He underwen t exam [...] PM Cinthia Oro [facility] 6th Floor [phone] [facility] Schedule the following appointment(s) when you get home Follow up with CINTHIA ORO MD In 2 weeks. Specialty: General Surgery Contact information [address] [place] [address] Follow up with FRANCISCA BANERJEE MD On 09/25/2015. Specialty: Hematology & Oncology Why: at 1pm for follow up regarding lower extremity DVT Contact information [address] [place] [address] Other Discharge Orders and Instructions Medication Refill Instructions: If you need a refill on any narcotic pain medications, please call the clinic ([phone] ) by 2 pm on for any [...] during the day time hours by calling [facility] surgery office at [phone] - After hours, weekends and holidays, you may call the hospital game operator at [phone] an d have the calibration laboratory technician Green Team for general surgery paged. Constipation: [...] activity, sleep and overall healing. You are zelda graham sent home with a prescription for pain relief. This should be taken every 3-6 hours per y our instructions. Some medications, like lortab or hydrocodone have Tylenol in it. Make yaya e you do not take more than 3,000 mg of tylenol or acetaminophen in 24 hours. 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 Provide for a home One Touch Monitor. P CP contact number at [facility] is [phone]. I was able to talk with his provider, Pancho Ascencio [employer] [place] INTERMEDIATE S[employer] PRINCIPAL, who has had 2 clinic visits, changed [...] Dr. Oro on September 25 ALESSANDRO Steward [facility] [address] [place] [address] This assessment and plan was formulated both [...] the time of discharge to discuss with dry house wheeler tana ut future plans. Shun Garcia MD [facility] Internal Medicine PGY-3 Pager [phone] Patient staffed with attending physician, Dr. Banerjee, [...] possible perirectal abscess. 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 Provide for a home One Touch Monitor. P CP contact number at [facility] is [phone]. I was able to talk with his provider, Pancho Ascencio [employer] [place] [employer] S[employer] PRINCIPAL, who has had 2 clinic visits, changed [...] & line dates reviewed; Janet Raza MD [facility], Team pg [phone] Diagnoses: K61.1 Perirectal abscess akovec, Sully [facility] - 09/11/2015 6:13 AM PST MILAGROS PROGRESS: [...] cho ices. He is amenable to the Cooler Servicer talking with him. 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 Provide for a home One Touch Monitor. PCP contact number at [facility] is [phone] . I was able to talk with his provider, Ana Ascencio [employer] [place] INTERMEDIATE S[employer] PRINCIPAL, who has had 2 clinic visits, ch [...] & line dates reviewed; Janet Raza MD [facility] Surgery, R1 Team pg 43213 -addendum Sully Ovalle, ACNP [facility] [address] [place], [place] [id number] Diagnoses: K61.1 Perirectal abscess Associated attestation - Cinthia Oro MD - 09/12/2015 7:39 AM PSTCOLON AND RECTAL SURGERY At [facility] Progress Note I have seen and [...] Attending | | Surgeon: Cinthia Oro MD Seals Engraver(s): Kenny Quintero M.D. | | Preoperative Diagnoses: [...] 09/12/2015 12:38:49DT: 09/12/2015 | | 13:34:17Job #: [id number] | | | |We placed a seton [...] | | | |Cinthia Oro MD | |[facility] | | | | | | /[id number] | + + CAPILLARY BLOOD GLUCOSE (NO [...] WALLS | [address] | [place], [place] | | | DONTE POINT OF CARE | [address] | [address] | | | TESTS | | | [...] TITI | [address] | [place], [place] | | | TAYLOR KENT OF SH[place]A | [address] | [address] | | | TESTS | | | [...] | + + + + + | [facility] | [address] | [place] [address] | | | SERVICES, CORE | PAUL [...] (H) | 60 - 99 mg/dL | [facility] - | | | GLUCOSE, | | [...] WALLS | [address] | [place], [place] | | | [place] | [facility] | [address] | | | TESTS | | | [...] ARNOLAM | [address] | [place], [place] | | | [place] | [facility] | [address] | | | TESTS | | | [...] (H) | 60 - 99 mg/dL | [facility] - | | | GLUCOSE, | | [...] WALLS | [address] | [place], [place] | | | TAYLOR KENT OF CARE | [address] | [address] | | | TESTS | | | [...] TITI | [address] | [place], [place] | | | [place] | [address] | [address] | | | TESTS | | | [...] | + + + + + | [facility] | [address] | [place] [address] | | | SERVICES, CORE | PAUL [...] | | | LABORATORY | | | NIUEAN | | | SERVICES, | | | [...] | + + + + + | [facility] | [address] | [place] [address] | | | OLESYA SOTO | PAUL [...] | + + + + + | [facility] | [address] | [place] [address] | | | SERVICES, CORE | PAUL [...] (H) | 60 - 99 mg/dL | [facility] - | | | GLUCOSE, | | [...] WALLS | [address] | [place], [place] | | | DONTE POINT OF CARE | [address] | [address] | | | TESTS | | | [...] MARQUAM | [address] | [place], [place] | | | TAYLOR KENT OF CARE | [address] | [address] | | | TESTS | | | [...] - TITI | [address] | [place], [place] | | | TAYLOR KENT OF CARE | [address] | [address] | | | TESTS | | | [...] (H) | 60 - 99 mg/dL | [facility] - | | | GLUCOSE, | | [...] + + + | [facility] | [address] | [place], [place] | | | DONTE POINT OF CARE | [address] | [address] | | | TESTS | | | [...] [facility] | [address] | [place] [address] | | | SERVICES, CORE | PARK [...] [facility] | [address] | [place] [address] | | | BRITTANY, OLESYA | PAUL [...] MARQUAM | [address] | [place], [place] | | | [place] | [address] | [address] | | | TESTS | | | [...] WALLS | [address] | [place], [place] | | | TAYLOR KENT OF CARE | [address] | [address] | | | TESTS | | | [...] WALLS | [address] | [place], [place] | | | [place] | [address] | [address] | | | TESTS | | | [...] [facility] | [address] | [place] [address] | | | SERVICES, CORE | PARK [...] | + + + + + | [facility] | [address] | [place] [address] | | | SERVICES, CORE | PAUL [...] | + + + + + | [facility] - | [address] | [place] [address] | | | [place] | | | | + + + [...] [facility] | [address] | [place] [address] | | | SERVICES, SPECIAL | PARK [...] [facility] | [address] | [place] [address] | | | BRITTANY, OLESYA | PAUL [...] | + + + + + | [facility] | [address] | [place] [address] | | | SERVICES, CORE | [address] | | | + + + + + MAGNESIUM, PLASMA (09/10/2015 12:55 PM PST) + +---------+ + + + | Component | Value | Ref Range | Performed | Pathologist | | | | | At | Signature | + +---------+ + + + | MAGNESIUM,P | 1.4 (L) | 1.8 - 2.5 mg/dL | [facility] | | | LASMA | | | [...] | + + + + + | [facility] | [address] [facility] | [place] [address] | | | SERVICES, CORE | PAUL [...] | | | LABORATORY | | | NIUEAN | | | SERVICES, | | | [...] | + + + + + | [facility] | [address] | [place] [address] | | | SERVICES, CORE | [address] | | | + + + + + 12 LEAD ECG (09/10/2015 12:39 PM PST) + + + + + + | Component | Value | Ref Range | Performed | Pathologist | | | | | At | Signature | + + + + + + | VENTRICULAR | 73 | bpm | [facility] | | | RATE | | [...] DEPT OF | [address] | [place], [place] | | | CARDIOLOGY | [address] | [address] | | + + + + + [...]
--- OUTSIDE RECORDS SUMMARY | ~2019-01-04 | XMS | Encounter Summary ---
Demographics + + + | Address | [address] | | | [place] [address] | + + + | Home Phone | | + + + | Preferred Language | Unknown | + + + | Marital Status | Single | + + + | Rastafarian Affiliation | NRP | + + + [...] Team Providers + +------+ + | Care Route Salesman Name | Role | Phone | + [...] Center at [facility] [address] | ACNP [address] [facility] | follow-up | | | | [address] | [address] | | | | | Mailcode: Center | [place], [place] | | | | | for Health and | [address] | | | | | [facility] 2 | [phone] | | | | | [place], [place] | | | | | | [address] | | | | | | [phone] | | | +--------+ + + + [...]
--- OUTSIDE RECORDS SUMMARY | ~2019-01-04 | XMS | Encounter Summary ---
Demographics + + + | Address | [address] | | | [place] [address] | + + + | Home Phone | | + + + | Preferred Language | Unknown | + + + | Marital Status | Single | + + + | Druze Affiliation | NRP | + + + [...] Team Providers + +------+ + | Care [place] Name | Role | Phone | + [...] (Primary | | 2016 | Visit | [place] [facility] [address] | [address] | Dx) | | | | ALIZA Lerner | [place], | | | | | Mailcode: [place] | [place] [address] | | | | | for Health and | [phone] | | | | | [facility] [address] | | | | | | [place], [place] | | | | | | [address] | | | | | | [phone] | | | +--------+---------+ + + + [...] pneumonia, UTI, recurrence, fecal incontinence, DVT, PE, MA, stroke, and were discussed, he wished to [...] pneumonia, UTI, recurrence, fecal incontinence, DVT, PE, MA, stroke, and were discussed, he wished to [...] Years of Education: 11 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 10 minute document review do cumented in this encounter Plan of Treatment Not on filedocumented as of this encounter Visit Diagnoses + + | Diagnosis | + + | Rectal pain - Primary Anal or rectal pain | + + documented in this encounter
--- OUTSIDE RECORDS SUMMARY | ~2019-01-04 | XMS | Encounter Summary ---
Demographics + + + | Address | [address] | | | [place] [address] | + + + | Home Phone | | + + + | Preferred Language | Unknown | + + + | Marital Status | Single | + + + | Taoism Affiliation | NRP | + + + | Race | White | + + + | Ethnic Group | Not or | + + + Author + + + | Author | [facility] | + + + | Organization | [facility] | + + + | Address [...] Team Providers + +------+ + | Care Steel Manager Name | Role | Phone | + +------+ + | Ana Ascencio NP | PCP | Unavailable | + +------+ + Encounter Details +--------+------+ + + + | Date | Type | Department | Care Team | Description | +--------+------+ + + + | 09/25/ | Lab | Laboratory at [facility] | | DVT (deep venous | | 2016 | | [address] | | thrombosis), left | | | | [place], [place] | | ([facility]) | | | | [address] | | | | | | [phone] | | | +--------+------+ + + + Social History + + [...] + +--------+ + + + | CBC AND AUTO DIFF | Routin | 09/25/2015 | DVT (deep venous | Results for this | | | e | 3:06 PM | thrombosis), left | procedure are in the | | | | PST | ([facility]) | results section. | + +--------+ + + + | [facility] - COMPLETE | Routin | 09/25/2015 | DVT (deep venous | Results for this | | METABOLIC SET | e | 3:06 PM | thrombosis), left | procedure are in the | | | | PST | ([facility]) | results section. | + +--------+ + + + | [facility] CBC W | Routin | 09/25/2015 | DVT (deep venous | Results for this | | DIFFERENTIAL | e | 3:06 PM | thrombosis), left | procedure are in the | | | | PST | ([facility]) | results section. | + +--------+ + + + | INR | Routin | 09/25/2015 | DVT (deep venous | Results for this | | | e | 3:06 PM | thrombosis), left | procedure are in the | | | | PST | ([facility]) | results section. | + +--------+ + + + | ANTICARDIOLIPIN | Routin | 09/25/2015 | DVT (deep venous | Results for this | | IGG/M | e | 3:06 PM | thrombosis), left | procedure are in the | | | | PST | ([facility]) | results section. | + +--------+ + + + | APTT (ACT. PART. | Routin | 09/25/2015 | DVT (deep venous | Results for this | | THROMBO TIME) | e | 3:06 PM | thrombosis), left | procedure are in the | | | | PST | ([facility]) | results section. | + +--------+ + + + | FERRITIN | Routin | 09/25/2015 | DVT (deep venous | Results for this | | | e | 3:06 PM | thrombosis), left | procedure are in the | | | | PST | ([facility]) | results section. | + +--------+ + + + | ANTI-B2 GLYCOPROTEIN | Routin | 09/25/2015 | DVT (deep venous | Results for this | | 1 GM | e | 3:06 PM | thrombosis), left | procedure are in the | | | | PST | ([facility]) | results section. | + +--------+ + + + | LDH TOTAL, PLASMA | Routin | 09/25/2015 | DVT (deep venous | Results for this | | | e | 3:06 PM | thrombosis), left | procedure are in the | | | | PST | ([facility]) | results section. | + +--------+ + + + documented in this encounter Results CBC AND AUTO DIFF (09/25/2015 3:06 PM PST) + + + + + + | Component | Value | Ref Range | Performed | Pathologist | | | | | At | Signature | + + + + + + | WHITE CELL | 11.35 (H) | 4.40 - 11.00 | [facility] | | | COUNT | | K/cu mm | LABORATORY | | | | | | SERVICES, | | | | | | [facility] | | | | | | [facility] | | + + + + + + | RED CELL | 4.40 (L) | 4.50 - 6.00 | [facility] | | | COUNT | | M/cu mm | LABORATORY | | | | | | SERVICES, | | | | | | [facility] + | | | | | | [facility] | | + + + + + + | HEMOGLOBIN | 14.3 | 13.5 - 17.5 | [facility] | | | | | g/dL | LABORATORY | | | | | | SERVICES, | | | | | | [facility] + | | | | | | [facility]ALING | | + + + + + + | HEMATOCRIT | 41.2 | 41.0 - 53.0 % | [facility] | | | | | | LABORATORY | | | | | | SERVICES, | | | | | | [facility] + | | | | | | [facility]ALING | | + + + + + + | MCV | 93.6 | 80.0 - 96.0 fL | [facility] | | | | | | LABORATORY | | | | | | SERVICES, | | | | | | [facility] + | | | | | | [facility]ALING | | + + + + + + | MCHC | 34.7 | 33.0 - 35.5 | [facility] | | | | | g/dL | LABORATORY | | | | | | SERVICES, | | | | | | [facility] + | | | | | | [facility]ALING | | + + + + + + | RDW SD | 43.4 | 35.1 - 46.3 fL | [facility] | | | | | | LABORATORY | | | | | | SERVICES, | | | | | | [facility] | [facility] + | | | | | | [facility]ALING | | + + + + + + | PLATELET | 286 | 150 - 400 K/cu | [facility] | | | COUNT | | mm | LABORATORY | | | | | | SERVICES, | | | | | | [facility] + | | | | | | [facility]ALING | | + + + + + + | MPV | 9.7 | 9.7 - 12.3 fL | [facility] | | | | | | LABORATORY | | | | | | SERVICES, | | | | | | [facility] | [facility] + | | | | | | [facility]ALING | | + + + + + + | NEUTROPHIL | 48.0 (L) | 50.0 - 70.0 % | [facility] | | | % | | | LABORATORY | | | | | | SERVICES, | | | | | | [facility] | [facility] + | | | | | | [facility]ALING | | + + + + + + | LYMPHOCYTE | 39.3 | 18.0 - 42.0 % | [facility] | | | % | | | LABORATORY | | | | | | SERVICES, | | | | | | [facility] | [facility] + | | | | | | [facility]ALING | | + + + + + + | MONOCYTE % | 9.4 (H) | 3.5 - 9.0 % | [facility] | | | | | | LABORATORY | | | | | | SERVICES, | | | | | | [facility] | [facility] + | | | | | | [facility]ALING | | + + + + + + | EOS % | 2.7 | 1.0 - 3.0 % | [facility] | | | | | | LABORATORY | | | | | | SERVICES, | | | | | | [facility] | [facility] + | | | | | | HEALING | | + + + + + + | BASO % | 0.6 | 0.0 - 2.0 % | [facility] | | | | | | LABORATORY | | | | | | SERVICES, | | | | | | [facility] | [facility] + | | | | | | HEALING | | + + + + + + | NEUTROPHIL | 5.44 | 1.80 - 7.70 | [facility] | | | # | | K/cu mm | LABORATORY | | | | | | SERVICES, | | | | | | [facility] | [facility] + | | | | | | HEALING | | + + + + + + | LYMPHOCYTE | 4.46 | 1.00 - 4.80 | [facility] | | | # | | K/cu mm | LABORATORY | | | | | | SERVICES, | | | | | | [facility] | [facility] + | | | | | | HEALING | | + + + + + + | MONOCYTE # | 1.07 (H) | 0.10 - 0.90 | [facility] | | | | | K/cu mm | LABORATORY | | | | | | SERVICES, | | | | | | [facility] | [facility] + | | | | | | [facility]ALING | | + + + + + + | EOS # | 0.31 | 0.00 - 0.50 | [facility] | | | | | K/cu mm | LABORATORY | | | | | | SERVICES, | | | | | | [facility] | [facility] + | | | | | | HEALING | | + + + + + + | BASO # | 0.07 | 0.00 - 0.10 | [facility] | | | | | K/cu mm | LABORATORY | | | | | | SERVICES, | | | | | | [facility] | | [facility] + | | | | | | HEALING | | + + + + + + + + | Specimen | + + | Blood | + + + + + + + | Performing | Address | City/State/Zipcode | Phone Number | | Organization | | | | + + + + + | [facility] | [address] | [place] [address] | | | [facility] | | | | | HEALTH + HEALING | | | | + + + + + APTT (ACT. PART. THROMBO TIME) (09/25/2015 3:06 [...] + + | [facility] | [address] | [place] [address] | | | SERVICES, CORE | PARK [...] [facility] | [address] | [place] [address] | | | SERVICES, CORE | PARK [...] | + + + + + | [facility] | [address] | [place] [address] | | | SERVICES, SPECIAL | PARK [...] | + + + + + | [facility] | [address] | [place] [address] | | | SERVICES SPECIAL | [address] | | | [...] | + + + + + | [facility] | [address] | [place] [address] | | | SERVICES, CORE | PARK [...] [facility] | [address] | [place] [address] | | | SERVICES, CORE | [address] [...] effective 2014 for ALP performed in | [facility] | | [facility] only. | LABORATORY | | | SERVICES, | | | [facility] | | | [facility]ALTH + | | | HEALING | + + + + + + + + | Performing | Address | City/State/Zipcode | Phone Number | | Organization | | | | + + + + + | [facility] | [address] | [place] [address] | | | SERVICES, [place] [facility] | | | | | HEALTH + HEALING | | | | + + + + + documented in this encounter Visit Diagnoses + + | Diagnosis | + + | DVT (deep venous thrombosis), left | + + documented in this encounter"
--- OUTSIDE RECORDS SUMMARY | ~2019-01-04 | XMS | Encounter Summary ---
Demographics + + + | Address | [address] | | | [place] [address] | + + + | Home Phone | | + + + | Preferred Language | Unknown | + + + | Marital Status | Single | + + + | Episcopalian Affiliation | NRP | + + + | Race | White | + + + | Ethnic Group | Not or | + + + Author + + + | Author | [facility] | + + + | Organization | [facility] | + + + | Address [...] Team Providers + +------+ + | Care Lead Architect Name | Role | Phone | + [...] | Pain | | 2016 | | [place] [address] [address] | [address] | | | | | [address]ner | [place], | | | | | Mailcode: [place] | [place] [address] | | | | | for Health and | [phone] | | | | | [facility] [address] | | | | | | [place], [place] | | | | | | [address] | | | | | | [phone] | | | +--------+ + + + [...]
--- OUTSIDE RECORDS SUMMARY | ~2019-01-04 | XMS | Encounter Summary ---
Demographics + + + | Address | [address] | | | [place] [address] | + + + | Home Phone | | + + + | Preferred Language | Unknown | + + + | Marital Status | Single | + + + | Hinduism Affiliation | NRP | + + + | Race | White | + + + | Ethnic Group | Not or | + + + Author + + + | Author | [facility] | + + + | Organization | [facility] | + + + | Address | [...] Team Providers + +------+ + | Care Division Human Resources Manager Name | Role | Phone | + +------+ + | Ana Ascencio MINER ASSISTANT | PCP | Unavailable | + +------+ [...] | | | | | | | [place] [facility] | | | | | | | Health and | | | | | | | Healing, | | | | | | | Building [address] | | | | | | | [place], [place] | | | | | | | [address] | | | | | | | Phone: | | | | | | | [phone] | | | | | | | Fax: | | | | | | | [phone] | +--------+--------+ + + + + Encounter [...] | | [address]ner | [place], | Dx) | | | | Mailcode: [place] | [place] [address] | | | | | for Health and | [phone] | | | | | [facility] 2 | | | | | | [place], [place] | | | | | | [address] | | | | | | [phone] | | | +--------+---------+ + + + [...] for clinic today. 3 minute document review [facility]ed in this encounter Plan of Treatment Not on filedocumented as of this encounter Visit Diagnoses + + | Diagnosis | + + | No-show for appointment - Primary | + + documented in this encounter"
--- OUTSIDE RECORDS SUMMARY | ~2019-01-04 | XMS | Encounter Summary ---
Demographics + + + | Address | [address] | | | [place] [address] | + + + | Home Phone | | + + + | Preferred Language | Unknown | + + + | Marital Status | Single | + + + | Christianity Affiliation | NRP | + + + | Race | White | + + + | Ethnic Group | Not or | + + + Author + + + | Author | [facility] | + + + | Organization | [facility] | + + + | [...] Team Providers + +------+ + | Care Gaming Investigator Name | Role | Phone | + [...] | | | | REQUEST TO | [place], [place] | [place] | | | | | SURGERY | [address] | [address] | | | | | BIAS BINDING FOLDER | Phone: | Phone: | | | | | [place] D[place]IN[place] | [phone] | [phone] | | | | | OF SKIN | Fax: | Fax: | | | | | ABSCESS [place] | | [phone] | | | | | DRAIN SKIN | | | | | | | ABSCESS | | | | | | | COMPLIC [place] | | | | | | | [...] | | 2015 | | Center at [facility] [address] | [address] | | | | | [place] [place]ner | [place], | | | | | Mailcode: [place] | [place] [address] | | | | | for Health and | [phone] | | | | | [facility] 2 | | | | | | [place], [place] | | | | | | [address] | | | | | | [phone] | | | +--------+ + + + [...]
--- OUTSIDE RECORDS SUMMARY | ~2019-01-04 | XMS | Encounter Summary ---
Demographics + + + | Address | [address] | | | [place] [address] | + + + | Home Phone | | + + + | Preferred Language | Unknown | + + + | Marital Status | Single | + + + | Tenriism Affiliation | NRP | + + + | Race | White | + + + | Ethnic Group | Not or | + + + Author + + + | Author | [facility] | + + + | Organization | [facility] | + + + | [...] Team Providers + +------+ + | Care Assistant Professor Of Marine Biology Name | Role | Phone | + [...] | | 2016 | | Center at [facility] [address] | [address] | [place]) | | | | ALIZA Gillmaximiliano | [place], | | | | | Mailcode: [place] | [place] [address] | | | | | for Health and | [phone] | | | | | [facility] 2 | | | | | | [place], [place] | | | | | | [address] | | | | | | [phone] | | | +--------+ + + + [...]
--- OUTSIDE RECORDS SUMMARY | ~2019-01-04 | XMS | Clinical Summary ---
Demographics + + + | Address | [address] | | | [place] [address] | + + + | Home Phone [...] Author + + + | Author | [facility] | + + + | Organization | [facility] | + + + | Address | [...] Team Providers + +------+ + | Care Coin Box Inspector Name | Role | Phone | + +------+ + | No Pcp Per Patient | PP | Unavailable | + +------+ + Source Comments PERRY is fully live on both EpicCare Ambulatory and EpicCare InPatient.[facility] Allergies + + + + + + | Active Allergy | Reactions | Severity | Noted | Comments | | | | | Date | | + + + + + + | Morphine | Headache, Pruritus | | 09/10/19 | | | | | | 16 | | + + + + + + Medications + + + +---------+------+------+-------+ | Medication | Sig | Dispensed | Refills | Star | End | Statu | | | | | | t | Date | s | | | | | | Date | | | + + + +---------+------+------+-------+ | metFORMIN 1,000 mg | Take 1,000 mg by | | 0 | | | Activ | | oral tablet | mouth two times | | | | | e | | | daily. | | | | | | + + + +---------+------+------+-------+ | glipiZIDE 5 mg | Take 5 mg by mouth | | 0 | | | Activ | | oral tablet | once daily. | | | | | e | + + + +---------+------+------+-------+ | MULTIVITAMIN ORAL | Take 1 tablet by | | 0 | | | Activ | | | mouth once daily. | | | | | e | + + + +---------+------+------+-------+ | Potassium | Take 595 mg by mouth | | 0 | | | Activ | | Gluconate 595 (99) | every two days. | | | | | e | | mg oral tablet | | | | | | | + + + +---------+------+------+-------+ | PSYLLIUM SEED, | Take by mouth. | | 0 | | | Activ | | WITH DEXTROSE, | Fiber gummies 2 once | | | | | e | | (FIBER ORAL) | a day | | | | | | + + + +---------+------+------+-------+ | linagliptin 5 mg | Take 5 mg by mouth | | 0 | | | Activ | | oral tablet | once daily. | | | | | e | + + + +---------+------+------+-------+ | oxyCODONE, | Take 5 mg by mouth | | 0 | | | Activ | | immediate release, 5 | three times daily as | | | | | e | | mg oral tablet | needed. | | | | | | + + + +---------+------+------+-------+ | varenicline | Take 0.5 mg daily | 53 | 0 | 11/2 | | Activ | | (CHANTIX) 0.5 mg | for 3 days, then | tablet | | 1/20 | | e | | (11)- 1 mg (42) oral | increase to 0.5 mg | | | 16 | | | | tablets,dose pack | twice daily for 4 | | | | | | | | days, then increase | | | | | | | | to 1 mg twice daily. | | | | | | + + + +---------+------+------+-------+ Active Problems + + + | Problem | Noted Date | + + + | Pilonidal cyst with abscess | 10/27/2015 | + + + | Hidradenitis suppurativa of anus | 10/27/2015 | + + + | Perirectal abscess | 09/10/2015 | + + + | DVT (deep venous thrombosis) | 09/10/2015 | + + + | DM2 (diabetes mellitus, type 2) | 09/10/2015 | + + + | Obesity | 09/10/2015 | + + + | Nicotine addiction | 09/10/2015 | + + + Family History + + +------+ + | Medical History | Relation | Name | Comments | + + +------+ + | Cancer | Maternal | | colon cancer | | | Aunt | | | + + +------+ + | Diabetes | Mother | | | + + +------+ + + +------+--------+ + | Relation | Name | Status | Comments | + +------+--------+ + | Maternal Aunt | | | | + +------+--------+ + | Mother | | | | + +------+--------+ + Social History + + + +--------+------+ [...] recent travel history available. | + + Last Filed Vital Signs + [...] | | + + + + + Plan of Treatment + + + + + | Health Maintenance | Due Date | Last Done | Comments | + + + + + | Pneumococcal (Adult) | | | | | (1 of 1 - PPSV23) | 8 | | | + + + + + | Influenza (Flu) | | | | | vaccination (Season | 9 | | | | Ended) | | | | + + + + + Results Not on filefrom Last 3 Months Insurance + +--------+ +--------+-------+---------+--------+ | Payer | Benefi | Subscriber | Effect | Phone | Address | Type | | | t Plan | ID | bette | | | | | | / | | Dates | | | | | | Group | | | | | | + +--------+ +--------+-------+---------+--------+ | SPD TECH MEDICAID | SPD TECH | xxxxxxxx | Effect | | | Medica | | | EAST[place] | | bette | | | id | | | [place] | | for | | | | | | | | all | | | | | | | | dates | | | | + +--------+ +--------+-------+---------+--------+ + +--------+ +--------+ + + | Guarantor Name | Accoun | Relation to | Date | Phone | Billing Address | | | t Type | Patient | of | | | | | | | | | | + +--------+ +--------+ + + | Fede Boyer | Person | Self [birth year] | [address] | | | al/Jayme | | 1981 | [phone] | [place] [address] | | | [place] | | | 9 (Home) | | + +--------+ +--------+ + + Advance Directives + + + + + | Code Status | Date | Date | Comments | | | Activated | Inactivated | | + + + + + | Full Code | 09/10/2015 | 09/13/2015 | | | | 11:43 AM | 7:05 PM | | + + + + +
--- OUTSIDE RECORDS SUMMARY | ~2019-01-04 | XMS | Encounter Summary ---
Demographics + + + | Address | [address] | | | [place] [address] | + + + | Home Phone [...] Author + + + | Author | [facility] | + + + | Organization | [facility] | + + + | Address [...] Team Providers + +------+ + | Care Blanket Binder Name | Role | Phone | + [...] | | 2015 | | Center at [facility] [address] | | - General | | | | AL[place] | | | | | | Mailcode: Center | | | | | | for Health and | | | | | | [facility] 2 | | | | | | [place], [place] | | | | | | [address] | | | | | | [phone] | | | +--------+ + + + [...]
--- OUTSIDE RECORDS SUMMARY | ~2019-01-04 | XMS | Encounter Summary ---
Demographics + + + | Address | [address] | | | [place] [address] | + + + | Home Phone [...] Team Providers + +------+ + | Care Stone Cutter Name | Role | Phone | + +------+ + | Ana Ascencio NP | PCP | Unavailable | + +------+ + Encounter Details +--------+------+ + + + | Date | Type | Department | Care Team | Description | +--------+------+ + + + | 09/25/ | Lab | Laboratory at [facility] | | DVT (deep venous | | 2016 | | [address] | | thrombosis), left | | | | [place], [place] | | ([facility]) | | | | [address] | | | | | | [phone] | | | +--------+------+ + + + [...] the | | | | PST | ([facility]) | results section. | + +--------+ + + + | [facility] - COMPLETE | Routin | 09/25/2015 | DVT (deep venous | Results for this | | METABOLIC SET | e | 3:06 PM | thrombosis), left | procedure are in the | | | | PST | ([facility]) | results section. | + +--------+ + + + | [facility] CBC W | Routin | 09/25/2015 | DVT (deep venous | Results for this | | DIFFERENTIAL | e | 3:06 PM | thrombosis), left | procedure are in the | | | | PST | ([facility]) | results section. | + +--------+ + + + | INR | Routin | 09/25/2015 | DVT (deep venous | Results for this | | | e | 3:06 PM | thrombosis), left | procedure are in the | | | | PST | ([facility]) | results section. | + +--------+ + + + | ANTICARDIOLIPIN | Routin | 09/25/2015 | DVT (deep venous | Results for this | | IGG/M | e | 3:06 PM | thrombosis), left | procedure are in the | | | | PST | ([facility]) | results section. | + +--------+ + + + | APTT (ACT. PART. | Routin | 09/25/2015 | DVT (deep venous | Results for this | | THROMBO TIME) | e | 3:06 PM | thrombosis), left | procedure are in the | | | | PST | ([facility]) | results section. | + +--------+ + + + | FERRITIN | Routin | 09/25/2015 | DVT (deep venous | Results for this | | | e | 3:06 PM | thrombosis), left | procedure are in the | | | | PST | ([facility]) | results section. | + +--------+ + + + | ANTI-B2 GLYCOPROTEIN | Routin | 09/25/2015 | DVT (deep venous | Results for this | | 1 GM | e | 3:06 PM | thrombosis), left | procedure are in the | | | | PST | ([facility]) | results section. | + +--------+ + + + | LDH TOTAL, PLASMA | Routin | 09/25/2015 | DVT (deep venous | Results for this | | | e | 3:06 PM | thrombosis), left | procedure are in the | | | | PST | ([facility]) | results section. | + +--------+ [...] LABORATORY | [address] | [place] [address] | | | [facility] | | | | | HEALTH + [...] [facility] | [address] | [place] [address] | | | SERVICES, CORE | PARK [...] [facility] | [address] | [place] [address] | | | SERVICES, CORE | PARK [...] | + + + + + | [facility] | [address] | [place] [address] | | | SERVICES, SPECIAL | PARK [...] | + + + + + | [facility] | [address] | [place] [address] | | | SERVICES SPECIAL | [address] | | | | IMM + [...] | + + + + + | [facility] | [address] | [place] [address] | | | SERVICES, CORE | PARK [...] [facility] | [address] | [place] [address] | | | SERVICES, CORE | PAUL [...] effective 2014 for ALP performed in | [facility] | | [facility] only. | LABORATORY | | | SERVICES, | | | [facility] | [facility] + | | | [facility] | + + + + + + + + | Performing | Address | City/State/Zipcode | Phone Number | | Organization | | | | + + + + + | [facility] | [address] | [place] [address] | | | SERVICES, [place] [facility] | | | | [facility] + HEALING | | | | + + + + + documented in this encounter Visit Diagnoses + + | Diagnosis | + + | DVT (deep venous thrombosis), left | + + documented in this encounter"
--- OUTSIDE RECORDS SUMMARY | ~2019-01-04 | XMS | Encounter Summary ---
Demographics + + + | Address | [address] | | | [place] [address] | + + + | Home Phone | | + + + | Preferred Language | Unknown | + + + | Marital Status | Single | + + + | Caodaism Affiliation | NRP | + + + [...] Team Providers + +------+ + | Care Patternmaker Metal Bench Name | Role | Phone | + [...] | | | 2015 | Event | [facility] | MD | | | | | Admitting Desk | | | | | | Located on the 9 | | | | | | [address] | | | | | | [facility] | | | | | | [place], [place] | | | | | | [address] | | | +--------+ + + + [...]
--- OUTSIDE RECORDS SUMMARY | ~2019-01-04 | XMS | Encounter Summary ---
Demographics + + + | Address | [address] | | | [place] [address] | + + + | Home Phone | | + + + | Preferred Language | Unknown | + + + | Marital Status | Single | + + + | Confucianist Affiliation | NRP | + + + | Race | White | + + + | Ethnic Group | Not or | + + + Author + + + | Author | [facility] | + + + | Organization | [facility] | + + + | Address | [...] Team Providers + +------+ + | Care Duralumin Metalworker Name | Role | Phone | + +------+ + | Ana Ascencio GEOLOGICAL ENGINEERING TEACHER | PCP | Unavailable | + +------+ [...] | | | | CONSULT TO | [facility] | [place], [place] | | | | | HEMATOLOGY / | Rd | [address] | | | | | ONCOLOGY | [place], [place] | Phone: | | | | | | [address] | [phone] | | | | | | Phone: | Fax: | | | | | | [phone] | [phone] | | | | | | Fax: | | | | | | | [phone] | | +--------+--------+ + + + + [...] + + | 09/10/ | Hospital | [facility] [address] | Cinthia Oro MD | | | 2016 - | Encounter | [address] | [address] | | | | | [place] [address] | [place], | | | 09/13/ | | [phone] | [place] [address] | | | 2015 | | | [phone] | | | | | | | [...] 9:15 AM PST INPATIENT PHYSICIAN DISCHARGE SUMMARY [facility] Green Surgery Team Attending Physician: Cinthia Oro [...] 10, 2015, at the request of [facility], Dr. Devan Butler. He had [...] June 2015 at the PCP clinic at [facility] in [place]. The vascular duplex of BLE revealed a chronic righ t popliteal/femoral thrombus, non-occlusive with recommendations from Hematology for 2 weeks of 40 mg subcu Lovenox, and followup with the Slot Floor Supervisor on September 25.. He underwen t exam [...] PM Cinthia Oro [facility] 6th Floor [phone] [facility] Schedule the following appointment(s) when you get home Follow up with CINTHIA ORO MD In 2 weeks. Specialty: General Surgery Contact information [address] [place] [address] Follow up with FRANCISCA BANERJEE MD On 09/25/2015. Specialty: Hematology & Oncology Why: at 1pm for follow up regarding lower extremity DVT Contact information [address] [place] [address] Other Discharge Orders and Instructions Medication Refill Instructions: If you need a refill on any narcotic pain medications, please call the clinic ([phone] ) by 2 pm on for any [...] during the day time hours by calling [facility] at [phone] - After hours, weekends and holidays, you may call the hospital hack saw operator at [phone] an d have the numerical control nesting operator [place] Team for general surgery paged. Constipation: It [...] in 24 hours. 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 Provide for a home One Touch Monitor. P CP contact number at [facility] is [phone]. I was able to talk with his provider, Pancho Ascencio GEOLOGICAL ENGINEERING TEACHER, who has had 2 clinic visits, changed [...] Dr. Oro on September 25 ALESSANDRO Steward [facility] [address] [place] [address] This assessment and plan was formulated both [...] the time of discharge to discuss with management assistant abo ut future plans. Shun Garcia MD [facility] Internal Medicine PGY-3 Pager [phone] Patient staffed with attending physician, Dr. Banerjee, [...] possible perirectal abscess. 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 Provide for a home One Touch Monitor. P CP contact number at [facility] is [phone]. I was able to talk with his provider, Pancho Ascencio GEOLOGICAL ENGINEERING TEACHER, who has had 2 clinic visits, changed [...] & line dates reviewed; Janet Raza MD [facility] Surgery, [place] [id number] Diagnoses: K61.1 Perirectal abscess Sully Lugo ACNP [...] cho ices. He is amenable to the Cement Despatch Operator talking with him. 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 Provide for a home One Touch Monitor. PCP contact number at [facility] is [phone] . I was able to talk with [...] & line dates reviewed; Janet Raza MD [facility] Green Surgery, R1 [place] pg [id number] -addendum Sully Ovalle, [facility] [address] [place] [address] Diagnoses: K61.1 Perirectal abscess Associated attestation - Cinthia Oro MD - 09/12/2015 7:39 AM PSTCOLON AND RECTAL SURGERY At [facility] Progress Note I have seen and examined [...] Attending | | Surgeon: Cinthia Oro MD Etiquette Coach(s): Kenny Quintero M.D. | | Preoperative Diagnoses: [...] follows. We cannulated the tracts with a [facility] | | probe, placed an A-line wire [...] 09/12/2015 12:38:49DT: 09/12/2015 | | 13:34:17Job #: [id number] | | | |We placed a seton [...] | | | |Cinthia Oro MD | |[facility] | | | | | | /[id number] | + + CAPILLARY BLOOD GLUCOSE (NO [...] ARN[place]AM | [address] | [place], [place] | | | TAYLOR KENT OF CARE | [address] | [address] | | | TESTS | | | [...] WALLS | [address] | [place], [place] | | | TAYLOR KENT OF SHANIQUA | [address] | [address] | | | TESTS | | | [...] | + + + + + | [facility] | [address] | [place] [address] | | | SERVICES, CORE | PAUL [...] (H) | 60 - 99 mg/dL | [facility] - | | | GLUCOSE, | | [...] WALLS | [address] | [place], [place] | | | TAYLOR KENT OF CARE | [address] | [address] | | | TESTS | | | [...] MARQUAM | [address] | [place], [place] | | | TAYLOR KENT OF CARE | [address] | [address] | | | TESTS | | | [...] MARQUAM | [address] | [place], [place] | | | TAYLOR KENT OF CARE | [address] | [address] | | | TESTS | | | [...] WALLS | [address] | [place], [place] | | | DONTE POINT OF CARE | [address] | [address] | | | TESTS | | | [...] [facility] | [address] | [place] [address] | | | SERVICES, CORE | PARK [...] (H) | 60 - 99 mg/dL | [facility] | | | PLASMA | | | [...] | | | LABORATORY | | | BHUTANESE | | | SERVICES, | | | [...] | + + + + + | [facility] | [address] [facility] | [place] [address] | | | BRITTANY, OLESYA | PAUL [...] [facility] | [address] | [place] [address] | | | SERVICES, CORE | PAUL [...] - MARQUAM | [address] | [place], [place] | | | DONTE POINT OF CARE | [address] | [address] | | | TESTS | | | [...] WALLS | [address] | [place], [place] | | | TAYLOR KENT OF CARE | [address] | [address] | | | TESTS | | | [...] MARQUAM | [address] | [place], [place] | | | DONTE POINT OF CARE | [address] | [address] | | | TESTS | | | [...] - TITI | [address] | [place], [place] | | | DONTE POINT OF CARE | [address] | [address] | | | TESTS | | | [...] [facility] | [address] | [place] [address] | | | SERVICES, CORE | PAUL [...] [facility] | [address] | [place] [address] | | | OLESYA SOTO | PAUL [...] TITI | [address] | [place], [place] | | | TAYLOR KENT OF CARE | [address] | [address] | | | TESTS | | | [...] (H) | 60 - 99 mg/dL | [facility] - | | | GLUCOSE, | | [...] WALLS | [address] | [place], [place] | | | TAYLOR KENT OF CARE | [address] | [address] | | | TESTS | | | [...] | | + +---------+ + + | [facility] DEPARTMENT OF | | | | | [...] WALLS | [address] | [place], [place] | | | TAYLOR KENT OF SHANIQUA | [address] | [address] | | | TESTS | | | [...] [facility] | [address] | [place] [address] | | | SERVICES, CORE | [address] | | | + + + + + C-REACTIVE PROTEIN (09/10/2015 12:55 PM PST) + +-------+ + + + | Component | Value | Ref Range | Performed | Pathologist | | | | | At | Signature | + +-------+ + + + | C-REACTIVE | 9.9 | <10.0 mg/L | [facility] | | | PROTEIN | | | [...] [facility] | [address] | [place] [address] | | | SERVICES, CORE | PARK [...] | + + + + + | [facility] - | [address] | [place], [place] [address] | | | [place] | | | | + + + [...] | + + + + + | [facility] | [address] | [place] [address] | | | SERVICES, SPECIAL | PAUL [...] | + + + + + | [facility] | [address] [facility] | [place] [address] | | | SERVICES, OLESYA | PAUL [...] [facility] | [address] | [place] [address] | | | SERVICES, CORE | PAUL [...] [facility] | [address] | [place] [address] | | | SERVICES, CORE | PARK [...] | | | LABORATORY | | | BHUTANESE | | | SERVICES, | | | [...] the MDRD equation recommended by the | [facility] | | National Kidney Disease Education Program. [...] | + + + + + | [facility] | [address] | [place] [address] | | | OLESYA SOTO | PAUL [...] DEPT OF | [address] | [place], [place] | | | CARDIOLOGY | [address] | [address] | | + + + + + documented in this encounter Visit Diagnoses + + | Diagnosis | + + | Perirectal abscess - Primary Abscess of anal and rectal regions | + + | DVT (deep venous thrombosis) ([facility]) Acute venous embolism and thrombosis of | | unspecified deep vessels of lower extremity | + + | DM2 (diabetes mellitus, type 2) ([facility]) Type II or unspecified type diabetes mellitus [...] 16 2:00 | | | | | LINING IRONER infusion intravenous, | | PM PST | | | | | CONTINUOUS, Starting Argenis 09/12/15 | | | | | | | at 1330, Until 09/13/15 at | | | | | | | 0224 | | | | | | + +---------+ +--------+---+---+ + +---+ | | | + +---+ | HYDROmorphone LINING IRONER infusion 1 | | | dose, Starting [...]
--- OUTSIDE RECORDS SUMMARY | ~2019-01-04 | XMS | Encounter Summary ---
Demographics + + + | Address | [address] | | | [place] [address] | + + + | Home Phone | | + + + | Preferred Language | Unknown | + + + | Marital Status | Single | + + + | Church Affiliation | NRP | + + + [...] Team Providers + +------+ + | Care Poured Wall Foreman Name | Role | Phone | + [...] | | | | CONSULT TO | [facility] | [place], [place] | | | | | HEMATOLOGY / | Rd | [address] | | | | | ONCOLOGY | [facility] [place] | Phone: | | | | | | [address] | [phone] | | | | | | Phone: | Fax: | | | | | | [phone] | [phone] | | | | | | Fax: | | | | | | | [phone] | | +--------+--------+ + + + + [...] | | for Health & Healing | [place], [place] | femoral vein of left | | | | [address] | [address] | lower extremity | | | | Mailcode: [place] | [phone] | (HCC) (Primary Dx) | | | | for Health and | | | | | | Healing, [address] | | | | | | [place], [place] | | | | | | [address] | | | | | | [phone] | | | +--------+---------+ + + + [...] not arrive to appointment. 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
--- OUTSIDE RECORDS SUMMARY | ~2019-01-04 | XMS | Encounter Summary ---
Demographics + + + | Address | [address] | | | [place] [address] | + + + | Home Phone | | + + + | Preferred Language | Unknown | + + + | Marital Status | Single | + + + | Buddhist Affiliation | NRP | + + + | Race | White | + + + | Ethnic Group | Not or | + + + Author + + + | Author | [facility] | + + + | Organization | [facility] | + + + | Address [...] Providers + +------+ + | Care Front Counter Clerk Name | Role | Phone | + +------+ + | Ana Ascencio NP | PCP | Unavailable | + +------+ + Encounter Details +--------+ + + + + | Date | Type | Department | Care Team | Description | +--------+ + + + + | 09/30/ | Telephone | Hematology/Medical | Rut Slade, | | | 2016 | | Oncology at Portal | MD [address] | | | | | for Health & Healing | [place], [place] | | | | | [address] | [address] | | | | | Mailcode: Portal | [phone] | | | | | for Health and | | | | | | Healing, [address] | | | | | | [place], [place] | | | | | | [address] | | | | | | [phone] | | | +--------+ + + + [...]
--- OUTSIDE RECORDS SUMMARY | ~2019-01-04 | XMS | Encounter Summary ---
Demographics + + + | Address | [address] | | | [place] [address] | + + + | Home Phone | | + + + | Preferred Language | Unknown | + + + | Marital Status | Single | + + + | Orthodox Affiliation | NRP | + + + | Race | White | + + + | Ethnic Group | Not or | + + + Author + + + | Author | [facility] | + + + | Organization | [facility] | + + + | Address [...] Team Providers + +------+ + | Care Oral And Maxillofacial Surgery Resident Name | Role | Phone | + [...] [address] | | | | | | [facility] | | | | | | [place], [place] | | | | | | [address] | | | +--------+ + + + [...]
--- OUTSIDE RECORDS SUMMARY | ~2019-01-04 | XMS | Clinical Summary ---
Demographics + + + | Address | [address] | | | [place] [address] | + + + | Home Phone | | + + + | Preferred Language | Unknown | + + + | Marital Status | Single | + + + | Yazidi Affiliation | NRP | + + + | Race | White | + + + | Ethnic Group | Not or | + + + Author + + + | Author | [facility] | + + + | Organization | [facility] | + + + | [...] Team Providers + +------+ + | Care Chemical Operations And Training Name | Role | Phone | + +------+ + | No Pcp Per Patient | PP | Unavailable | + +------+ + Source Comments PERRY is fully live on both EpicCare Ambulatory and EpicCare InPatient.[facility] Allergies + + + + + [...] | | | + +--------+ +--------+-------+---------+--------+ | WAREHOUSE PRICING AND INVENTORY CLERK MEDICAID | WAREHOUSE PRICING AND INVENTORY CLERK | [id number] | Effect | | | [...] | 1981 | [phone] | [place] [address] | | | camron | | | [...]
--- OUTSIDE RECORDS SUMMARY | ~2019-01-04 | XMS | Encounter Summary ---
Demographics + + + | Address | [address] | | | [place] [address] | + + + | Home Phone [...] Author + + + | Author | [facility] | + + + | Organization | [facility] | + + + | Address [...] Team Providers + +------+ + | Care Senior Medical Technologist Name | Role | Phone | + [...] | | 2015 | | Center at [facility] [address] | [address] | Scheduling; Other | | | | [address] | [facility], | ([facility]) | | | | Mailcode: [place] | [place] [address] | | | | | [facility] and | [phone] | | | | | [facility] [address] | | | | | | [place], [place] | | | | | | [address] | | | | | | [phone] | | | +--------+ + + + [...]
--- OUTSIDE RECORDS SUMMARY | ~2019-01-04 | XMS | Encounter Summary ---
Demographics + + + | Address | [address] | | | [place] [address] | + + + | Home Phone | | + + + | Preferred Language | Unknown | + + + | Marital Status | Single | + + + | Yazidism Affiliation | NRP | + + + | Race | White | + + + | Ethnic Group | Not or | + + + Author + + + | Author | [facility] | + + + | Organization | [facility] | + + + | Address [...] Team Providers + +------+ + | Care Rag Production Worker Name | Role | Phone | + [...] | | | | CONSULT TO | [facility] | [place], [place] | | | | | HEMATOLOGY / | Rd | [address] | | | | | ONCOLOGY | [place], [place] | Phone: | | | | | | [address] | [phone] | | | | | | Phone: | Fax: | | | | | | [phone] | [phone] | | | | | | Fax: | | | | | | | [phone] | | +--------+--------+ + + + + [...] | | for Health & Healing | [place], [place] | ([facility]) (Primary Dx) | | | | [address] | [address] | | | | | Mailcode: [place] | [phone] | | | | | for Health and | | | | | | Healing, [address] | | | | | | [place], [place] | | | | | | [address] | | | | | | [phone] | | | +--------+---------+ + + + [...] 09/25/2015 Referring provider: Sully Ovalle, ACNP [address] [place] [address] Reason for Consult: DVT History: Fede Boyer [...] move. 2003: Found to have DVT [Chrissy Pelahatchie [place] (Graciela)] Treated with lovenox. Did not have [...] morning. PMH: 1. DM: dx 1995 No OH, CVA, PUD PSH: 1. L. 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 PART. THROMBO TIME) Rut Slade MD [facility] documented in this e ncounter Plan [...] [facility] | [address] | [place] [address] | | | OLESYA SOTO | PAUL [...] ranges for full anticoagulation: INR for | [facility] | | Venous Thromboembolism (2.0 - 3.0) INR INR | LABORATORY | | for most patients with mech. valves (2.5 - 3.5) INR | OLESYA SOTO | + + + + + + + + | Performing | Address | City/State/Zipcode | Phone Number | | Organization | | | | + + + + + | [facility] | [address] | [place] [address] | | | OLESYA SOTO | PAUL [...] [facility] | [address] | [place] [address] | | | SERVICES, SPECIAL | PARK [...] | + + + + + | [facility] | [address] [facility] | [place] [address] | | | SERVICES, SPECIAL | PARK [...] [facility] | [address] | [place] [address] | | | SERVICES, CORE | PARK [...] [facility] | [address] | [place] [address] | | | SERVICES, CORE | PAUL [...] SERVICES, | | | | | | [facility] | | | | | | [facility]ALTH + | | | | | | HEALING | | + +---------+ + + + + + | Specimen | + + | Blood | + + + + + | Narrative | Performed At | + + + | New reference ranges effective 2014 for ALP performed in | [facility] | | [place] [facility] only. | LABORATORY | | | SERVICES, | | | [facility] | | | HEALTH + | | | HEALING | + + + + + + + + | Performing | Address | City/State/Zipcode | Phone Number | | Organization | | | | + + + + + | [employer] | [address] | [place] [address] | | | SERVICES, [facility] | | | | | HEALTH + HEALING | | | | + + + + + documented in this encounter Visit Diagnoses + + | Diagnosis | + + | DVT (deep venous thrombosis), left - Primary | + + documented in this encounter
--- OUTSIDE RECORDS SUMMARY | ~2019-01-04 | XMS | Encounter Summary ---
Demographics + + + | Address | [address] | | | [place] [address] | + + + | Home Phone [...] Team Providers + +------+ + | Care Conductor/Brakeman Name | Role | Phone | + +------+ + | No Pcp Per Patient | PCP | Unavailable | + +------+ + Encounter Details +--------+ + + + + | Date | Type | Department | Care Team | Description | +--------+ + + + + | 07/13/ | Pharmacy | [facility] | | | | 2015 | Visit | [facility] | | | | | | [address] | | | | | | [place], [place] | | | | | | [address] | | | | | | [phone] | | | +--------+ + + + [...]
[~2019-01-04 22:31] MED LIST: ACETAMINOP80 MG/0.8 PO; CEPHALEXIN500 MG PO; FLUCONAZOLE150 MG PO; GLIPIZIDE XL5 MG PO; HYDROCODONE; LOTRIMIN15 GM TP; MEDROL4 M1 PO; METFORMIN HCL1000 MG PO; METFORMIN HCL500 MG PO; MULTIVITAMINS1 EAC7 PO; PENICILLIN V P500 MG PO; POTASSIUM GLUC500 MG PO; TRADJENTA5 MG PO; VISTARIL25 MG PO
== END 2019-01-04 23:20 | disposition home or self-care (01) ==
LOC: ED 22:31
DX: Z48.817 Encounter for surgical aftercare following surgery on the skin and subcutaneous tissue (principal); Z91.19 Patient's noncompliance with other medical treatment and regimen; E11.9 Type 2 diabetes mellitus without complications; F17.200 Nicotine dependence, unspecified, uncomplicated; Z88.5 Allergy status to narcotic agent; Z79.899 Other long term (current) drug therapy
CPT/HCPCS: 99282

== ENCOUNTER 2022-06-22 11:32 | Emergency (ER) | payer OTHER ==
[~2022-06-22] VITALS: Ht 182.9 cm; Wt 120.5 kg
--- OUTSIDE RECORDS SUMMARY | 2022-06-22 11:36 | XMS ---
PreManage Notification: ARMANI MEJIA Security Produce [employer]orer Events No recent Security Events currently on file CRITERIA MET - 6 ED Visits in 6 Months - [facility] - 2 Visits in 30 Days - [facility] PROVIDERS ROCCO MOTLEY Community Health Worker 03/17/2022-Current PHONE: [phone] Meli has no Care Guidelines for this patient. [place] VISIT COUNT (12 MO.) [address] TOTAL 7 NOTE: Visits indicate total known visits. ED/UCC VISIT TRACKING (12 MO.) 06/22/2022 11:34 [facility] [place] TYPE: Emergency COMPLAINT: - CONSTIPATION 06/02/2022 16:28 [email or web address] [place] TYPE: Emergency DIAGNOSES: - BLOOD TRANSFUSION - Chronic kidney disease, stage 4 (severe) - Anemia in chronic kidney disease 05/16/2022 13:11 [email or web address] [place] TYPE: Emergency DIAGNOSES: - BLOOD TRANSFUSION - Osteomyelitis, unspecified - Chronic kidney disease, unspecified - Anemia in chronic kidney disease - Unspecified open wound, left foot, subsequent encounter 04/17/2022 17:46 [facility] [place] TYPE: Emergency DIAGNOSES: - Anemia in chronic kidney disease - SENT BY PCP - Chronic kidney disease, stage 4 (severe) 02/13/2022 12:34 [facility] [place] TYPE: Emergency DIAGNOSES: - Other acute osteomyelitis, left ankle and foot - FOOT WOUND - Non-pressure chronic ulcer of other part of left foot with necrosis of muscle 01/16/2022 06:50 [facility] TYPE: Emergency DIAGNOSES: - Type 2 diabetes mellitus with foot ulcer - 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 without evidence of necrosis - Acute kidney failure, unspecified - Tobacco use - Body mass index [BMI] 39.0-39.9, adult - Abnormal Lab - Other specified disorders of kidney and ureter - Other obesity due to excess calories - Chronic kidney disease, unspecified - Type 2 diabetes mellitus with hyperglycemia 07/22/2021 09:08 [facility] [place] TYPE: Emergency DIAGNOSES: - Osteomyelitis, unspecified - Acute kidney failure, unspecified - Hyperkalemia - DIARRHEA INPATIENT VISIT TRACKING (12 MO.) 06/09/2022 15:53 [facility] [place] TYPE: Medical Surgical DIAGNOSES: - OSTEOMYELITIS - Other acute osteomyelitis, right ankle and foot 02/16/2022 13:05 [facility] [place] TYPE: Medical Surgical DIAGNOSES: - Cutaneous abscess of left foot - Other acute osteomyelitis, right ankle and foot - Non-pressure chronic ulcer of other part of left foot with necrosis of bone - foot osteomyelitis - Non-pressure chronic ulcer of other part of left foot with necrosis of muscle 01/16/2022 06:50 [facility] TYPE: Internal Medicine DIAGNOSES: - Tobacco use - Acute kidney failure, unspecified - Other obesity due to excess calories - 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 without evidence of necrosis - Hypomagnesemia - Other specified disorders of kidney and ureter - Other microscopic hematuria - Body mass index [BMI] 39.0-39.9, adult - Chronic kidney disease, unspecified - Type 2 diabetes mellitus with hyperglycemia - Type 2 diabetes mellitus with foot ulcer - Anemia, unspecified - Hypo-osmolality and hyponatremia 07/22/2021 20:24 [facility] TYPE: Surgical Services DIAGNOSES: - Other encephalopathy - Hypo-osmolality and hyponatremia - Other chronic osteomyelitis, unspecified site - Anemia, unspecified - Type 2 diabetes mellitus without complications - Constipation, unspecified - Hyperkalemia - Type 2 diabetes mellitus with diabetic polyneuropathy - Other specified disorders of the skin and subcutaneous tissue - Enterocolitis due to Clostridium difficile, not specified as recurrent - Other malaise - Elevated white blood cell count, unspecified - Lymphedema, not elsewhere classified - Other disorders of phosphorus metabolism - Acute kidney failure with tubular necrosis - Morbid (severe) obesity due to excess calories - Chronic kidney disease, stage 2 (mild) - Unspecified kidney failure - Acute kidney failure, unspecified [email or web address]
[2022-06-22] MEDS ORDERED: OXYCODONE HCL20 M1 PO (12:00)
[2022-06-22] MEDS ORDERED: TORSEMIDE20 MG PO (12:01)
[2022-06-22] MEDS ORDERED: AMOX TR-K CLV1 EAC1 PO (12:02)
[2022-06-22] MEDS ORDERED: ENULOSE10 GM/15 M PO (13:40)
== END 2022-06-22 14:02 | disposition home or self-care (01) ==
LOC: ED 11:32
DX: K59.00 Constipation, unspecified (principal); E11.9 Type 2 diabetes mellitus without complications; F17.200 Nicotine dependence, unspecified, uncomplicated; Z88.5 Allergy status to narcotic agent; Z79.899 Other long term (current) drug therapy; Z79.891 Long term (current) use of opiate analgesic
CPT/HCPCS: 74022; 99283-25